=== PATIENT | male | born 1990 | race Caucasian/White ===

== ENCOUNTER → 2020-06-30 08:12 | Outpatient (BNVA) | payer OTHER, MEDICAID, SELFPAY | PROVIDERS: PCP Internal Medicine; Referring Provider Internal Medicine; Visit Provider Internal Medicine Endocrinology, Diabetes & Metabolism | DX: Z76.89 Persons encountering health services in other specified circumstances (principal) ==

== ENCOUNTER 2020-06-30 17:00 | Outpatient (RCR) | payer OTHER, MEDICAID, SELFPAY | END 2020-07-03 23:55 | disposition home or self-care (01) | LOC: HO.PAOS 17:00 | PROVIDERS: Visit Provider Psychologist | DX: F44.81 Dissociative identity disorder (principal); F33.1 Major depressive disorder, recurrent, moderate; F90.9 Attention-deficit hyperactivity disorder, unspecified type; F43.10 Post-traumatic stress disorder, unspecified; F50.81 Binge eating disorder | CPT/HCPCS: 90834 ==

== ENCOUNTER 2020-12-16 09:05 | Outpatient (REF) | payer OTHER, MEDICAID, SELFPAY ==
[2020-12-16 12:04] LABS: Estimated Average Glucose 120 mg/dL; Hemoglobin A1c % 5.8 %
[2020-12-16 12:05] LABS: Glucose Fasting 114 mg/dL (60-99)
[2020-12-16 12:06] LABS: Alanine Aminotransferase 46 U/L (0-40); Albumin Level 4.3 g/dL (3.5-5.0); Alkaline Phosphatase 65 U/L (39-117); Anion Gap 19 (12-20); Aspartate Amino Transferase 51 U/L (5-37); Bilirubin Total 0.7 mg/dL (0.0-1.0); Blood Urea Nitrogen 13 mg/dL (9-16); Calcium 9.8 mg/dL (8.4-10.2); Carbon Dioxide 20 mmol/L (22-29); Chloride 100 mmol/L (96-108); Cholesterol 224 mg/dL; Estimated Glomerular Filt Rate > 60; HDL Cholesterol 48 mg/dL; LDL Cholesterol Calculated 137 mg/dl; Potassium 4.7 mmol/L (3.3-5.1); Sodium 134 mmol/L (135-145); Triglycerides 195 mg/dL
[2020-12-16 12:07] LABS: Free T4 (Free Thyroxine) 1.04 ng/dL (0.71-1.85); Thyroid Stimulating Hormone 1.14 uIU/mL (0.32-4.0)
[2020-12-16 12:34] LABS: Vitamin B12 329 pg/mL (200-900)
[2020-12-17 07:52] LABS: LDL Cholesterol Direct 142 mg/dL (<100)
== END 2020-12-16 09:06 | disposition home or self-care (01) ==
LOC: HO.LAB 09:05
PROVIDERS: PCP Internal Medicine; Visit Provider Internal Medicine Endocrinology, Diabetes & Metabolism
DX: R73.03 Prediabetes (principal); E66.01 Morbid (severe) obesity due to excess calories; Z68.44 Body mass index [BMI] 60.0-69.9, adult; E55.9 Vitamin D deficiency, unspecified; I10 Essential (primary) hypertension; G89.29 Other chronic pain; M54.9 Dorsalgia, unspecified
CPT/HCPCS: 36415; 80053; 80061; 82607; 83036; 83721; 84439; 84443

== ENCOUNTER → 2021-01-05 08:20 | Outpatient (BNVA) | payer OTHER, MEDICAID, SELFPAY | PROVIDERS: PCP Internal Medicine; Visit Provider Anesthesiology ==

== ENCOUNTER 2022-04-28 09:31 | Outpatient (REF) | payer OTHER, MEDICAID, SELFPAY ==
[2022-04-28 09:53] LABS: MANUAL DIFF FLAG NO
[2022-04-28 10:35] LABS: Basophils Percent Auto 0.5 % (0-2); Eosinophils Absolute Auto 0.1 X10*3/uL (0.0-0.4); Eosinophils Percent Auto 1.4 % (0-4); Hematocrit 43.9 % (42.0-52.0); Hemoglobin 14.9 g/dl (14.0-18.0); Imm Gran Abs Auto 0.05 X10*3/uL (0.00-0.03); Imm Gran Pct Auto 0.8 % (0.0-0.4); Lymphocytes Absolute Auto 1.3 X10*3/uL (1.2-4.9); Lymphocytes Percent Auto 19.8 % (20-40); Mean Corpuscular HGB Conc 33.9 g/dl (31.0-36.0); Mean Corpuscular Hemoglobin 30.3 pg (27.0-33.0); Mean Corpuscular Volume 89.4 fL (80.0-98.0); Mean Platelet Volume 9.5 fL (9.4-12.4); Monocytes Absolute Auto 0.7 X10*3/uL (0.1-1.2); Monocytes Percent Auto 10.2 % (2-11); Neutrophils Absolute Auto 4.4 x10*3/uL (2.0-8.3); Neutrophils Percent Auto 67.3 % (45-73); Platelet Count 307 X10*3/uL (160-400); Red Blood Count 4.91 X10*6/uL (4.60-5.80); White Blood Count 6.6 X10*3/uL (4.8-10.8)
[2022-04-28 11:15] LABS: Alanine Aminotransferase 34 U/L (0-40); Alkaline Phosphatase 86 U/L (39-117); Anion Gap 20 (12-20); Aspartate Amino Transferase 28 U/L (5-37); Bilirubin Total 0.5 mg/dL (0.0-1.0); Blood Urea Nitrogen 10 mg/dL (9-16); Calcium 9.4 mg/dL (8.4-10.2); Carbon Dioxide 21 mmol/L (22-29); Chloride 99 mmol/L (96-108); Cholesterol 196 mg/dL; Estimated Glomerular Filt Rate > 60; Glucose Fasting 197 mg/dL (60-99); HDL Cholesterol 41 mg/dL; LDL Cholesterol Calculated 128 mg/dl; Potassium 4.6 mmol/L (3.3-5.1); Sodium 135 mmol/L (135-145); Total Protein 7.2 g/dL (6.5-8.0); Triglycerides 138 mg/dL
[2022-04-28 11:28] LABS: Thyroid Stimulating Hormone 1.63 uIU/mL (0.32-4.0)
== END 2022-04-28 09:32 | disposition home or self-care (01) ==
LOC: HO.LAB 09:31
PROVIDERS: PCP Internal Medicine; Visit Provider Internal Medicine
DX: Z00.00 Encounter for general adult medical examination without abnormal findings (principal); Z13.0 Encounter for screening for diseases of the blood and blood-forming organs and certain disorders involving the immune mechanism; Z13.9 Encounter for screening, unspecified
CPT/HCPCS: 36415; 80053; 80061; 84443; 85025

== ENCOUNTER → 2022-04-29 08:57 | Outpatient (BNVA) | payer OTHER, MEDICAID, SELFPAY | PROVIDERS: PCP Internal Medicine; Visit Provider Internal Medicine Endocrinology, Diabetes & Metabolism | DX: E11.69 Type 2 diabetes mellitus with other specified complication (principal); E66.01 Morbid (severe) obesity due to excess calories; Z68.45 Body mass index [BMI] 70 or greater, adult | CPT/HCPCS: 83036 ==

== ENCOUNTER 2022-09-01 08:54 | Outpatient (REF) | payer OTHER, MEDICAID, SELFPAY ==
[2022-09-01 11:33] LABS: Cholesterol 148 mg/dL; HDL Cholesterol 43 mg/dL; LDL Cholesterol Calculated 84 mg/dl; Triglycerides 107 mg/dL
[2022-09-01 11:36] LABS: Estimated Average Glucose 151 mg/dL; Hemoglobin A1c % 6.9 %
== END 2022-09-01 08:55 | disposition home or self-care (01) ==
LOC: HO.10HDL 08:54
PROVIDERS: Absent Provider Internal Medicine; Visit Provider Internal Medicine Endocrinology, Diabetes & Metabolism
DX: E11.69 Type 2 diabetes mellitus with other specified complication (principal); E66.01 Morbid (severe) obesity due to excess calories
CPT/HCPCS: 36415; 80061; 83036

== ENCOUNTER → 2022-09-02 07:51 | Outpatient (BNVA) | payer OTHER, MEDICAID, SELFPAY | PROVIDERS: PCP Internal Medicine; Visit Provider Internal Medicine Endocrinology, Diabetes & Metabolism | DX: E11.69 Type 2 diabetes mellitus with other specified complication (principal); E66.01 Morbid (severe) obesity due to excess calories; Z79.84 Long term (current) use of oral hypoglycemic drugs; Z68.45 Body mass index [BMI] 70 or greater, adult | CPT/HCPCS: 82947 ==

== ENCOUNTER → 2022-09-14 16:22 | Outpatient (BNVA) | payer OTHER, MEDICAID, SELFPAY | PROVIDERS: PCP Internal Medicine; Visit Provider Psychiatry & Neurology Psychiatry | DX: R73.03 Prediabetes (principal) ==

== ENCOUNTER → 2022-10-28 14:00 | Outpatient (BNVA) | payer OTHER, MEDICAID, SELFPAY | PROVIDERS: PCP Internal Medicine; Visit Provider Psychiatry & Neurology Psychiatry | DX: R73.03 Prediabetes (principal) ==

== ENCOUNTER → 2022-12-22 17:07 | Outpatient (BNVA) | payer OTHER, SELFPAY | PROVIDERS: PCP Internal Medicine; Visit Provider Psychiatry & Neurology Psychiatry ==

== ENCOUNTER 2023-01-27 16:53 | Outpatient (AMB) | payer OTHER, SELFPAY ==
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
== END 2023-01-27 17:30 | disposition home or self-care (01) ==
LOC: HO.HOP 16:53
PROVIDERS: PCP Internal Medicine; Visit Provider Psychiatry & Neurology Psychiatry
DX: F33.9 Major depressive disorder, recurrent, unspecified (principal); F43.12 Post-traumatic stress disorder, chronic; E66.01 Morbid (severe) obesity due to excess calories; E11.69 Type 2 diabetes mellitus with other specified complication; M48.00 Spinal stenosis, site unspecified
CPT/HCPCS: 90833; 99213; 99214

== ENCOUNTER → 2023-01-27 16:53 | Outpatient (BNVA) | payer OTHER, SELFPAY | PROVIDERS: PCP Internal Medicine; Visit Provider Psychiatry & Neurology Psychiatry ==

== ENCOUNTER 2023-01-31 06:14 | Outpatient (REF) | payer OTHER, SELFPAY | END 2023-01-31 06:15 | disposition home or self-care (01) | LOC: HO.LAB 06:14 | PROVIDERS: PCP Internal Medicine; Visit Provider Internal Medicine | DX: E03.9 Hypothyroidism, unspecified (principal); D64.9 Anemia, unspecified; N28.9 Disorder of kidney and ureter, unspecified; R73.9 Hyperglycemia, unspecified; E78.5 Hyperlipidemia, unspecified | CPT/HCPCS: 36415; 80053; 80061; 83036; 84443; 85025 ==

== ENCOUNTER 2023-04-18 16:14 | Outpatient (AMB) | payer OTHER, MEDICAID, SELFPAY ==
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
== END 2023-04-18 16:14 | disposition home or self-care (01) ==
LOC: HO.HOP 16:14
PROVIDERS: PCP Internal Medicine; Visit Provider Psychiatry & Neurology Psychiatry
DX: F33.9 Major depressive disorder, recurrent, unspecified (principal); F43.12 Post-traumatic stress disorder, chronic
CPT/HCPCS: 99214

== ENCOUNTER → 2023-04-18 16:14 | Outpatient (BNVA) | payer OTHER, MEDICAID, SELFPAY | PROVIDERS: PCP Internal Medicine; Visit Provider Psychiatry & Neurology Psychiatry ==

== ENCOUNTER 2023-05-06 09:01 | Outpatient (REF) | payer OTHER, MEDICAID, SELFPAY | END 2023-05-06 09:02 | disposition home or self-care (01) | LOC: HO.LAB 09:01 | PROVIDERS: PCP Internal Medicine; Visit Provider Internal Medicine | DX: Z13.89 Encounter for screening for other disorder (principal) ==

== ENCOUNTER 2023-05-19 09:38 | Outpatient (AMB) | payer OTHER, MEDICAID, SELFPAY ==
[2023-05-19 09:44] VITALS: BP 134/70; PULSE 74; O2SAT 98; BMI 71.2
--- NOTE | 2023-05-19 09:44 | MHC.PC.OV ---
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: Not Required per policy Accompanied by: Self / Same As Patient Allergies Sulfa (Sulfonamide Antibiotics) [SULFA (SULFONAMIDE ANTIBIOTICS)] Allergy (Unknown, Verified 05/19/23 09:45) RASH sulfamethoxazole [From BACTRIM] Allergy (Unknown, Verified 05/19/23 09:45) RASH trimethoprim [From BACTRIM] Allergy (Unknown, Verified 05/19/23 09:45) RASH Medication List - Last Reconciled 05/19/23 by Zaid Fairchild MD atorvastatin 10 mg PO DAILY blood sugar diagnostic (FreeStyle Lite Strips) As directed tests 2 X/day blood-glucose meter (FreeStyle Lite Meter kit) As directed 2 X/day buspirone 15 mg PO TID 30 days cholecalciferol (vitamin D3) 50 mcg PO DAILY 90 days clonazepam 0.5 mg PO TID clonidine HCl 0.1 mg PO BID 90 days duloxetine 60 mg PO BID gabapentin 300 mg PO TID lancets (FreeStyle Lancets) As directed tests 2 X/day lisinopril 10 mg PO DAILY lorazepam 1 mg PO DAILY PRN metformin ER 500 mg PO BID 90 days naproxen 500 mg PO Q12H PRN oxcarbazepine 300 mg PO BID pen needle, diabetic (BD Ultra-Fine [place] Pen Needle) 1 ea subcut DIRECTED 90 days propranolol 20 mg (2 x 10 mg) PO TID 30 days risperidone 0.5 mg PO BID triamcinolone acetonide 0.5% 1 appl topical TID Tobacco use date assessed: 08/13/22 Dental Screening Dental Screen Date: 05/19/23 Did you have a dental visit in the last 12 months?: No Did you have a dental problem in the last 6 months where you did not have access to dental care?: No Was dental information given to patient?: Patient has dentist HPI 6 month f/u HPI Details DM morbid obesity htn; has not followed up with weight management [facility] Medical History Major depression, recurrent, chronic Chronic post-traumatic stress disorder (PTSD) Morbid obesity Type 2 diabetes mellitus with morbid obesity Spinal stenosis Spondylolisthesis of lumbar region Diabetes mellitus Anxiety Depression Hypertension Prediabetes Vitamin D deficiency Morbid obesity Surgical History No pertinent past surgical history Family History Father Hypertension Heart disease CVA (cerebral vascular accident) Mother Hypertension Diabetes Thyroid nodule Obesity Social History Housing: House Alcohol intake: current Alcohol intake frequency: holidays/special occasions only Patient Tobacco Use Status: Never used Tobacco e-Cigarette/Vaping Use: Never Used Second Hand Smoke Exposure: No service: No Current occupational status: disabled Cognitive needs: No Hearing needs: No Vision needs: No Questionnaire PHQ-9 Over the last 2 weeks, how often have you been bothered by any of the following problems? 1. Little interest or pleasure in doing things: more than half the days 2. Feeling down, depressed, or hopeless: nearly every day 3. Trouble falling or staying asleep, or sleeping too much: more than half the days 4. Feeling tired or having little energy: more than half the days 5. Poor appetite or overeating: more than half the days 6. Feeling bad about yourself - or that you are a failure or have let yourself or your family down: more than half the days 7. Trouble concentrating on things, such as reading the newspaper or watching television: more than half the days 8. Moving or speaking so slowly that other people could have noticed. Or the opposite - being so fidgety or restless that you have been moving around a lot more than usual: more than half the days 9. Thoughts that you would be better off or of hurting yourself in some way: several days Total score: 18 Depression Screening Interpretation: Positive Depression Screening Done: Yes 34706 - PHQ-9 Billing: Yes Source: Developed by Drs. Kyle Chiang, Padmaja Shen, Maximus Cyr and colleagues, with an educational pastor from [employer]. Thrive Questionnaire Date Thrive assessed: 08/13/22 AUDIT C Alcohol Use Questionnaire (AUDIT-C) 1. How often do you have a drink containing alcohol?: Never Total Score: 0 Score Reviewed/Action Taken: Yes CARLOS-7 AMB Questionnaire CARLOS-7 Date CARLOS - 7 assessed: 11/19/22 Source: Developed by Drs. Kyle Chiang, Padmaja Shen, Maximus Cyr and colleagues, with an educational pastor from [employer]. Review of Systems Const Denies chills, Denies headache(s) and Denies weight loss ENT Denies headache(s) Card Denies chest pain, Denies syncope, Denies irregular heart rhythm and Denies dyspnea Resp Denies chest congestion, Denies cough and Denies dyspnea GI Denies abdominal pain, Denies change in stool character, Denies nausea and Denies vomiting Musc Denies deformity and Denies joint swelling Neuro Denies syncope and Denies headache(s) Physical exam (Primary Care) Vital Signs: Last Vital Signs Pulse 74 05/19/23 09:44 BP 134/70 05/19/23 09:44 Pulse Ox 98 05/19/23 09:44 Oxygen Delivery Method Room Air 05/19/23 09:44 BMI result Body Mass Index 71.2 Tobacco/Smoking Status: Tobacco use Status Tobacco use date assessed 08/13/22 05/19/23 09:52 Patient Tobacco Use Status Never used Tobacco 05/19/23 09:52 e-Cigarette/Vaping Use Never Used 05/19/23 09:52 PHQ-9: PHQ-9 Score PHQ-9: Total score 18 05/19/23 09:52 Depression Screening Interpretation: Positive Thrive Assessment: Date of Thrive Assessment Date Thrive assessed 08/13/22 05/19/23 09:52 Const General: cooperative, comfortable, no acute distress and alert Neck Neck: Yes no lymphadenopathy Thyroid: Thyroid normal Resp Effort & Inspection: normal respiratory effort Auscultation: clear to auscultation bilaterally Percussion: percussion normal Cardio Jugular venous distension: no JVD Palpation: normal PMI Rate: regular rate Rhythm: regular rhythm Heart sounds: S1 normal heart sound present and S2 normal heart sound present GI Inspection: Yes normal to inspection Palpation (GI): No hepatosplenomegaly present Skin General skin exam: no rashes or lesions noted Extrem General: Yes no clubbing, cyanosis or edema Assessment and Plan Assessment & Plan (1) Major depression, recurrent, chronic: Code(s): F33.9 - Major depressive disorder, recurrent, unspecified Plan: sees psych (2) Hyperlipidemia: Code(s): E78.5 - Hyperlipidemia, unspecified Plan: due for labs (3) Morbid obesity: Code(s): E66.01 - Morbid (severe) obesity due to excess calories Plan: encouraged to follow through with weight management (4) Type 2 diabetes mellitus with morbid obesity: Code(s): E11.69 - Type 2 diabetes mellitus with other specified complication; E66.01 - Morbid (severe) obesity due to excess calories Plan: stable; same rx (5) Hypertension: Code(s): I10 - Essential (primary) hypertension Plan: stable; same rx Orders: Orders Complete Blood Count Auto Diff Today D64.9 - Anemia, unspecified Lipid Panel Today E78.5 - Hyperlipidemia, unspecified Comprehensive [place]. Panel Fast Today N28.9 - Disorder of kidney and ureter, unspecified Microalbumin, Random (w Creat) Today E11.69 - Type 2 diabetes mellitus with other specified complication, E66.01 - Morbid (severe) obesity due to excess calories Thyroid Stimulating Hormone Today E03.9 - Hypothyroidism, unspecified Hemoglobin A1c Today R73.9 - Hyperglycemia, unspecified Coding Level of Care Code Tele Est Pt Level 4 (55430) Diagnoses Major depression, recurrent, chronic F33.9 Hyperlipidemia E78.5 Morbid obesity E66.01 Type 2 diabetes mellitus with morbid obesity E11.69; E66.01 Hypertension I10
== END 2023-05-19 10:01 | disposition home or self-care (01) ==
PROVIDERS: Visit Provider Internal Medicine
DX: E11.69 Type 2 diabetes mellitus with other specified complication (principal); F33.9 Major depressive disorder, recurrent, unspecified; E66.01 Morbid (severe) obesity due to excess calories; Z68.45 Body mass index [BMI] 70 or greater, adult; E78.5 Hyperlipidemia, unspecified; I10 Essential (primary) hypertension
CPT/HCPCS: 99214

== ENCOUNTER 2023-06-08 16:15 | Outpatient (AMB) | payer OTHER, MEDICAID, SELFPAY ==
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
== END 2023-06-08 16:16 | disposition home or self-care (01) ==
LOC: HO.HOP 16:15
PROVIDERS: PCP Internal Medicine; Visit Provider Psychiatry & Neurology Psychiatry
DX: F33.9 Major depressive disorder, recurrent, unspecified (principal); F43.12 Post-traumatic stress disorder, chronic; E11.69 Type 2 diabetes mellitus with other specified complication; E66.01 Morbid (severe) obesity due to excess calories; M48.00 Spinal stenosis, site unspecified
CPT/HCPCS: 90833; 99213

== ENCOUNTER → 2023-06-08 16:15 | Outpatient (BNVA) | payer OTHER, MEDICAID, SELFPAY | PROVIDERS: PCP Internal Medicine; Visit Provider Psychiatry & Neurology Psychiatry ==

== ENCOUNTER 2023-07-21 16:14 | Outpatient (AMB) | payer OTHER, MEDICAID, SELFPAY ==
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
== END 2023-07-21 16:14 | disposition home or self-care (01) ==
LOC: HO.HOP 16:14
PROVIDERS: PCP Internal Medicine; Visit Provider Psychiatry & Neurology Psychiatry
DX: F33.9 Major depressive disorder, recurrent, unspecified (principal); F43.12 Post-traumatic stress disorder, chronic; E11.69 Type 2 diabetes mellitus with other specified complication; E66.01 Morbid (severe) obesity due to excess calories; M48.00 Spinal stenosis, site unspecified
CPT/HCPCS: 99214

== ENCOUNTER → 2023-07-21 16:14 | Outpatient (BNVA) | payer OTHER, MEDICAID, SELFPAY | PROVIDERS: PCP Internal Medicine; Visit Provider Psychiatry & Neurology Psychiatry ==

== ENCOUNTER 2023-09-29 17:10 | Outpatient (AMB) | payer OTHER, MEDICAID, SELFPAY ==
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
== END 2023-09-29 17:11 | disposition home or self-care (01) ==
LOC: HO.HOP 17:10
PROVIDERS: PCP Internal Medicine; Visit Provider Psychiatry & Neurology Psychiatry
DX: F33.9 Major depressive disorder, recurrent, unspecified (principal); F43.12 Post-traumatic stress disorder, chronic; E66.01 Morbid (severe) obesity due to excess calories; E11.69 Type 2 diabetes mellitus with other specified complication; M48.00 Spinal stenosis, site unspecified
CPT/HCPCS: 99214

== ENCOUNTER → 2023-09-29 17:10 | Outpatient (BNVA) | payer OTHER, MEDICAID, SELFPAY | PROVIDERS: PCP Internal Medicine; Visit Provider Psychiatry & Neurology Psychiatry ==

== ENCOUNTER 2023-11-10 08:03 | Outpatient (REF) | payer OTHER, MEDICAID, SELFPAY ==
[2023-11-10 08:33] LABS: MANUAL DIFF FLAG NO
[2023-11-10 08:48] LABS: Basophils Absolute Auto 0.1 X10*3/uL (0.0-0.2); Basophils Percent Auto 0.6 % (0-2); Eosinophils Absolute Auto 0.3 X10*3/uL (0.0-0.4); Eosinophils Percent Auto 3.1 % (0-4); Hematocrit 45.7 % (42.0-52.0); Hemoglobin 15.4 g/dl (14.0-18.0); Imm Gran Abs Auto 0.03 X10*3/uL (0.00-0.03); Imm Gran Pct Auto 0.3 % (0.0-0.4); Lymphocytes Absolute Auto 3.5 X10*3/uL (1.2-4.9); Lymphocytes Percent Auto 37.4 % (20-40); Mean Corpuscular HGB Conc 33.7 g/dl (31.0-36.0); Mean Corpuscular Hemoglobin 29.8 pg (27.0-33.0); Mean Corpuscular Volume 88.6 fL (80.0-98.0); Mean Platelet Volume 9.1 fL (9.4-12.4); Monocytes Absolute Auto 0.6 X10*3/uL (0.1-1.2); Monocytes Percent Auto 6.5 % (2-11); Neutrophils Absolute Auto 4.8 x10*3/uL (2.0-8.3); Neutrophils Percent Auto 52.1 % (45-73); Platelet Count 332 X10*3/uL (160-400); Red Blood Count 5.16 X10*6/uL (4.60-5.80); White Blood Count 9.3 X10*3/uL (4.8-10.8)
[2023-11-10 08:56] LABS: Estimated Average Glucose 180 mg/dL; Hemoglobin A1c % 7.9 % (<6.0)
[2023-11-10 09:22] LABS: Alanine Aminotransferase 29 U/L (0-40); Albumin Level 4.1 g/dL (3.5-5.0); Alkaline Phosphatase 87 U/L (39-117); Anion Gap 11 (12-20); Aspartate Amino Transferase 21 U/L (5-37); Bilirubin Total 0.6 mg/dL (0.0-1.0); Blood Urea Nitrogen 11 mg/dL (9-16); Calcium 9.8 mg/dL (8.4-10.2); Carbon Dioxide 29 mmol/L (22-29); Chloride 100 mmol/L (96-108); Cholesterol 210 mg/dL (<200); Estimated Glomerular Filt Rate > 60; Glucose Fasting 171 mg/dL (60-99); HDL Cholesterol 38 mg/dL (>40); LDL Cholesterol Calculated 136 mg/dL (<100); Potassium 4.4 mmol/L (3.3-5.1); Sodium 136 mmol/L (135-145); Total Protein 7.6 g/dL (6.5-8.0); Triglycerides 180 mg/dL (<150)
[2023-11-10 09:36] LABS: Thyroid Stimulating Hormone 4.13 uIU/mL (0.32-4.0)
== END 2023-11-10 08:04 | disposition home or self-care (01) ==
LOC: HO.LAB 08:03
PROVIDERS: PCP Internal Medicine; Visit Provider Internal Medicine
DX: N28.9 Disorder of kidney and ureter, unspecified (principal); E03.9 Hypothyroidism, unspecified; R73.9 Hyperglycemia, unspecified; D64.9 Anemia, unspecified; E78.5 Hyperlipidemia, unspecified
CPT/HCPCS: 36415; 80053; 80061; 83036; 84443; 85025

== ENCOUNTER 2023-11-22 08:55 | Outpatient (AMB) | payer OTHER, MEDICAID, SELFPAY ==
[2023-11-22 08:57] VITALS: BP 136/84; PULSE 74; O2SAT 98
--- NOTE | 2023-11-22 08:57 | MHC.PC.OV ---
Vital Signs 11/22/23 08:57 Height 6 ft BMI Reason not done Patient refused/unable BP 136/84 Blood Pressure Location Lt radial Position Sitting Pulse 74 Pulse Source Pulse Oximeter Pulse Oximetry (%) 98 Oxygen Delivery Method Room Air Intake Visit Reasons: Annual Exam [employer] Required: No Coronary Care Unit Nurse: Not Required per policy Accompanied by: Self / Same As Patient Allergies Sulfa (Sulfonamide Antibiotics) [SULFA (SULFONAMIDE ANTIBIOTICS)] Allergy (Unknown, Verified 11/22/23 08:57) RASH sulfamethoxazole [From BACTRIM] Allergy (Unknown, Verified 11/22/23 08:57) RASH trimethoprim [From BACTRIM] Allergy (Unknown, Verified 11/22/23 08:57) RASH Medication List - Last Reconciled 11/22/23 by Zaid Fairchild MD atorvastatin 10 mg PO DAILY blood sugar diagnostic (FreeStyle Lite Strips) As directed tests 2 X/day blood-glucose meter (FreeStyle Lite Meter kit) As directed 2 X/day buspirone 15 mg PO TID 30 days cholecalciferol (vitamin D3) 50 mcg PO DAILY 90 days clonazepam 0.5 mg PO TID clonidine HCl 0.1 mg PO BID 90 days duloxetine 60 mg PO BID gabapentin 300 mg PO TID lancets (FreeStyle Lancets) As directed tests 2 X/day lisinopril 10 mg PO DAILY lorazepam 1 mg PO DAILY PRN metformin ER 500 mg PO BID 90 days naproxen 500 mg PO Q12H PRN oxcarbazepine 300 mg PO BID pen needle, diabetic (BD Ultra-Fine [place] Pen Needle) 1 ea subcut DIRECTED 90 days propranolol 20 mg (2 x 10 mg) PO TID 30 days risperidone 0.5 mg PO BID triamcinolone acetonide 0.5% 1 appl topical TID Tobacco use date assessed: 11/22/23 Dental Screening Dental Screen Date: 11/22/23 Did you have a dental visit in the last 12 months?: No Did you have a dental problem in the last 6 months where you did not have access to dental care?: No Was dental information given to patient?: Patient has dentist HPI Annual Exam HPI Details diabetes hyperlipidemia and morbid obesity; A1C going up; compliant with meds [facility] Medical History Major depression, recurrent, chronic Chronic post-traumatic stress disorder (PTSD) Morbid obesity Type 2 diabetes mellitus with morbid obesity Spinal stenosis Spondylolisthesis of lumbar region Diabetes mellitus Anxiety Depression Hypertension Prediabetes Vitamin D deficiency Morbid obesity Surgical History No pertinent past surgical history Family History Father Hypertension Heart disease CVA (cerebral vascular accident) Mother Hypertension Diabetes Thyroid nodule Obesity Social History Housing: House Alcohol intake: current Alcohol intake frequency: holidays/special occasions only Patient Tobacco Use Status: Never used Tobacco e-Cigarette/Vaping Use: Never Used Second Hand Smoke Exposure: No service: No Current occupational status: disabled Cognitive needs: Yes (cane) Hearing needs: No Vision needs: No Questionnaire PHQ-9 Over the last 2 weeks, how often have you been bothered by any of the following problems? 1. Little interest or pleasure in doing things: more than half the days 2. Feeling down, depressed, or hopeless: nearly every day 3. Trouble falling or staying asleep, or sleeping too much: more than half the days 4. Feeling tired or having little energy: more than half the days 5. Poor appetite or overeating: more than half the days 6. Feeling bad about yourself - or that you are a failure or have let yourself or your family down: more than half the days 7. Trouble concentrating on things, such as reading the newspaper or watching television: more than half the days 8. Moving or speaking so slowly that other people could have noticed. Or the opposite - being so fidgety or restless that you have been moving around a lot more than usual: more than half the days 9. Thoughts that you would be better off or of hurting yourself in some way: several days Total score: 18 Depression Screening Interpretation: Positive Depression Screening Done: Yes 15257 - PHQ-9 Billing: Yes Source: Developed by Drs. Kyle Chiang, Padmaja Shen, Maximus Cyr and colleagues, with an educational pastor from [employer]. Thrive Questionnaire Date Thrive assessed: 11/22/23 I am a: Patient What is your living situation today?: I have a steady place to live Within the past 12 months, did the food you bought not last and you didn't have the money to get more?: Never true Within the past 12 months, did you worry whether your food would run out before you got money to buy more?: Never true Do you have trouble paying for medicines?: No Do you have trouble getting transportation to medical appointments?: No Do you have trouble paying your heating and electricity bill?: No Do you have trouble taking care of your child, family member or friend?: No Do you have trouble with day-to-day activities such as bathing, preparing meals, shopping, managing finances, etc.?: No Are you currently unemployed and looking for a job?: No Are you interested in more education?: No Please select the resources that you would like help with: None THRIVE Score: 0 AUDIT C Alcohol Use Questionnaire (AUDIT-C) 1. How often do you have a drink containing alcohol?: Never Total Score: 0 Score Reviewed/Action Taken: Yes CARLOS-7 AMB Questionnaire CARLOS-7 Date CARLOS - 7 assessed: 11/22/23 Feeling nervous, anxious, or on edge: 0 = Not at all Not being able to stop or control worryin = Not at all Worrying too much about different things: 0 = Not at all Trouble relaxin = Not at all Being so restless that it is hard to sit still: 0 = Not at all Becoming easily annoyed or irritable: 0 = Not at all Feeling afraid as if something awful might happen: 0 = Not at all Total CARLOS-7 score (0-4 normal; 5-9 mild; 10-14 moderate; 15-21 severe): 0 Source: Developed by Drs. Kyle Chiang, Padmaaj Shen, Maximus Cyr and colleagues, with an educational pastor from [employer]. Review of Systems Const Denies chills, Denies headache(s) and Denies weight loss ENT Denies headache(s) Card Denies chest pain, Denies syncope, Denies irregular heart rhythm and Denies dyspnea Resp Denies chest congestion, Denies cough and Denies dyspnea GI Denies abdominal pain, Denies change in stool character, Denies nausea and Denies vomiting Musc Denies deformity and Denies joint swelling Neuro Denies syncope and Denies headache(s) Physical exam (Primary Care) Vital Signs: Last Vital Signs Pulse 74 11/22/23 08:57 BP 136/84 11/22/23 08:57 Pulse Ox 98 11/22/23 08:57 Oxygen Delivery Method Room Air 11/22/23 08:57 Tobacco/Smoking Status: Tobacco use Status Tobacco use date assessed 11/22/23 11/22/23 08:59 Patient Tobacco Use Status Never used Tobacco 11/22/23 08:59 e-Cigarette/Vaping Use Never Used 11/22/23 08:59 PHQ-9: PHQ-9 Score PHQ-9: Total score 18 11/22/23 09:14 Depression Screening Interpretation: Positive Thrive Assessment: Date of Thrive Assessment Date Thrive assessed 11/22/23 11/22/23 08:59 Const General: cooperative, comfortable, no acute distress and alert Neck Neck: Yes no lymphadenopathy Thyroid: Thyroid normal Resp Effort & Inspection: normal respiratory effort Auscultation: clear to auscultation bilaterally Percussion: percussion normal Cardio Jugular venous distension: no JVD Palpation: normal PMI Rate: regular rate Rhythm: regular rhythm Heart sounds: S1 normal heart sound present and S2 normal heart sound present GI Inspection: Yes normal to inspection Palpation (GI): No hepatosplenomegaly present Skin General skin exam: no rashes or lesions noted Extrem General: Yes no clubbing, cyanosis or edema Assessment and Plan Assessment & Plan (1) Hyperlipidemia: Code(s): E78.5 - Hyperlipidemia, unspecified Plan: stable; same rx (2) Morbid obesity: Code(s): E66.01 - Morbid (severe) obesity due to excess calories Plan: will try referral again to weight management (3) Type 2 diabetes mellitus with morbid obesity: Code(s): E11.69 - Type 2 diabetes mellitus with other specified complication; E66.01 - Morbid (severe) obesity due to excess calories Plan: increase metformin Orders: Orders Lipid Panel Today Z13.220 - Encounter for screening for lipoid disorders Hemoglobin A1c Today R73.9 - Hyperglycemia, unspecified Glucose Fasting Today R73.9 - Hyperglycemia, unspecified Referrals Medical Weight Management Referral E66.01 - Morbid (severe) obesity due to excess calories Medications: New metformin 1,000 mg PO BID 180 tabs 8RF Refilled atorvastatin 10 mg PO DAILY 90 tabs 1RF Coding Level of Care Code Est Pt Level 4 (65522) Diagnoses Hyperlipidemia E78.5 Morbid obesity E66.01 Type 2 diabetes mellitus with morbid obesity E11.69; E66.01
== END 2023-11-22 09:22 | disposition home or self-care (01) ==
PROVIDERS: PCP Internal Medicine; Visit Provider Internal Medicine
DX: E78.5 Hyperlipidemia, unspecified (principal); E66.01 Morbid (severe) obesity due to excess calories; Z68.45 Body mass index [BMI] 70 or greater, adult; E11.69 Type 2 diabetes mellitus with other specified complication
CPT/HCPCS: 99214

== ENCOUNTER → 2023-12-02 10:29 | Outpatient (BNVA) | payer OTHER, MEDICAID, SELFPAY | PROVIDERS: PCP Internal Medicine; Visit Provider Physician Assistant Surgical ==

== ENCOUNTER 2024-01-03 17:29 | Outpatient (AMB) | payer OTHER, MEDICAID, SELFPAY ==
--- NOTE | 2024-01-03 16:22 | MHC.OFFVISPS ---
Intake Intake Visit Reasons: depression Allergies Sulfa (Sulfonamide Antibiotics) [SULFA (SULFONAMIDE ANTIBIOTICS)] Allergy (Unknown, Verified 11/22/23 08:57) RASH sulfamethoxazole [From BACTRIM] Allergy (Unknown, Verified 11/22/23 08:57) RASH trimethoprim [From BACTRIM] Allergy (Unknown, Verified 11/22/23 08:57) RASH Medication List - Last Reconciled 01/03/24 by Diego Marshall MD atorvastatin 10 mg PO DAILY blood sugar diagnostic (FreeStyle Lite Strips) As directed tests 2 X/day blood-glucose meter (FreeStyle Lite Meter kit) As directed 2 X/day buspirone 15 mg PO TID 30 days cholecalciferol (vitamin D3) 50 mcg PO DAILY 90 days clonazepam 0.5 mg PO TID clonidine HCl 0.1 mg PO BID 90 days duloxetine 60 mg PO BID gabapentin 300 mg PO TID lancets (FreeStyle Lancets) As directed tests 2 X/day lisinopril 10 mg PO DAILY lorazepam 1 mg PO DAILY PRN metformin 1,000 mg PO BID metformin ER 500 mg PO BID 90 days naproxen 500 mg PO Q12H PRN oxcarbazepine 300 mg PO BID pen needle, diabetic (BD Ultra-Fine [place] Pen Needle) 1 ea subcut DIRECTED 90 days propranolol 20 mg (2 x 10 mg) PO TID 30 days risperidone 0.5 mg PO BID triamcinolone acetonide 0.5% 1 appl topical TID HPI- Psychiatric Chief Complaint: depression HPI Narrative: Patient seen psychiatric follow-up patient's mood consistently labile still not on any medication for morbid obesity for reasons that are not totally clear he did not tolerate monjaro with his mother apparently. Patient remains on treatment for mood instability consistent with PTSD adrenergic interventions antidepressants patient has not had significant self-harming behavior chronic difficulties in leaving the house being with other people Past Psychiatric History: pt has hx of ptsd reactivity periods of depression reactivity continues see Dr. Kyle Black. Essentially patient remains homebound both for medical reasons secondary to weight chronic pain difficulty with ambulation and for emotional reasons with concerns regarding reactivity. I have encouraged the patient to consider getting his GED to look at working online he has not been interested in volunteer work working with [facility] he has been on the extensive regimen that includes antipsychotics antidepressants and mood stabilizing agents. This seems to stabilize the patient some degree pharmacologically but has limited coping strategies for his life and reactivity which include food online kev no evidence of oral facial dyskinesia patient is on Risperdal schedule clonazepam Trileptal Cymbalta patient is in something of a bind he might benefit from surgical treatment of morbid obesity however he knows that food bingeing as 1 of his coping strategies any can not imagine limiting this. He is being treated metabolically his weight limits his ability to walk and difficulties with chronic pain Mental Status Exam Mental Status Exam Patient Appearance: Well Grooomed Level of Consciousness: Awake and Appropriate Patient Behavior: Cooperative Mood Description: Anxious, Labile and Apprehensive Affect Description: Appropriate, Constricted and Apprehensive Speech Pattern: Clear Memory Description: Intact Delusions: Not Present Thought Process: Intact Thought Content: positive for Preoccupation, negative for Suicidal Ideation (Denies active plan) or negative for Homicidal Ideation Depressive Symptoms: Increased Anxiety, Increased Irritability, Crying Spells, Feelings of Worthlessness, Loss of Energy and Difficulty Concentrating Judgement: Fair Judgement and Insight: No evidence of oral facial dyskinesia chronic suicidal statements or fantasize regarding impulsive violence but no behavior really planning or any actual people but fear if he was not isolated that he would be overwhelmed by his feeling states he does feel Risperdal is helpful an Ativan helpful in rescue Telehealth Telehealth Telehealth Platform: Other (please specify) (doxsin me ) Location of provider rendering services: practice address Location of patient: address on file Patient Identification confirmed using: Name, : Yes Telehealth method: video Patient verbally consented to treatment: Yes Patient verbally consented to billing insurance company: Yes Minutes spent on Phone/Video with Pt.: 18 Assessment and Plan Assessment & Plan (1) Chronic post-traumatic stress disorder (PTSD): Status: Acute Code(s): F43.12 - Post-traumatic stress disorder, chronic (2) Major depression, recurrent, chronic: Status: Acute Code(s): F33.9 - Major depressive disorder, recurrent, unspecified (3) Morbid obesity: Status: Acute Code(s): E66.01 - Morbid (severe) obesity due to excess calories (4) Type 2 diabetes mellitus with morbid obesity: Status: Acute Code(s): E11.69 - Type 2 diabetes mellitus with other specified complication; E66.01 - Morbid (severe) obesity due to excess calories (5) Spinal stenosis: Status: Acute Code(s): M48.00 - Spinal stenosis, site unspecified Plan Continue plan of care strongly encouraged treatment of patient's morbid obesity and behavioral treatment of severe PTSD with isolation Limited strategies to manage anxiety and impulsivity. Chronic thoughts at times he would be better off but denies intent or plan has not acted on this has not harmed anyone has difficulty engaging world and his chronic pain and spinal stenosis or limiting his functioning No oral facial dyskinesia patient aware of risks benefits alternatives side effects. No evidence abuse of benzodiazepines has lorazepam for rescue Risperdal appears to have been helpful in decreasing agitation impulsivity Counseling and coordination of Care Diagnosis and Prognosis Counseling: Problematic behaviors secondary to diagnosis and Adequacy of current interventions Details: I spent [23] minutes reviewing the record, seeing the patient and documenting in the medical record. Counseling provided to the patient/caregiver as outlined below. Addressed patient/caregiver concerns regarding current medication regime including effective adherence. Addressed patient/caregiver concerns regarding diagnosis and prognosis including accuracy of diagnosis, prognosis over time, impact of diagnosis. Addressed patient/caregiver concerns regarding impact of recent stressors. [facility] Medical History Major depression, recurrent, chronic Chronic post-traumatic stress disorder (PTSD) Morbid obesity Type 2 diabetes mellitus with morbid obesity Spinal stenosis Spondylolisthesis of lumbar region Diabetes mellitus Anxiety Depression Hypertension Prediabetes Vitamin D deficiency Morbid obesity Surgical History No pertinent past surgical history Family History Father Hypertension Heart disease CVA (cerebral vascular accident) Mother Hypertension Diabetes Thyroid nodule Obesity Social History Housing: House Alcohol intake: current Alcohol intake frequency: holidays/special occasions only Patient Tobacco Use Status: Never used Tobacco e-Cigarette/Vaping Use: Never Used Second Hand Smoke Exposure: No service: No Current occupational status: disabled Cognitive needs: Yes (cane) Hearing needs: No Vision needs: No Social History: pt lives with his mother has 1 sister f hs on disability Substance History: none Trauma History: physical and emotional trauma Coding Level of Care Code Tele Est Pt Level 3 (49353) Diagnoses Chronic post-traumatic stress disorder (PTSD) F43.12 Major depression, recurrent, chronic F33.9 Morbid obesity E66.01 Type 2 diabetes mellitus with morbid obesity E11.69; E66.01 Spinal stenosis M48.00
== END 2024-01-03 17:33 | disposition home or self-care (01) ==
LOC: HO.HOP 17:29
PROVIDERS: PCP Internal Medicine; Visit Provider Psychiatry & Neurology Psychiatry
DX: F43.12 Post-traumatic stress disorder, chronic (principal); F33.9 Major depressive disorder, recurrent, unspecified; E66.01 Morbid (severe) obesity due to excess calories; E11.69 Type 2 diabetes mellitus with other specified complication; M48.00 Spinal stenosis, site unspecified
CPT/HCPCS: 99213

== ENCOUNTER → 2024-01-03 17:29 | Outpatient (BNVA) | payer OTHER, MEDICAID, SELFPAY | PROVIDERS: PCP Internal Medicine; Visit Provider Psychiatry & Neurology Psychiatry ==

== ENCOUNTER 2024-04-16 13:48 | Outpatient (AMB) | payer OTHER, MEDICAID, SELFPAY ==
--- NOTE | 2024-04-16 14:19 | MHC.OFFVISPS ---
Intake Intake Visit Reasons: depression Allergies Sulfa (Sulfonamide Antibiotics) [SULFA (SULFONAMIDE ANTIBIOTICS)] Allergy (Unknown, Verified 11/22/23 08:57) RASH sulfamethoxazole [From BACTRIM] Allergy (Unknown, Verified 11/22/23 08:57) RASH trimethoprim [From BACTRIM] Allergy (Unknown, Verified 11/22/23 08:57) RASH HPI- Psychiatric Chief Complaint: depression HPI Narrative: Patient seen psychiatric follow-up. Patient has chronic anxiety ruminations socially isolated difficulty leaving the house fears of engagement with the public at times. Did not tolerate initial medical treatment for obesity encouraged to try different alternatives he does have chronic pain and spinal issues which can make ambulation difficulty in addition to his weight. He would find it very difficult to follow the nutrition eating requirements with bypass surgery intermittently despondent thoughts at times of self-harm but has not acted on this. Close with his mother also gets a lot of support from his relationship with his cats that he cares for has been on treatment for depression and PTSD maximized including adrenergic location antidepressant low-dose antipsychotic oxcarbazepine he does seem relatively stable on this combination and appears to be tolerating not overly sedated patient denies any abnormal movements noted Past Psychiatric History: pt has hx of ptsd reactivity periods of depression reactivity continues see Dr. Kyle Black. Essentially patient remains homebound both for medical reasons secondary to weight chronic pain difficulty with ambulation and for emotional reasons with concerns regarding reactivity. I have encouraged the patient to consider getting his GED to look at working online he has not been interested in volunteer work working with [facility] he has been on the extensive regimen that includes antipsychotics antidepressants and mood stabilizing agents. This seems to stabilize the patient some degree pharmacologically but has limited coping strategies for his life and reactivity which include food online kev no evidence of oral facial dyskinesia patient is on Risperdal schedule clonazepam Trileptal Cymbalta patient is in something of a bind he might benefit from surgical treatment of morbid obesity however he knows that food bingeing as 1 of his coping strategies any can not imagine limiting this. He is being treated metabolically his weight limits his ability to walk and difficulties with chronic pain Mental Status Exam Mental Status Exam Patient Appearance: Well Grooomed Level of Consciousness: Awake and Appropriate Patient Behavior: Cooperative Mood Description: Anxious and Apprehensive Affect Description: Appropriate, Constricted and Apprehensive Speech Pattern: Clear Memory Description: Intact Delusions: Not Present Thought Process: Intact Thought Content: positive for Preoccupation, negative for Suicidal Ideation (Denies active plan) or negative for Homicidal Ideation Depressive Symptoms: Increased Anxiety, Increased Irritability, Crying Spells, Feelings of Worthlessness, Loss of Energy and Difficulty Concentrating Judgement: Fair Judgement and Insight: No evidence of oral facial dyskinesia chronic suicidal statements or fantasize regarding impulsive violence but no behavior really planning or any actual people but fear if he was not isolated that he would be overwhelmed by his feeling states he does feel Risperdal is helpful an Ativan helpful in rescue does have worries about upcoming Halloween in past incidents relationship to this Telehealth Telehealth Telehealth Platform: [employer] ) Location of provider rendering services: practice address Location of patient: address on file Patient Identification confirmed using: Name, : Yes Telehealth method: video Patient verbally consented to treatment: Yes Patient verbally consented to billing insurance company: Yes Minutes spent on Phone/Video with Pt.: 19 Assessment and Plan Assessment & Plan (1) Major depression, recurrent, chronic: Status: Acute Code(s): F33.9 - Major depressive disorder, recurrent, unspecified (2) Chronic post-traumatic stress disorder (PTSD): Status: Acute Code(s): F43.12 - Post-traumatic stress disorder, chronic (3) Morbid obesity: Status: Acute Code(s): E66.01 - Morbid (severe) obesity due to excess calories (4) Type 2 diabetes mellitus with morbid obesity: Status: Acute Code(s): E11.69 - Type 2 diabetes mellitus with other specified complication; E66.01 - Morbid (severe) obesity due to excess calories Plan Patient is on a fairly extensive amount of psychiatric medication has a history of severe PTS he with social isolation depression mood lability has not self harmed on this regimen no evidence of tardive dyskinesia weighing risks benefits current regimen appears to be helping. Tried to discourage social isolation discussed also online resources regarding education training . Patient does see Dr. Kyle Black for ongoing psychotherapy Medications: Refilled clonazepam 0.5 mg PO TID 90 tabs 1RF buspirone 15 mg PO TID 90 tabs 1RF 30 days Counseling and coordination of Care Details-Self Mgmt counseling: Issues related to management of PTSD symptoms and its impact on his life Medication management counseling: Effectiveness, Side effects and Dosing range Diagnosis and Prognosis Counseling: Problematic behaviors secondary to diagnosis and Adequacy of current interventions Details: I spent [26] minutes reviewing the record, seeing the patient and documenting in the medical record. Counseling provided to the patient/caregiver as outlined below. Addressed patient/caregiver concerns regarding current medication regime including effective adherence. Addressed patient/caregiver concerns regarding diagnosis and prognosis including accuracy of diagnosis, prognosis over time, impact of diagnosis. Addressed patient/caregiver concerns regarding impact of recent stressors. [facility] Medical History Major depression, recurrent, chronic Chronic post-traumatic stress disorder (PTSD) Morbid obesity Type 2 diabetes mellitus with morbid obesity Spinal stenosis Spondylolisthesis of lumbar region Diabetes mellitus Anxiety Depression Hypertension Prediabetes Vitamin D deficiency Morbid obesity Surgical History No pertinent past surgical history Family History Father Hypertension Heart disease CVA (cerebral vascular accident) Mother Hypertension Diabetes Thyroid nodule Obesity Social History Housing: House Alcohol intake: current Alcohol intake frequency: holidays/special occasions only Patient Tobacco Use Status: Never used Tobacco e-Cigarette/Vaping Use: Never Used Second Hand Smoke Exposure: No service: No Current occupational status: disabled Cognitive needs: Yes (cane) Hearing needs: No Vision needs: No Social History: pt lives with his mother has 1 sister f hs on disability Substance History: none Trauma History: physical and emotional trauma Coding Level of Care Code Tele Est Pt Level 4 (70410) Diagnoses Major depression, recurrent, chronic F33.9 Chronic post-traumatic stress disorder (PTSD) F43.12 Morbid obesity E66.01 Type 2 diabetes mellitus with morbid obesity E11.69; E66.01
== END 2024-04-16 16:14 | disposition home or self-care (01) ==
LOC: HO.HOP 13:48
PROVIDERS: PCP Internal Medicine; Visit Provider Psychiatry & Neurology Psychiatry
DX: F33.9 Major depressive disorder, recurrent, unspecified (principal); F43.12 Post-traumatic stress disorder, chronic; E66.01 Morbid (severe) obesity due to excess calories; E11.69 Type 2 diabetes mellitus with other specified complication
CPT/HCPCS: 99214

== ENCOUNTER → 2024-04-16 13:48 | Outpatient (BNVA) | payer OTHER, MEDICAID, SELFPAY | PROVIDERS: PCP Internal Medicine; Visit Provider Psychiatry & Neurology Psychiatry ==

== ENCOUNTER 2024-06-26 18:02 | Outpatient (AMB) | payer OTHER, SELFPAY ==
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
== END 2024-06-26 18:05 | disposition home or self-care (01) ==
LOC: HO.HOP 18:02
PROVIDERS: PCP Internal Medicine; Visit Provider Psychiatry & Neurology Psychiatry
DX: F43.12 Post-traumatic stress disorder, chronic (principal); F33.9 Major depressive disorder, recurrent, unspecified
CPT/HCPCS: 99214

== ENCOUNTER → 2024-06-26 18:02 | Outpatient (BNVA) | payer OTHER, MEDICAID, SELFPAY | PROVIDERS: PCP Internal Medicine; Visit Provider Psychiatry & Neurology Psychiatry | DX: E11.69 Type 2 diabetes mellitus with other specified complication (principal); E66.01 Morbid (severe) obesity due to excess calories ==

== ENCOUNTER 2024-10-10 15:39 | Outpatient (AMB) | payer OTHER, SELFPAY ==
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
== END 2024-10-10 15:40 | disposition home or self-care (01) ==
LOC: HO.HOP 15:39
PROVIDERS: PCP Internal Medicine; Visit Provider Psychiatry & Neurology Psychiatry
DX: F43.12 Post-traumatic stress disorder, chronic (principal)
CPT/HCPCS: 99214

== ENCOUNTER → 2024-10-10 15:39 | Outpatient (BNVA) | payer OTHER, MEDICAID, SELFPAY | PROVIDERS: PCP Internal Medicine; Visit Provider Psychiatry & Neurology Psychiatry | DX: E11.69 Type 2 diabetes mellitus with other specified complication (principal); E66.01 Morbid (severe) obesity due to excess calories ==

== ENCOUNTER 2024-11-22 08:57 | Outpatient (AMB) | payer MEDICAID, SELFPAY ==
[2024-11-22 09:06] VITALS: BP 138/92; PULSE 85; RESP 20; TEMP 36.3; O2SAT 98; BMI 71.8
--- NOTE | 2024-11-22 09:06 | MHC.PC.OV ---
Vital Signs 11/22/24 09:06 Height 6 ft Weight 529 lb 1.75 oz BMI 71.8 BP 138/92 H Blood Pressure Location Lt brachial Position Sitting Respiration 20 Pulse 85 Pulse Source Pulse Oximeter Temp 97.3 F Temp Source Temporal Artery Scan Pulse Oximetry (%) 98 Oxygen Delivery Method Room Air Intake Visit Reasons: ISIS from Dr Fairchild/Annual Exam Coating Engineer Required: No Accompanied by: Self / Same As Patient Allergies Sulfa (Sulfonamide Antibiotics) [SULFA (SULFONAMIDE ANTIBIOTICS)] Allergy (Unknown, Verified 11/22/24 09:10) RASH sulfamethoxazole [From BACTRIM] Allergy (Unknown, Verified 11/22/24 09:10) RASH trimethoprim [From BACTRIM] Allergy (Unknown, Verified 11/22/24 09:10) RASH Medication List - Last Reconciled 11/22/24 by Emily Jurado PA-C atorvastatin 10 mg PO DAILY azithromycin take 500 mg today (day 1), then 250 mg for 4 days (days 2-5) PO blood sugar diagnostic (FreeStyle Lite Strips) As directed tests 2 X/day blood-glucose meter (FreeStyle Lite Meter kit) As directed 2 X/day buspirone 15 mg PO TID cholecalciferol (vitamin D3) 50 mcg PO DAILY 90 days clonazepam 0.5 mg PO TID clonidine HCl 0.1 mg PO BID 90 days duloxetine 60 mg PO BID 90 days gabapentin 300 mg PO TID lancets (FreeStyle Lancets) As directed tests 2 X/day lisinopril 10 mg PO DAILY lorazepam 1 mg PO DAILY PRN metformin 1,000 mg PO BID naproxen 500 mg PO Q12H PRN oxcarbazepine 300 mg PO BID pen needle, diabetic (BD Ultra-Fine [place] Pen Needle) 1 ea subcut DIRECTED 90 days propranolol 20 mg (2 x 10 mg) PO TID 30 days risperidone 0.5 mg PO BID triamcinolone acetonide 0.5% 1 appl topical TID Tobacco use date assessed: 11/22/24 Dental Screening Dental Screen Date: 11/22/24 Did you have a dental visit in the last 12 months?: Yes Did you have a dental problem in the last 6 months where you did not have access to dental care?: No Was dental information given to patient?: Patient has dentist HPI ISIS from Dr Fairchild/Annual Exam HPI Details 34-year-old male with past medical history of morbid obesity, vitamin-D deficiency, hypertension, depression, anxiety, PTSD and hyperlipidemia last seen by Dr. Fairchild 10/2023 coming in for transfer of care/annual exam.? In review of the notes, patient follows with outpatient psych program last seen 09/2024 continue on current medications. Presenting for follow-up regarding management of type 2 diabetes mellitus. Elevated Hemoglobin A1c currently at 8.4%, with a historical difficulty in tolerating glucose monitoring approaches. Manages diabetes under maximum metformin therapy; referral to introduce weekly Ozempic injections facing needle phobia mitigated by family support. History of high cholesterol, managed with medication, integrated with diabetes monitoring to retest cholesterol levels following previous high values. Chronic depression is partly managed with behavioral therapy with Dr. Epstein virtually weekly, though insurance coverage and access pose challenges. Description of compounding factors include disrupted routine, inadequate food choices, and stress-related behaviors post familial loss of a pet. eye doctor - yearly he believes does not have a polygraph examiner [facility] Medical History Major depression, recurrent, chronic Chronic post-traumatic stress disorder (PTSD) Type 2 diabetes mellitus with morbid obesity Spinal stenosis Spondylolisthesis of lumbar region Anxiety Hypertension Prediabetes Vitamin D deficiency Surgical History No pertinent past surgical history Family History Father Hypertension Heart disease CVA (cerebral vascular accident) Mother Hypertension Diabetes Thyroid nodule Obesity Social History Housing: House Alcohol intake: current Alcohol intake frequency: holidays/special occasions only Patient Tobacco Use Status: Never used Tobacco e-Cigarette/Vaping Use: Never Used Second Hand Smoke Exposure: No service: No Current occupational status: disabled Cognitive needs: Yes (cane) Hearing needs: No Vision needs: No Questionnaire PHQ-9 Over the last 2 weeks, how often have you been bothered by any of the following problems? 1. Little interest or pleasure in doing things: several days 2. Feeling down, depressed, or hopeless: nearly every day 3. Trouble falling or staying asleep, or sleeping too much: not at all 4. Feeling tired or having little energy: several days 5. Poor appetite or overeating: more than half the days 6. Feeling bad about yourself - or that you are a failure or have let yourself or your family down: nearly every day 7. Trouble concentrating on things, such as reading the newspaper or watching television: more than half the days 8. Moving or speaking so slowly that other people could have noticed. Or the opposite - being so fidgety or restless that you have been moving around a lot more than usual: more than half the days 9. Thoughts that you would be better off or of hurting yourself in some way: nearly every day Total score: 17 Depression Screening Interpretation: Positive Depression Screening Follow-up: Existing condition and In treatment Depression Screening Done: Yes 97504 - PHQ-9 Billing: Yes Source: Developed by Drs. Kyle Chiang, Padmaja Shen, Maximus Cyr and colleagues, with an educational pastor from [employer]. Thrive Questionnaire Date Thrive assessed: 11/22/24 I am a: Patient What is your living situation today?: I choose not to answer this question Within the past 12 months, did the food you bought not last and you didn't have the money to get more?: I choose not to answer this question Within the past 12 months, did you worry whether your food would run out before you got money to buy more?: I choose not to answer this question Do you have trouble paying for medicines?: I choose not to answer this question Do you have trouble getting transportation to medical appointments?: I choose not to answer this question Do you have trouble paying your heating and electricity bill?: I choose not to answer this question Do you have trouble taking care of your child, family member or friend?: I choose not to answer this question Do you have trouble with day-to-day activities such as bathing, preparing meals, shopping, managing finances, etc.?: I choose not to answer this question Are you currently unemployed and looking for a job?: I choose not to answer this question Are you interested in more education?: I choose not to answer this question Please select the resources that you would like help with: None Currently or been in a relationship where the following occur: I choose not to answer THRIVE Score: 0 AUDIT C Alcohol Use Questionnaire (AUDIT-C) 1. How often do you have a drink containing alcohol?: Monthly or less 2. How many drinks containing alcohol do you have on a typical day when you are drinking?: 1 or 2 3. How often do you have six or more drinks on one occasion?: Never Total Score: 1 Score Reviewed/Action Taken: No CARLOS-7 AMB Questionnaire CARLOS-7 Date CARLOS - 7 assessed: 11/22/24 Feeling nervous, anxious, or on edge: 3 = Nearly every day Not being able to stop or control worryin = Nearly every day Worrying too much about different things: 3 = Nearly every day Trouble relaxin = Several days Being so restless that it is hard to sit still: 1 = Several days Becoming easily annoyed or irritable: 3 = Nearly every day Feeling afraid as if something awful might happen: 3 = Nearly every day Total CARLOS-7 score (0-4 normal; 5-9 mild; 10-14 moderate; 15-21 severe): 17 Source: Developed by Drs. Kyle Chiang, Padmaja Shen, Maximus Cyr and colleagues, with an educational pastor from [employer]. CARLOS-7 Assessment Billing CARLOS-7 Assessment Tool: CARLOS-7 Assessment 56127 Review of Systems Const Denies body aches, Denies chills, Denies fever(s), Denies headache(s) and Denies poor appetite Eyes Reports no additional complaints ENT Denies dysphagia, Denies dizziness, Denies headache(s) and Denies odynophagia Card Denies chest pain, Denies syncope, Denies edema, Denies irregular heart rhythm, Denies lightheadedness and Denies dyspnea Resp Denies cough and Denies dyspnea GI Denies abdominal pain, Denies constipation, Denies dysphagia, Reports diarrhea (occasional ), Denies nausea, Denies odynophagia and Denies vomiting Denies dysuria, Denies urinary frequency and Denies urinary hesitancy Musc Reports no additional complaints and Denies abnormal gait Skin/Breast Reports system reviewed and no additional complaints, except as documented Neuro Denies abnormal gait, Denies dizziness, Denies syncope and Denies headache(s) Psych Reports no additional complaints Physical exam (Primary Care) Vital Signs: Last Vital Signs Temp 97.3 F 11/22/24 09:06 Pulse 85 11/22/24 09:06 Resp 20 11/22/24 09:06 BP 138/92 H 11/22/24 09:06 Pulse Ox 98 11/22/24 09:06 Oxygen Delivery Method Room Air 11/22/24 09:06 BMI result Body Mass Index 71.8 Tobacco/Smoking Status: Tobacco use Status Tobacco use date assessed 11/22/24 11/22/24 09:08 Patient Tobacco Use Status Never used Tobacco 11/22/24 09:08 e-Cigarette/Vaping Use Never Used 11/22/24 09:08 PHQ-9: PHQ-9 Score PHQ-9: Total score 17 11/22/24 09:24 Depression Screening Interpretation: Positive Depression Screening Follow-up: Existing condition and In treatment Thrive Assessment: Date of Thrive Assessment Date Thrive assessed 11/22/24 11/22/24 09:08 Currently or been in a relationship where the following occur: I choose not to answer Const General: cooperative, healthy appearing, comfortable and no acute distress Orientation/consciousness: patient oriented x3 HENMT Head: Yes normocephalic Ears: hearing grossly normal bilaterally General nose exam: Normal external nose present Eyes General: appearance normal, both eyes and all related structures Conjunctivae: conjunctivae normal Neck Neck: Yes full ROM and Yes no lymphadenopathy Resp Effort & Inspection: normal respiratory effort Auscultation: clear to auscultation bilaterally, no crackles, no rales, no rhonchi and no wheezes Cardio Rate: regular rate Rhythm: regular rhythm Skin Other: Thickening of the skin of the bilateral lower extremities. Eczema bilateral hands General skin exam: no rashes or lesions noted Neuro General: patient oriented x3 Gait exam (Neuro): Normal gait present Extrem General: Yes normal to inspection, Yes full ROM and No edema Psych Affect: normal affect Attitude: cooperative Insight: Good insight present (Psych) Judgement: Good judgement present (Psych) Results AMB Hemoglobin A1c AMB Hemoglobin A1c 8.4 % Last Edit by Anel Guardado CMA on 11/22/24 09:22 Results Reviewed Results Reviewed: Laboratory Last Values Hgb A1c (Clinic) 8.4 % (4.0-6.0) H 11/22/24 09:21 Coding Level of Care Code Est Pt Prev Care 18-39y(91501) Diagnoses Physical exam Z00.00 Type 2 diabetes mellitus with morbid obesity E11.69; E66.01 Hyperlipidemia E78.5 Morbid (severe) obesity due to excess calories E66.01 Major depression, recurrent, chronic F33.9 Chronic post-traumatic stress disorder (PTSD) F43.12 Anxiety F41.9 Vitamin D deficiency E55.9 Eczema L30.9 Additional Codes CARLOS-7 Assessment Billing - CARLOS-7 Assessment Tool: CARLOS-7 Assessment 10948 ([id number]) PHQ-9 - 43217 - PHQ-9 Billing: Yes ([id number]) Assessment & Plan Assessment & Plan (1) Physical exam: Code(s): Z00.00 - Encounter for general adult medical examination without abnormal findings Category: Medical Plan: Patient is up-to-date on all recommended routine screenings and vaccinations for his age. I did order for updated blood work and plan to follow up in 3 months at this patient. I have placed additional plans involving referrals for podiatric assessment due to diabetes-related risk, and ensured continuity of psychiatric care with a mental health provider. Regular follow-up has been individualized with instructions on lifestyle modifications, whilst proactively watching for signs of deteriorating mental health in coordination with prescribed therapies. (2) Type 2 diabetes mellitus with morbid obesity: Code(s): E11.69 - Type 2 diabetes mellitus with other specified complication; E66.01 - Morbid (severe) obesity due to excess calories Category: Medical Plan: Decrease the amount of carbohydrates such as pasta, bread, rice, and potatoes and limit the amount of sweets. Although fruits are generally healthy they should be eaten in moderation as they are still high in sugar. Hemoglobin A1c goal of less than 7%. Currently on metformin BID. Plan to trial Ozempic weekly for diabetic management. He was also referred to endocrinology by his psych provider as well. I recognize his aversion to needles and have facilitated family support to assist with administration until further endocrinology input can be obtained. (3) Hyperlipidemia: Code(s): E78.5 - Hyperlipidemia, unspecified Category: Medical Plan: Avoid foods that are high in cholesterol such as red meat, fried foods, eggs and baked goods. Triglyceride goal of less than 150 and LDL goal of less than 100. Continue on atorvastatin 10. Ordered for updated blood work. (4) Morbid (severe) obesity due to excess calories: Code(s): E66.01 - Morbid (severe) obesity due to excess calories Category: Medical Plan: Healthy diet and regular exercise is encouraged. (5) Major depression, recurrent, chronic: Code(s): F33.9 - Major depressive disorder, recurrent, unspecified Category: Medical Plan: Patient is currently following with Psychiatry on oxcarbazepine, lorazepam, duloxetine, clonazepam and BuSpar. (6) Chronic post-traumatic stress disorder (PTSD): Code(s): F43.12 - Post-traumatic stress disorder, chronic Category: Medical Plan: Currently following with Psychiatry. See plan above (7) Anxiety: Code(s): F41.9 - Anxiety disorder, unspecified Category: Medical Plan: See plan above. (8) Vitamin D deficiency: Code(s): E55.9 - Vitamin D deficiency, unspecified Category: Medical Plan: Plan to repeat blood work and continue on supplementation. (9) Eczema: Code(s): L30.9 - Dermatitis, unspecified Category: Medical Plan: Refilled steroid cream today for eczema of bilateral hands. Plan This note was constructed using voice recognition software. While every effort has been made to ensure accuracy and prosthetic lab technician, still areas may have been included sometimes these areas may affect the content or meeting of the given symptoms. Total time spent caring for the patient today was 30 minutes. This includes time spent before the visit reviewing the chart, time spent during the visit, and time spent after the visit and documentation. Patient was informed and verbally consented to the use of an ambient scribe for clinic note documentation during this visit. Orders: Orders AMB Hemoglobin A1c Today E11.69 - Type 2 diabetes mellitus with other specified complication, E66.01 - Morbid (severe) obesity due to excess calories Comprehensive Met. Panel Today Z00.00 - Encounter for general adult medical examination without abnormal findings Lipid Panel Today E78.00 - Pure hypercholesterolemia, unspecified Vitamin B12 and Folate Today Z00.00 - Encounter for general adult medical examination without abnormal findings Vitamin D 25-OH Total Today Z00.00 - Encounter for general adult medical examination without abnormal findings Complete Blood Count Auto Diff Today Z00.00 - Encounter for general adult medical examination without abnormal findings TSH reflex Free T4 Today Z00.00 - Encounter for general adult medical examination without abnormal findings Free T4 (Free Thyroxine) Today Z00.00 - Encounter for general adult medical examination without abnormal findings Microalbumin, Random (w Creat) Today E11.9 - Type 2 diabetes mellitus without complications Referrals Podiatry Referral E66.01 - Morbid (severe) obesity due to excess calories Medications: New semaglutide (Ozempic) for 4 weeks 0.25 mg (0.368 mL) subcut QWEEK 3 mL 0RF E11.69 - Type 2 diabetes mellitus with other specified complication, E66.01 - Morbid (severe) obesity due to excess calories Refilled triamcinolone acetonide 0.5% 1 appl topical TID 15 grams 3RF
--- OUTSIDE RECORDS SUMMARY | 2024-11-22 09:28 | XMS_ITS | Encounter Summary ---
Author Organization [facility] Address [address] [place] [id number] Phone Care Team Providers Care River Rat Name Role Phone Monty De Los Santos MD Primary Care Provider [phone] Encounter Details Date Type Department Care Team (Late st Contact Info) Description 03/02/2011 Documentation EM Family Medicine [address] [place] [address] Family Medicine, Physician [address] [place], [place] [address] Social History Tobacco Use Types Packs/Day Years Used Date Smoking Tobacco: Never Assessed Sex and Gender Information Value Date Recorded Sex Assigned at Not on file Legal Sex Male 4:36 PM EDT Gender Identity Not on file Sexual Orientation Not on file documented as of this encounter Plan of Treatment Not on file documented as of this encounter Visit Diagnoses Not on filedocumented in this encounter Care Teams River Rat Relationship Specialty Start Date End Date Monty De Los Santos MD [address] [place] [id number] PCP - General 03/04/17 09/09/22 documented as of this encounter
--- OUTSIDE RECORDS SUMMARY | 2024-11-22 09:28 | XMS_ITS | Encounter Summary ---
Author Organization [facility] Address [address] [place] [address] Phone Care Team Providers Care Religious Activities Director Name Role Phone Monty De Los Santos MD Primary Care Provider [phone] Encounter Details Date Type Department Care Team (Late st Contact Info) Description 03/10/2017 Conversion Encounter [facility] [address] [place] [address] Social History Tobacco Use Types Packs/Day Years [...] on filedocumented in this encounter Care Teams Religious Activities Director Relationship Specialty Start Date End Date Mnoty De Los Santos MD [address] [place] [address] PCP - General 03/04/17 09/09/22 documented as of this encounter
--- OUTSIDE RECORDS SUMMARY | 2024-11-22 09:28 | XMS_ITS | Clinical Summary ---
Author Organization [facility] Address [address] [place] [address] Phone Care Team Providers Care Restaurant Lead Name Role Phone Unavailable Primary Care Provider Unavailabl e Immunizations Immunization Administration Dates Next Due DTP 12/23/1994, 1,02/17/1990,1989,1989 Hep B, ped/adol 03/07/2002,09/15/2001,06/20/2001 Hib (PRP-T) 11/22/1990 MMR 12/23/1994,11/22/1990 OPV 12/23/1994, 1,1989,1989 Td (adult) (MBL), 2 Lf tetan us toxoid, PF, adsorbed 09/15/2001 Family History Relation Name Status Comments Father Father: d from ?, Mother Alive Mother: Alive a nd well Social History Tobacco Use Types Packs/Day Years Used Date Smoking Tobacco: Never Assessed Sex and Gender Information Value Date Recorded Sex Assigned at Not on file Legal Sex Male 4:36 PM EDT Gender Identity Not on file Sexual Orientation Not on file Plan of Treatment Health Maintenance Due Date Last Done Comments DTaP,Tdap,and Td Vaccines (6 - Tdap) 09/16/2001 09/15/2001, 12/23/1994, 02/22/1991, Additional history exists Varicella Vaccines (1 of 2 - 13+ 2-dose series) 2002 Influenza Vaccines (#1) 2024 COVID-19 Vaccine ( season) 2024 HIB Vaccines Completed 11/22/1990 IPV Vaccines Completed 12/23/1994, 05/0 07/1990, 1989, Additional history exists MMR Vaccines Completed 12/23/1994, 11/22/1990 Hepatitis B Vaccines Completed 03/07/2002, 09/15/2001, 06/20/2001 HPV Vaccines Aged Out No longer eligi ble based on patient's age to complete this topic Hepatitis A Vaccines Aged Out No long er eligible based on patient's age to complete this topic Men B Vaccine Aged Out No longer elig ible based on patient's age to complete this topic Meningococcal Vaccine Aged Out No samantha alexandrea eligible based on patient's age to complete this topic Pneumococcal Vaccine Aged Out No long er eligible based on patient's age to complete this topic
== END 2024-11-22 09:52 | disposition home or self-care (01) ==
DX: Z00.00 Encounter for general adult medical examination without abnormal findings (principal); E11.69 Type 2 diabetes mellitus with other specified complication; E66.01 Morbid (severe) obesity due to excess calories; Z68.45 Body mass index [BMI] 70 or greater, adult; F33.9 Major depressive disorder, recurrent, unspecified; E78.5 Hyperlipidemia, unspecified; F43.12 Post-traumatic stress disorder, chronic; F41.9 Anxiety disorder, unspecified; E55.9 Vitamin D deficiency, unspecified; L30.9 Dermatitis, unspecified

== ENCOUNTER → 2024-11-22 08:57 | Outpatient (BNVA) | payer OTHER, MEDICAID, SELFPAY | PROVIDERS: PCP Internal Medicine | DX: Z00.00 Encounter for general adult medical examination without abnormal findings (principal); E11.69 Type 2 diabetes mellitus with other specified complication; E66.01 Morbid (severe) obesity due to excess calories; E78.5 Hyperlipidemia, unspecified; F33.9 Major depressive disorder, recurrent, unspecified; F43.12 Post-traumatic stress disorder, chronic; F41.9 Anxiety disorder, unspecified; E55.9 Vitamin D deficiency, unspecified; L30.9 Dermatitis, unspecified | CPT/HCPCS: 83036; 96127; 99395 ==

== ENCOUNTER 2025-01-02 08:54 | Outpatient (AMB) | payer OTHER, MEDICAID, SELFPAY ==
--- NOTE | 2025-01-02 08:34 | A.OFFVIS_ITS ---
Vital Signs 01/02/25 08:58 Height 6 ft Weight 502 lb 10.463 oz BMI 68.2 BP 132/80 Blood Pressure Location Rt brachial Position Sitting Pulse 94 Pulse Source Pulse Oximeter Pulse Oximetry (%) 96 Oxygen Delivery Method Room Air Intake Visit Reasons: Diabetes Type 2 Intake Note: Patient presents today for a follow-up on Type 2 Diabetes Mellitus: Last Diabetic eye exam was on: 02/03/2024, [facility] Last Podiatry exam was on: Patient does not see a Inspector Scales Most recent HbA1c: 8.4%, 11/22/2024 Random Glucose: 219 mg/dL Biology Internship Required: No Accompanied by: MOTHER Allergies Sulfa (Sulfonamide Antibiotics) [SULFA (SULFONAMIDE ANTIBIOTICS)] Allergy (Unknown, Verified 01/02/25 09:02) RASH sulfamethoxazole [From BACTRIM] Allergy (Unknown, Verified 01/02/25 09:02) RASH trimethoprim [From BACTRIM] Allergy (Unknown, Verified 01/02/25 09:02) RASH Medication List - Last Reconciled 01/02/25 by Verónica Plascencia NP atorvastatin 10 mg PO DAILY blood sugar diagnostic (FreeStyle Lite Strips) As directed tests 2 X/day blood-glucose meter (FreeStyle Lite Meter kit) As directed 2 X/day buspirone 15 mg PO TID cholecalciferol (vitamin D3) 50 mcg PO DAILY 90 days clonazepam 0.5 mg PO TID clonidine HCl 0.1 mg PO BID 90 days duloxetine 60 mg PO BID 90 days gabapentin 300 mg PO TID lancets (FreeStyle Lancets) As directed tests 2 X/day lisinopril 10 mg PO DAILY lorazepam 1 mg PO DAILY PRN metformin 1,000 mg PO BID oxcarbazepine 300 mg PO BID pen needle, diabetic (BD Ultra-Fine [place] Pen Needle) 1 ea subcut DIRECTED 90 days propranolol 20 mg (2 x 10 mg) PO TID 30 days risperidone 0.5 mg PO BID semaglutide (Ozempic) 0.25 mg (0.368 mL) subcut QWEEK triamcinolone acetonide 0.5% 1 appl topical TID HPI Comments Details: 34 YO pleasant male who is seen in consultation for T2DM at the request of PCP. He is here today in clinic with his mother. He was previously seen by Dr. Allen 09/02/2022. His care is complicated by anxiety, depression, agoraphobia, extreme fear of needles limiting his ability to test his sugar redings and back pain with radicular symptoms down right leg. He is followed closely by outpatient psychiatry. Initially diagnosed with T2DM approx 2020 Was initially started on treatment with metformin, lauren Had nausea on mounjaro Current regimen; OZEMPIC 0.25 MG WEEKLY was prescribed, not available yet at pharmacy Metformin 1000 mg b.i.d. Checks sugars: does not test Has severe anxiety with needle pricks. Reports low sugars; none that he knows of occasionally feels dizzy Most recent A1C 11/22/24 8.4%, 10/2023 7.9%, 01/2023 7.2% Family history of T2DM in his mother and father has Has eyes checked yearly, last eye exam January 2024, denies retinopathy. Has neuropathy: radicular pain from back, no foot pain on gabapentin has upcoming appt with podiatry No nephropathy, on SHARON-I. No recent microalbumin Has HLD, on statin. Last LDL 142 as measured on 12/14/20 Denies CAD. He has fasting lab orders in system Weight: 25 pound weight gain over past 5 years Has had diabetes education several years ago. [facility] Medical History (Updated 01/02/25 @ 10:01 by Verónica Plascencia NP) Lymphedema Major depression, recurrent, chronic Chronic post-traumatic stress disorder (PTSD) Type 2 diabetes mellitus with morbid obesity Spinal stenosis Spondylolisthesis of lumbar region Anxiety Hypertension Prediabetes Vitamin D deficiency Surgical History No pertinent past surgical history Family History Father Hypertension Heart disease CVA (cerebral vascular accident) Mother Hypertension Diabetes Thyroid nodule Obesity Social History Housing: House Alcohol intake: current Alcohol intake frequency: holidays/special occasions only Patient Tobacco Use Status: Never used Tobacco e-Cigarette/Vaping Use: Never Used Second Hand Smoke Exposure: No service: No Current occupational status: disabled Cognitive needs: Yes (cane) Hearing needs: No Vision needs: No Physical Exam Vital Signs: Last Vital Signs Pulse 94 01/02/25 08:58 BP 132/80 01/02/25 08:58 Pulse Ox 96 01/02/25 08:58 Oxygen Delivery Method Room Air 01/02/25 08:58 BMI result Body Mass Index 68.2 Absence of Cushingoid features. Absence of acromegalic features. Neck exam reveals nl size thyroid about 15 gms. No thyroid nodules palpable. No carotid bruits present. Lungs CTA. Heart S1 S2, Reg R/R. No M/R/ G. Skin exam reveals absence of vitiligo or acanthosis nigricans. Abdominal exam reveals Soft NT/ND with NA BS. No organomegaly present. Const Other: Absence of Cushingoid features. Absence of acromegalic features. Neck exam reveals nl size thyroid about 15 gms. No thyroid nodules palpable. Heart S1 S2, Reg R/R. No M/R G. Skin exam reveals absence of vitiligo, mild acanthosis nigricans. lymphedema bilateral right > than left with papular skin changes. Visual exam of foot performed. No ulcerations or open lesions. No inter digit maceration or fissuring. No onychomycosis, no callouses. Sensation intact to monofilament exam. Vibratory sensation is normal with 128 Hz tuning fork. pulses positive Neck Other: . Extrem Other: Visual exam of foot performed. No ulcerations or open lesions. No onchomycosis, no callouses.Pulses 2 + distally Sensation intact to monofilament exam. Vibratory sensation sensed is intact with 128 Hz tuning fork Results Reviewed Results Reviewed: Laboratory Last Values Glucose (Clinic) 219 mg/dL (60-115) H 01/02/25 09:08 Assessment & Plan Assessment & Plan (1) Type 2 diabetes mellitus with morbid obesity: Code(s): E11.69 - Type 2 diabetes mellitus with other specified complication; E66.01 - Morbid (severe) obesity due to excess calories Category: Medical Plan: [age] year old obese diabetic whose care is complicated by anxiety, agoraphobia, fear of needles, depression and low back pain with escalating A1cs over the past several years. Most recent A1c is 8.4% on 11/22/2024. He will not test his sugars with fingerstick as he has severe anxiety with needles nor we will he allow his mother to fingerstick test. Would recommend given his young age and potential risk of complications that this patient may do well on a freestyle Desiree 3+ sensor which will allow us to closely monitor her his progress as we add additional medications and detect any possible lows. He currently has access to a Desiree 3 reader that his mother purchased but did not use. He does not wish to use his phone with the sensor as he believes this will be too complicated. Given that this patient has current A1c places him at 48% increase risk of developing kidney and eye damage due to diabetes, having a freestyle Desiree we will greatly assist in her management with this patient. Patient will be seen in follow up by conservation educator to train in freestyle Desiree 3. His mother we will be placing sensor. He will continue metformin 1000 mg b.i.d.. We will initiate prior authorization for Ozempic 0.25 mg. He has agreed to have his mother inject once weekly. I will see the patient back in telehealth in 4 weeks to discuss his glucose readings. The patient had an opportunity to ask questions regarding treatment plan. The patient expressed understanding and agreement with the above treatment plan. We reviewed the risk of ongoing poorly controlled diabetes. The patient is aware they should contact our office by phone for worsening glucose readings or for any low blood sugars which may warrant a change in diabetes medication. Compliance is encouraged with medications and any followup testing/consults which may have been ordered. (2) Lymphedema: Code(s): I89.0 - Lymphedema, not elsewhere classified Category: Medical Plan: Refer to vascular Orders: Referrals Vascular Surgery Referral I89.0 - Lymphedema, not elsewhere classified Medications: New blood-glucose sensor (FreeStyle Desiree 3 Plus Sensor device) As directed every 15 days 2 ea 11RF Refilled semaglutide (Ozempic) for 4 weeks 0.25 mg (0.368 mL) subcut QWEEK 3 mL 0RF E11.69 - Type 2 diabetes mellitus with other specified complication, E66.01 - Morbid (severe) obesity due to excess calories Patient Instructions: Check your feet daily looking for any signs of infection, drainage, redness, ulceration and seek medical attention if this occurs. Break in shoes gradually and do not wear open-toed shoes or walk stocking footed or barefooted. Coding Level of Care Code New Pt Level 4 (73644) Diagnoses Type 2 diabetes mellitus with morbid obesity E11.69; E66.01 Lymphedema I89.0 Time Spent (min) 45 Comment Time spent reviewing labs/provider notes, face to face, chart doc
[2025-01-02 08:58] VITALS: BP 132/80; PULSE 94; O2SAT 96; BMI 68.2
[2025-01-02 09:14] LABS: Glucose, Whole Blood 219 mg/dL (60-115)
--- OUTSIDE RECORDS SUMMARY | 2025-01-02 09:21 | XMS_ITS | Encounter Summary ---
Author Organization [facility] Address [address] [place] [id number] Phone Care Team Providers Care Kick Plate Installer Name Role Phone Monty De Los Santos MD Primary Care Provider Dane morillo Encounter Details Date Type Department Care Team (Late st Contact Info) Description 03/02/2011 Documentation [facility] [address] [place], [place] [id number] Family Medicine, Physician [address] [place] [address] Social History Tobacco Use Types Packs/Day Years [...] on filedocumented in this encounter Care Teams Kick Plate Installer Relationship Specialty Start Date End Date Monty De Los Santos MD PCP - General 03/04/17 09/09/22 documented as of this encounter
== END 2025-01-02 10:02 | disposition home or self-care (01) ==
LOC: HO.ENCR 08:55
PROVIDERS: Visit Provider Nurse Practitioner Adult Health
DX: E11.69 Type 2 diabetes mellitus with other specified complication (principal); E66.01 Morbid (severe) obesity due to excess calories; I89.0 Lymphedema, not elsewhere classified
CPT/HCPCS: 99204

== ENCOUNTER → 2025-01-02 08:54 | Outpatient (BNVA) | payer OTHER, MEDICAID, SELFPAY | PROVIDERS: Visit Provider Nurse Practitioner Adult Health | DX: E11.69 Type 2 diabetes mellitus with other specified complication (principal); E11.40 Type 2 diabetes mellitus with diabetic neuropathy, unspecified; I89.0 Lymphedema, not elsewhere classified; E66.01 Morbid (severe) obesity due to excess calories; Z68.44 Body mass index [BMI] 60.0-69.9, adult; Z83.3 Family history of diabetes mellitus | CPT/HCPCS: 82947 ==

== ENCOUNTER 2025-01-14 15:53 | Outpatient (AMB) | payer OTHER, MEDICAID, SELFPAY ==
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
--- OUTSIDE RECORDS SUMMARY | 2025-01-14 17:20 | XMS_ITS | Encounter Summary ---
Author Organization [facility] Address [address] [place] [id number] Phone Care Team Providers Care Adjunct Teacher Name Role Phone Monty De Los Santos MD Primary Care Provider Dane morillo Encounter Details Date Type Department Care Team (Late st Contact Info) Description 03/02/2011 Documentation [facility] [address] [place], [place] [phone] Family Medicine, Physician [address] [place] [address] Social History Tobacco Use Types Packs/Day Years [...] on filedocumented in this encounter Care Teams Adjunct Teacher Relationship Specialty Start Date End Date Monty De Los Santos MD PCP - General 03/04/17 09/09/22 documented as of this encounter
== END 2025-01-14 16:10 | disposition home or self-care (01) ==
LOC: HO.HOP 15:53
PROVIDERS: Visit Provider Psychiatry & Neurology Psychiatry
DX: F43.12 Post-traumatic stress disorder, chronic (principal)
CPT/HCPCS: 99214

== ENCOUNTER 2025-01-16 07:33 | Outpatient (AMB) | payer OTHER, MEDICAID, SELFPAY ==
--- OUTSIDE RECORDS SUMMARY | 2025-01-16 07:36 | XMS_ITS | Encounter Summary ---
Author Organization [facility] Address [address] [place] [id number] Phone Care Team Providers Care Casino Operations Supervisor Name Role Phone Monty De Los Santos MD Primary Care Provider Dane morillo Encounter Details Date Type Department Care Team (Late st Contact Info) Description 03/02/2011 Documentation [facility] [address] [place], [place] [phone] Family Medicine, Physician [address] [place] [address] Social History Tobacco Use Types Packs/Day Years [...] on filedocumented in this encounter Care Teams Casino Operations Supervisor Relationship Specialty Start Date End Date Monty De Los Santos MD PCP - General 03/04/17 09/09/22 documented as of this encounter
--- NOTE | 2025-01-16 08:08 | MHC.AMDMED ---
Intake Intake Visit Reasons: T2DM Billboard Mechanic Required: No Accompanied by: Mother Allergies Sulfa (Sulfonamide Antibiotics) (SULFA (SULFONAMIDE ANTIBIOTICS)) Allergy (Unknown, Verified 01/02/25 09:02) RASH sulfamethoxazole (From BACTRIM) Allergy (Unknown, Verified 01/02/25 09:02) RASH trimethoprim (From BACTRIM) Allergy (Unknown, Verified 01/02/25 09:02) RASH PFSH Medical History (Updated 01/02/25 @ 10:01 by Verónica Plascencia NP) Lymphedema Major depression, recurrent, chronic Chronic post-traumatic stress disorder (PTSD) Type 2 diabetes mellitus with morbid obesity Spinal stenosis Spondylolisthesis of lumbar region Anxiety Hypertension Prediabetes Vitamin D deficiency Surgical History No pertinent past surgical history Family History Father Hypertension Heart disease CVA (cerebral vascular accident) Mother Hypertension Diabetes Thyroid nodule Obesity Social History Housing: House Alcohol intake: current Alcohol intake frequency: holidays/special occasions only Patient Tobacco Use Status: Never used Tobacco e-Cigarette/Vaping Use: Never Used Second Hand Smoke Exposure: No service: No Current occupational status: disabled Cognitive needs: Yes (cane) Hearing needs: No Vision needs: No Assessment & Plan Assessment & Plan (1) Type 2 diabetes mellitus with morbid obesity: Code(s): E11.69 - Type 2 diabetes mellitus with other specified complication; E66.01 - Morbid (severe) obesity due to excess calories Plan: Patient at visit to set up an insert Desiree 3+ with smartphone Instructed patient sensors water proof you can shower, or swim do not submerge sensor in water for over 30 minutes Is sensor falls off cannot put back in you need to replace sensor, customer service number given to patient for sensor replacement Sensor placed on the back of right arm Patient left visit with sensor in warmup Reviewed how to interpret trend arrows Discussed lag time between finger stick and sensor data.? Instructed patient the importance of having blood glucometer for backup testing if needed Reviewed delay of CGM from fingersticks Reminded Pt that if symptoms do not match sensor still needs to check fingersticks. Portions of this note were created using voice recognition software, please excuse any words or phrases that may have been misinterpreted. Patient Instructions: Patient instruction: CGM provides information on blood glucose control throughout the day, including hyperglycemia and hypoglycemia. ? Continue to monitor blood glucose as instructed. Follow nutrition guidelines provided. Report any discomfort promptly to health care provider. ?Stay well-hydrated. You can bathe ,shower, swim and exercise while wearing the glucose sensor. Do not submerge glucose sensor in water for more than 30 minutes. Coding Level of Care Code Est Pt Level 1 (72332) Diagnoses Type 2 diabetes mellitus with morbid obesity E11.69; E66.01
== END 2025-01-16 08:13 | disposition home or self-care (01) ==
LOC: HO.ENCR 07:34
PROVIDERS: Visit Provider Registered Nurse Diabetes Educator
DX: E11.69 Type 2 diabetes mellitus with other specified complication (principal); E66.01 Morbid (severe) obesity due to excess calories

== ENCOUNTER → 2025-01-16 07:33 | Outpatient (BNVA) | payer OTHER, MEDICAID, SELFPAY | PROVIDERS: Visit Provider Registered Nurse Diabetes Educator | DX: E11.69 Type 2 diabetes mellitus with other specified complication (principal); E66.01 Morbid (severe) obesity due to excess calories | CPT/HCPCS: 99211 ==

== ENCOUNTER 2025-01-17 09:27 | Outpatient (AMB) | payer OTHER, MEDICAID, SELFPAY ==
--- NOTE | 2025-01-17 09:31 | A.OFFVIS_ITS ---
Intake Visit Reasons: PATIENT SUPPORT ASSISTANT/Endo referral for lymphedema Intake Note: New patient presents for lymphedema. Ongoing for years, some numbness. If he gets nicked or scratched he has a large amount of drainage. Accompanied by: Mother Allergies Sulfa (Sulfonamide Antibiotics) (SULFA (SULFONAMIDE ANTIBIOTICS)) Allergy (Unknown, Verified 01/17/25 09:35) RASH sulfamethoxazole (From BACTRIM) Allergy (Unknown, Verified 01/17/25 09:35) RASH trimethoprim (From BACTRIM) Allergy (Unknown, Verified 01/17/25 09:35) RASH HPI HPI PATIENT SUPPORT ASSISTANT/Endo referral for lymphedema: Details: Matteo, a pleasant 34yo morbidly obese male patient, is presenting today with his mother on a referral from Endo for concerns of bilateral lower extremity swelling/lymphedema. He states he has had this for >3 years. Complaints include pain/discomfort, swelling of lower extremities, cramping, itching, fatigue, and heaviness of the lower extremities. It has been affecting their daily activities including walking, standing, and physical activity. It is noted more so in the right leg. He states that sometimes his cat will scratch his leg (mostly right) and there will be clear liquid that comes out. He denies every having any cellulitis. He is a diabetic on oral medications and just started Ozempic last week. He is a nonsmoker and rarely drinks alcohol. He is unable to find compression socks that fit but does elevate his legs most of the day. Patient denies any previous venous surgery or injections. Patient denies any history of DVT/ PE. Patient denies any history of phlebitis. Trial of compression includes - elevation with little relief They now present for vascular evaluation regarding their varicose veins. [facility] Medical History Lymphedema Major depression, recurrent, chronic Chronic post-traumatic stress disorder (PTSD) Type 2 diabetes mellitus with morbid obesity Spinal stenosis Spondylolisthesis of lumbar region Anxiety Hypertension Prediabetes Vitamin D deficiency Surgical History No pertinent past surgical history Family History Father Hypertension Heart disease CVA (cerebral vascular accident) Mother Hypertension Diabetes Thyroid nodule Obesity Social History Housing: House Alcohol intake: current Alcohol intake frequency: holidays/special occasions only Patient Tobacco Use Status: Never used Tobacco e-Cigarette/Vaping Use: Never Used Second Hand Smoke Exposure: No service: No Current occupational status: disabled Cognitive needs: Yes (cane) Hearing needs: No Vision needs: No Review of Systems Const Reports as per HPI and Denies weakness ENT Reports Normal hearing present and Denies dizziness Card Reports as per HPI, Denies chest pain, Denies chest pain at rest, Denies chest pain with activity, Denies dyspnea and Denies dyspnea on exertion Resp Reports as per HPI, Denies cough, Denies dyspnea and Denies dyspnea on exertion GI Reports as per HPI, Denies abdominal pain, Denies nausea and Denies vomiting Musc Denies numbness Skin/Breast Reports as per HPI, Denies erythema and Denies wounds Neuro Reports Normal hearing present, Denies dizziness, Denies numbness, Denies Sensory deficit (Neuro) and Denies weakness Psych Reports no additional complaints Endo Reports no additional complaints Physical Exam Const General: healthy appearing and no acute distress Orientation/consciousness: patient oriented x3 HEENT Head: Yes normal to inspection Ears: hearing grossly normal bilaterally Mouth: Normal oral and palatal mucosa present Resp Effort & Inspection: normal respiratory effort and able to speak in complete sentences Auscultation: clear to auscultation bilaterally Cardio Jugular venous distension: no JVD Rate: regular rate Rhythm: regular rhythm Heart sounds: S1 normal heart sound present and S2 normal heart sound present Bruits: no abdominal aortic bruits, no carotid bruits, no femoral bruits and no renal bruits Peripheral pulses: Peripheral pulses 2+ throughout GI Inspection: Yes normal to inspection Palpation (GI): No Abdominal aortic bruit present Skin General skin exam: no rashes or lesions noted Wounds: no wounds Hair: normal Neuro General: patient oriented x3 Cranial nerves: Yes Normal hearing present Cognition (Neuro): normal cognition Gait exam (Neuro): Normal gait present Motor exam (neuro): 5/5 motor strength present throughout Sensory Exam: No Sensory deficit (Neuro) Extrem Other: Bilateral lower extremities: +3 pitting edema noted. Hyperkeratosis noted on the right lower extremity. Unable to palpate pulses due to edema. No lymporrhea noted today. Hyperpigmentation noted from mid-calf to ankles. CEAP: C - 4 E - primary A - superficial P - reflux General: Yes normal to inspection, Yes full ROM, Yes capillary refill normal and Yes normal gait Assessment & Plan Assessment & Plan (1) Varicose veins of both lower extremities with inflammation: Code(s): I83.11 - Varicose veins of right lower extremity with inflammation; I83.12 - Varicose veins of left lower extremity with inflammation Category: Medical Plan: Matteo is presenting today on a referral from [facility] for concerns of bilateral lower extremity swelling/lymphedema. He does note that he has had periods of lymphorrhea but is not currently having any episodes of it. He does have hyperpigmentation and hyperkeratosis, particularly in the right lower extremity. We will r/o venous insufficiency and then likely book him with the lymphedema clinic on the follow up visit. I did discuss with him the pathophysiology and tx options of lymphedema. In short, the patient has evidence of venous insufficiency. I have discussed the pathophysiology with the patient. In addition I have provided informational material regarding venous disease to the patient. We have discussed conservative measures including compression, elevation, and exercise. He is unable to find compression socks that will fit his legs. I discussed with him to continue to elevate his legs and participate in light physical activity as often as he can. I have taken the liberty of ordering venous insufficiency testing with the patient. They will follow up with me after testing. The patient had an opportunity to ask questions regarding the treatment plan. All questions were answered. Imaging studies, laboratory studies and physical exam results were discussed and reviewed in detail. No major barriers to understanding were identified. The patient expressed understanding and agreement with the above treatment plan. The patient is aware they should contact our office by phone for worsening of the current condition or the appearance of new symptoms. Thank you for allowing me to participate in the vascular care of this patient. If you have any questions or concerns regarding the treatment for the above condition please do not hesitate to contact me. The office telephone contact is [phone]. This note is constructed using voice recognition software. While every effort has been made to ensure accuracy, electrical engineering technologist errors may have been included. Thank you for allowing me to participate in the care of your patient. Yours sincerely, JERICHO Tompkins Orders: Orders US venous duplex LE BI 1 Week I83.11 - Varicose veins of right lower extremity with inflammation, I83.12 - Varicose veins of left lower extremity with inflammation Coding Level of Care Code New Pt Level 4 (89378) Diagnoses Varicose veins of both lower extremities with inflammation I83.11; I83.12
--- OUTSIDE RECORDS SUMMARY | 2025-01-17 10:29 | XMS_ITS | Encounter Summary ---
Author Organization [facility] Address [address] [place] [phone] Phone Care Team Providers Care Digital Editor Name Role Phone Monty De Los Santos MD Primary Care Provider Dane morillo Encounter Details Date Type Department Care Team (Late st Contact Info) Description 03/02/2011 Documentation [facility] [address] [place], [place] [id number] Family Medicine, Physician [address] [place] [address] Social History Tobacco Use Types Packs/Day Years [...] on filedocumented in this encounter Care Teams Digital Editor Relationship Specialty Start Date End Date Monty De Los Santos MD PCP - General 03/04/17 09/09/22 documented as of this encounter
== END 2025-01-17 09:53 | disposition home or self-care (01) ==
LOC: HO.HVS 09:27
PROVIDERS: Visit Provider Physician Assistant Surgical
DX: I83.11 Varicose veins of right lower extremity with inflammation (principal); I83.12 Varicose veins of left lower extremity with inflammation
CPT/HCPCS: 99204

== ENCOUNTER 2025-01-31 06:59 | Outpatient (AMB) | payer OTHER, MEDICAID, SELFPAY ==
--- NOTE | 2025-01-31 07:53 | A.OFFVIS_ITS ---
Intake Intake Visit Reasons: 60 min Vest Backer Required: No Accompanied by: Mother Allergies Sulfa (Sulfonamide Antibiotics) (SULFA (SULFONAMIDE ANTIBIOTICS)) Allergy (Unknown, Verified 01/17/25 09:35) RASH sulfamethoxazole (From BACTRIM) Allergy (Unknown, Verified 01/17/25 09:35) RASH trimethoprim (From BACTRIM) Allergy (Unknown, Verified 01/17/25 09:35) RASH HPI Comprehensive Diabetes Asmnt Most Recent Diabetes Results: 2 Hemoglobin A1c 5.9 % 05/21/19 Microalb/Creat Ratio 14.4 ug/mg cr 06/12/18 Cholesterol, (<200) 210 mg/dL H 11/10/23 HDL Cholesterol, (>40) 38 mg/dL L 11/10/23 Triglycerides, (<150) 180 mg/dL H 11/10/23 Creatinine, (0.5-1.4) 0.88 mg/dL 11/10/23 BUN, (9-16) 11 mg/dL 11/10/23 Sodium, (135-145) 136 mmol/L 11/10/23 Potassium, (3.3-5.1) 4.4 mmol/L 11/10/23 Chloride, (96-108) 100 mmol/L 11/10/23 Carbon Dioxide, (22-29) 29 mmol/L 11/10/23 Calcium, (8.4-10.2) 9.8 mg/dL 11/10/23 AST, (5-37) 21 U/L 11/10/23 ALT, (0-40) 29 U/L 11/10/23 Total Protein, (6.5-8.0) 7.6 g/dL 11/10/23 Albumin, (3.5-5.0) 4.1 g/dL 11/10/23 [facility] Medical History Lymphedema Major depression, recurrent, chronic Chronic post-traumatic stress disorder (PTSD) Type 2 diabetes mellitus with morbid obesity Spinal stenosis Spondylolisthesis of lumbar region Anxiety Hypertension Prediabetes Vitamin D deficiency Surgical History No pertinent past surgical history Family History Father Hypertension Heart disease CVA (cerebral vascular accident) Mother Hypertension Diabetes Thyroid nodule Obesity Social History Housing: House Alcohol intake: current Alcohol intake frequency: holidays/special occasions only Patient Tobacco Use Status: Never used Tobacco e-Cigarette/Vaping Use: Never Used Second Hand Smoke Exposure: No service: No Current occupational status: disabled Cognitive needs: Yes (cane) Hearing needs: No Vision needs: No Assessment & Plan Assessment & Plan (1) Type 2 diabetes mellitus with morbid obesity: Code(s): E11.69 - Type 2 diabetes mellitus with other specified complication; E66.01 - Morbid (severe) obesity due to excess calories Plan: Diabetes self-management education and support participation record Assessment/scale: 1= needs instructed? 2= needs review? 3= comprehend keep point? 4= demonstrates understanding/ competent? NC= Not Covered Topics Learning Objective: Initial visit Initial or post srvc Initial or post srvc Initial or post srvc Initial or post srvc Initial or post srvc Post srvc Comments Pre Edu-assessment/plan Outcome or reassess O utcome or reassess Outcome or reassess Outcome or reassess Outcome or reassess Outcome or reassess Diabetes pathophysiology 1 Healthy eating 1 Being active 1 Taking medication 1 Monitoring glucose 1 Acute complication 1 Chronic complicated 1 Lifestyle and healthy coping 1 Diabetes distress in support 1 ?Diabetes pathophysiology: ?Defined diabetes med identify own type of diabetes; list 3 options for treating diabetes Healthy eating: ?Described effect of type, amount and ?timing of food on blood glucose; list 3 methods for planning meal Being active: ?State effect of exercise on blood glucose level Taking medication: ?State effect of diabetes medications on diabetes; name diabetes medications taking, action and side effects Monitoring glucose: ?Identify recommended blood glucose targets and personal target Acute complication: ?List symptoms and treatment of hyper and hypoglycemia, DKA, sick day guidelines and guidelines for severe weather or situations of crisis and diabetes supply manage Chronic complication: ?To find the relationship of blood glucose levels to long- term complications of diabetes in screening and preventative measures Lifestyle and healthy coping: ?Described lifestyle and healthy coping strategies to rule out diabetes self-management Diabetes to stress and support: ?Recognize Diabetes to stress and be able to identified support options Learning objectives: The patient was provided with verbal and written education on the following topics as outlined below. The patient met all learning objectives and was able to verbalize understanding and provide teach back of education topics discussed . The patient was provided with the opportunity to ask questions and all questions were answered. Patient Assessment Assess patient education level/literacy/barriers, patient's last A1c on 11/25/2024 8.4% Patient reports he frequently feels extreme anxiety and agitation. Patient finds it difficult to leave his house, spends most of the day sleeping or playing video games. Patient is being treated for PTSD, anxiety and depression through medication and behavioral health counselor. Patient denies symptoms of nausea, or GI disturbance from Ozempic 0.25 mg Patient on 1000 mg metformin b.i.d. What is Diabetes? Pathophysiology How the body produces and uses insulin Identify type of DM Risk factors Signs of Diabetes Brief overview of Diabetes Management Monitoring blood sugar Following a meal plan Regular exercise Maintaining a healthy weight Taking medication as needed Members of the care team (PCP, RN, MA, RD, CDE, clinical liaison) Blood glucose monitoring When/how often to test Target blood sugar ranges Patient uses [employer] +sensors with cell phone bryan Introduction to Nutrition Importance of healthy diet in managing DM Diet is personalized to individual preference Review patient?s regular diet/food preferences Who prepares meals/does food shopping/ Dining out?/ Barriers? How diet effects glucose Eating 3 balanced meals a day with small, healthy snacks between meals Review food groups Carbohydrates: What is a carbohydrate/Which food/food groups are considered carbohydrates Effect of carbohydrates on blood glucose Portion sizes Reading food labels Basic carb counting (if applicable per nursing assessment) Plate method Meal planning Recommendations: Follow plate method, consistent carbs and read nutritional labels. Smart Goal: Patient will reduce portions of carbohydrate snacks between now and next visit Educational Materials: The patient was provided with the following written educational materials: Planning Healthy Meals Handout Patient Response to instructions: Comprehension of Instructions: Fair Readiness to make changes: Contemplation How confident they feel about making changes: Positive Portions of this note were created using voice recognition software, please excuse any words or phrases that may have been misinterpreted. Patient Instructions: Include regular daily activity. ADA recommends 30 minutes of exercise 5 days a week. Weight loss talk to PCP or [employer] Van Truck [employer] before starting new plan. Test blood sugar as directed; Fasting and 2hpp largest meal. Watch trends in results. Utilize results and to assess how food, physical activity and medications affect blood sugar results. Bring glucometer or CGM to next visit. Be knowledgeable about diabetes medication, its action, side effects, efficacy, toxicity, prescribed dosage, appropriate timing and frequency of administration, effect of missed and delayed doses and instructions for storage, travel and safety. Problem solving techniques to monitor hypo/hyperglycemia episodes and treatments. Reduce risk reduction behaviors, smoking cessation, regular eye, foot and dental examinations. Coding Level of Care Code Est Pt Level 1 (74339) Diagnoses Type 2 diabetes mellitus with morbid obesity E11.69; E66.01
== END 2025-01-31 07:58 | disposition home or self-care (01) ==
LOC: HO.ENCR 06:59
PROVIDERS: Visit Provider Registered Nurse Diabetes Educator
DX: E11.69 Type 2 diabetes mellitus with other specified complication (principal); E66.01 Morbid (severe) obesity due to excess calories

== ENCOUNTER → 2025-01-31 06:59 | Outpatient (BNVA) | payer OTHER, MEDICAID, SELFPAY | PROVIDERS: Visit Provider Registered Nurse Diabetes Educator | DX: E11.69 Type 2 diabetes mellitus with other specified complication (principal); E66.01 Morbid (severe) obesity due to excess calories | CPT/HCPCS: 99211 ==

== ENCOUNTER 2025-01-31 08:01 | Outpatient (REF) | payer OTHER, MEDICAID, SELFPAY ==
--- OUTSIDE RECORDS SUMMARY | 2025-01-31 08:05 | XMS_ITS | Encounter Summary ---
Author Organization [facility] Address [address] [place] [phone] Phone Care Team Providers Care Guest Room Attendant Name Role Phone Monty De Los Santos MD Primary Care Provider Dane morillo Encounter Details Date Type Department Care Team (Late st Contact Info) Description 03/02/2011 Documentation [facility] [address] [place], [place] [phone] Family Medicine, Physician [address] [place] [address] Social History Tobacco Use Types Packs/Day Years [...] on filedocumented in this encounter Care Teams Guest Room Attendant Relationship Specialty Start Date End Date Monty De Los Santos MD PCP - General 03/04/17 09/09/22 documented as of this encounter
--- OUTSIDE RECORDS SUMMARY | 2025-01-31 08:05 | XMS_ITS | Clinical Summary ---
Author Organization [address] [facility] Address [address] [place] [address] Phone Care Team Providers Care Mammography Technologist Name Role Phone Emily Jurado Primary Care Provider [phone] Social History Tobacco Use Types Packs/Day Years Used Date Smoking Tobacco: Never Assessed Sex and Gender Information Value Date Recorded Sex Assigned at Not on file Legal Sex Male 10:45 AM EDT Gender Identity Not on file Sexual Orientation Not on file Plan of Treatment Upcoming Encounters Date Type Department Care Team ([facility] Contact Info) Description 02/04/2025 9:15 AM EDT Consult Orthopedic Surgery [place] [id number] [phone] Eugene Jones, DPM [address] [address] Health Maintenance Due Date Last Done Comments Diabetes: Annual GFR (Glomer ular Filtration Rate) 1989 Diabetes: Annual Foot Exam 1999 Diabetes: Annual Retina Eye Exam 1999 DTaP,Tdap,and Td Vaccines (1 - Tdap) 2008 Hepatitis B Vaccines (1 of 3 - 19+ 3-dose series) 2008 Pneumococcal Vaccine: Pediat rics (0 to 5 Years) and At-Risk Patients (6 to 49 Years) (1 of 2 - PCV) 2008 COVID-19 Vaccine ( - 2023-2 5 season) 2024 Cholesterol Screening (Lipid Panel) 12/01/2024 Depression Screening 12/01/2024 Diabetes: Annual Urine Albumin-Creatinine Ratio (uACR) 12/01/2024 Diabetes: Blood Sugar Contro l Test (HGBA1C) 12/01/2024 HIV Screening 12/01/2024 Hepatitis C Screening 12/01/2024 Social Influencers of Health Screening 12/01/2024 Influenza Vaccine (#1) 2025 HIB Vaccines Aged Out No longer eligi ble based on patient's age to complete this topic HPV Vaccines Aged Out No longer eligi ble based on patient's age to complete this topic Hepatitis A Vaccines Aged Out No long er eligible based on patient's age to complete this topic IPV Vaccines Aged Out No longer eligi ble based on patient's age to complete this topic MMR Vaccines Aged Out No longer eligi ble based on patient's age to complete this topic Meningococcal ACWY Vaccine Aged Out N o longer eligible based on patient's age to complete this topic Meningococcal B Vaccine Aged Out No l onger eligible based on patient's age to complete this topic RSV Immunization Patients Un ila 20 months Aged Out No longer eligible b ased on patient's age to complete this topic Varicella Vaccines Aged Out No longer eligible based on patient's age to complete this topic Insurance [place]ICA[place] - [place] [facility] [address] [place] [address] Care Teams Mammography Technologist Relationship Specialty Start Date End Date Emily Jurado PA [address] [facility], [address] [place] [address] PCP - General 12/01/24
[2025-01-31 10:51] LABS: MANUAL DIFF FLAG NO
[2025-01-31 10:56] LABS: Hematocrit 46.1 % (42.0-52.0); Hemoglobin 16.0 g/dl (14.0-18.0); Imm Gran Abs Auto 0.04 X10*3/uL (0.00-0.03); Imm Gran Pct Auto 0.4 % (0.0-0.4); Lymphocytes Absolute Auto 3.4 X10*3/uL (1.2-4.9); Mean Corpuscular HGB Conc 34.7 g/dl (31.0-36.0); Mean Corpuscular Hemoglobin 30.6 pg (27.0-33.0); Mean Corpuscular Volume 88.1 fL (80.0-98.0); NRBC Abs Auto 0.000 X10*3/uL (0.0-0.012); NRBC Pct Auto 0.0 /100WBC (0.0-0.2); Platelet Count 367 X10*3/uL (160-400); Red Blood Count 5.23 X10*6/uL (4.60-5.80); White Blood Count 10.9 X10*3/uL (4.8-10.8)
[2025-01-31 11:24] LABS: Alanine Aminotransferase 43 U/L (0-40); Albumin Level 4.3 g/dL (3.5-5.0); Alkaline Phosphatase 81 U/L (39-117); Anion Gap 16 (12-20); Aspartate Amino Transferase 49 U/L (5-37); Blood Urea Nitrogen 9 mg/dL (9-16); Calcium 10.0 mg/dL (8.4-10.2); Carbon Dioxide 28 mmol/L (22-29); Chloride 97 mmol/L (96-108); Cholesterol 137 mg/dL (<200); Estimated Glomerular Filt Rate > 60; HDL Cholesterol 44 mg/dL (>40); Potassium 4.5 mmol/L (3.3-5.1); Sodium 136 mmol/L (135-145); Total Protein 7.4 g/dL (6.5-8.0); Triglycerides 197 mg/dL (<150)
[2025-01-31 11:35] LABS: Free T4 (Free Thyroxine) 1.01 ng/dL (0.71-1.85)
[2025-01-31 11:42] LABS: Folate 4.1 ng/mL (> or = 4.0); Vitamin B12 414 pg/mL (200-900)
== END 2025-01-31 08:02 | disposition home or self-care (01) ==
LOC: HO.10HDL 08:01
DX: Z00.00 Encounter for general adult medical examination without abnormal findings (principal); E78.00 Pure hypercholesterolemia, unspecified
CPT/HCPCS: 36415; 80053; 80061; 82306; 82607; 82746; 84439; 84443; 85025

== ENCOUNTER 2025-02-05 10:50 | Outpatient (AMB) | payer OTHER, MEDICAID, SELFPAY ==
--- NOTE | 2025-02-05 10:02 | MHC.OFFVIS ---
Intake Visit Reasons: / per Verónica Allergies Sulfa (Sulfonamide Antibiotics) (SULFA (SULFONAMIDE ANTIBIOTICS)) Allergy (Unknown, Verified 01/17/25 09:35) RASH sulfamethoxazole (From BACTRIM) Allergy (Unknown, Verified 01/17/25 09:35) RASH trimethoprim (From BACTRIM) Allergy (Unknown, Verified 01/17/25 09:35) RASH HPI Comments Details: This is a 34-year-old male with a past medical history of type 2 diabetes, hyperlipidemia, hypertension, vitamin-D deficiency, lymphedema, depression, anxiety, agoraphobia and PTSD presenting for diabetic management. This is my 1st consult with the patient. Was last seen by my colleague in December. He was initially diagnosed with type 2 diabetes and approximately 2020. Hemoglobin A1c 8.4% on 11/22/2024. He is severely needle phobic and does not use a glucometer. 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 He says that he did not get a notification that they were ready though there is approval for a prior authorization in December. I resubmitted them for the patient today, and he will call the pharmacy to make sure he can get them. Current medication regimen: Ozempic 0.25 mg weekly. He took his 3rd dose of this last week. He denies side effects. Metformin 1000 mg twice daily. Past medications: Mounjaro discontinued due to nausea. Denies hypoglycemia. Denies symptoms of hyperglycemia. Complications: Neuropathy, upcoming appointment with Podiatry. Patient's liver function tests are elevated. He says that he was sick starting at the end of last week with congestion, nausea, vomiting and a cough. He did not test for COVID-19 or seek evaluation. He says that he is feeling better. He had lost his voice last week which is back. He is drinking lots of fluids, and he denies fevers, chills, shortness of breath or chest pain. He plans to monitor his improving symptoms and go to urgent care if he does not get better. ROS: Constitutional: Denies fevers or chills. +fatigue. Eyes: No vision changes, blurry vision, double vision, eye pain Respiratory: No shortness of breath. See HPI. Cardiovascular: No chest pain Neurologic: No headache, dizziness, syncope Endocrine: No cold or heat intolerance. No polyuria or polydipsia. [facility] Medical History Lymphedema Major depression, recurrent, chronic Chronic post-traumatic stress disorder (PTSD) Type 2 diabetes mellitus with morbid obesity Spinal stenosis Spondylolisthesis of lumbar region Anxiety Hypertension Prediabetes Vitamin D deficiency Surgical History No pertinent past surgical history Family History Father Hypertension Heart disease CVA (cerebral vascular accident) Mother Hypertension Diabetes Thyroid nodule Obesity Social History Housing: House Alcohol intake: current Alcohol intake frequency: holidays/special occasions only Patient Tobacco Use Status: Never used Tobacco e-Cigarette/Vaping Use: Never Used Second Hand Smoke Exposure: No service: No Current occupational status: disabled Cognitive needs: Yes (cane) Hearing needs: No Vision needs: No Telehealth Telehealth Telehealth Platform: Telephone Location of provider rendering services: practice address Location of patient: address on file Patient Identification confirmed using: Name, : Yes Telehealth method: voice only Patient verbally consented to treatment: Yes Patient verbally consented to billing insurance company: Yes Patient informed of any privacy concerns related to visit: Yes Minutes spent on Phone/Video with Pt.: 13 Assessment & Plan Assessment & Plan (1) Type 2 diabetes mellitus with morbid obesity: Code(s): E11.69 - Type 2 diabetes mellitus with other specified complication; E66.01 - Morbid (severe) obesity due to excess calories Category: Medical (2) Elevated LFTs: Code(s): R79.89 - Other specified abnormal findings of blood chemistry Category: Medical Plan In summary this is a 34-year-old male with uncontrolled type 2 diabetes currently on Ozempic and metformin. He held his dose of Ozempic this week since he was not feeling well. He plans to resume it this Tuesday. He will take 1 more dose at 0.25 mg and then increase to 0.5 mg weekly. Continue metformin 1000 mg twice daily. The patient and I discussed possible etiologies for elevated liver enzymes. Could this could be related to his recent illness, and he was also taking a leave, DayQuil and NyQuil to treat his symptoms. He will repeat this in 6 weeks. Check hepatitis a B and C serology. If enzymes remain elevated order liver ultrasound with elastography. Follow up in 6 weeks for type 2 diabetes. Orders: Orders Alanine Aminotransferase 6 Weeks R7. - Other specified abnormal findings of blood chemistry Hepatitis A IgM 6 Weeks R7. - Other specified abnormal findings of blood chemistry Aspartate Amino Transferase 6 Weeks R7. - Other specified abnormal findings of blood chemistry Hepatitis A,B,C Profile 6 Weeks . - Other specified abnormal findings of blood chemistry Medications: Refilled blood-glucose sensor (FreeStyle Desiree 3 Plus Sensor device) As directed every 15 days 2 ea 11RF Coding Level of Care Code Est Pt Level 4 (76954) Diagnoses Type 2 diabetes mellitus with morbid obesity E11.69; E66.01 Elevated LFTs R7.
--- OUTSIDE RECORDS SUMMARY | 2025-02-05 12:11 | XMS_ITS | Encounter Summary ---
Author Organization [facility] Address [address] [place] [phone] Phone Care Team Providers Care Rn Informatics Name Role Phone Monty De Los Santos MD Primary Care Provider Dane morillo Encounter Details Date Type Department Care Team (Late st Contact Info) Description 03/02/2011 Documentation [facility] [address] [place], [place] [id number] Family Medicine, Physician [address] [place] [address] Social History Tobacco Use Types Packs/Day Years [...] on filedocumented in this encounter Care Teams Rn Informatics Relationship Specialty Start Date End Date Monty De Los Santos MD PCP - General 03/04/17 09/09/22 documented as of this encounter
--- OUTSIDE RECORDS SUMMARY | 2025-02-05 12:11 | XMS_ITS | Clinical Summary ---
Author Organization [facility] Address [address] [place] [address] Phone Care Team Providers Care Seed Mill Superintendent Name Role Phone Emily Jurado Primary Care Provider [phone] Social History Tobacco Use Types Packs/Day Years Used Date Smoking Tobacco: Never Assessed Sex and Gender Information Value Date Recorded Sex Assigned at Not on file Legal Sex Male 10:45 AM EDT Gender Identity Not on file Sexual Orientation Not on file Plan of Treatment Upcoming Encounters Date Type Department Care Team ([facility] Contact Info) Description 04/24/2025 9:00 AM EDT Consult Orthopedic Surgery - [place] [id number] [phone] Eugene Jones, DPM [address] [address] Health Maintenance Due Date Last Done Comments [...] complete this topic Insurance MEDICAID - [facility] [address] [place] [address] Care Teams Seed Mill Superintendent Relationship Specialty Start Date End Date Emily Jurado PA [address] [facility], [address] [place] [address] PCP - General 12/01/24
== END 2025-02-05 10:51 | disposition home or self-care (01) ==
LOC: HO.ENCR 10:50
PROVIDERS: Visit Provider Physician Assistant Medical
DX: E11.69 Type 2 diabetes mellitus with other specified complication (principal); E66.01 Morbid (severe) obesity due to excess calories; R79.89 Other specified abnormal findings of blood chemistry

== ENCOUNTER 2025-02-22 08:52 | Outpatient (AMB) | payer OTHER, MEDICAID, SELFPAY ==
--- NOTE | 2025-02-22 08:58 | MHC.PC.OV ---
Vital Signs 02/22/25 09:00 Height 6 ft Weight 520 lb 11.709 oz BMI 70.6 BP 138/78 Blood Pressure Location Lt brachial Position Sitting Pulse 86 Pulse Source Pulse Oximeter Temp 97.6 F Temp Source Temporal Artery Scan Pulse Oximetry (%) 95 Oxygen Delivery Method Room Air Intake Visit Reasons: f/u DM and HLD Publishing Manager Required: No Accompanied by: Self / Same As Patient Allergies Sulfa (Sulfonamide Antibiotics) (SULFA (SULFONAMIDE ANTIBIOTICS)) Allergy (Unknown, Verified 02/22/25 09:15) RASH sulfamethoxazole (From BACTRIM) Allergy (Unknown, Verified 02/22/25 09:15) RASH trimethoprim (From BACTRIM) Allergy (Unknown, Verified 02/22/25 09:15) RASH Medication List - Last Reconciled 02/22/25 by Emily Jurado PA-C atorvastatin 10 mg PO DAILY blood sugar diagnostic (FreeStyle Lite Strips) As directed tests 2 X/day blood-glucose meter (FreeStyle Lite Meter kit) As directed 2 X/day blood-glucose sensor (FreeStyle Desiree 3 Plus Sensor device) As directed every 15 days buspirone 15 mg PO TID cholecalciferol (vitamin D3) 50 mcg PO DAILY 90 days clonazepam 0.5 mg PO TID clonidine HCl 0.1 mg PO BID 90 days duloxetine 60 mg PO BID 90 days gabapentin 300 mg PO TID lancets (FreeStyle Lancets) As directed tests 2 X/day lisinopril 10 mg PO DAILY lorazepam 1 mg PO DAILY PRN metformin 1,000 mg PO BID oxcarbazepine 300 mg PO BID Ozempic (semaglutide) 0.5 mg (0.736 mL) subcut QWEEK 4 weeks NS pen needle, diabetic (BD Ultra-Fine [place] Pen Needle) 1 ea subcut DIRECTED 90 days propranolol 20 mg (2 x 10 mg) PO TID 30 days risperidone 0.5 mg PO BID triamcinolone acetonide 0.5% 1 appl topical TID Tobacco use date assessed: 02/22/25 Dental Screening Dental Screen Date: 02/22/25 Did you have a dental visit in the last 12 months?: No Did you have a dental problem in the last 6 months where you did not have access to dental care?: No Was dental information given to patient?: No HPI f/u DM and HLD HPI Details 34-year-old male with past medical history of morbid obesity, vitamin-D deficiency, hypertension, depression, anxiety, PTSD and hyperlipidemia last seen 11/2024 coming in for follow up. In review of the notes, patient was seen by endocrinology 01/2025 continued on metformin and Ozempic and follow up in 6 weeks. Seen by vascular surgery 12/2024 plan for testing an appointment to follow up.?Saw outpatient psych 12/2024 continue on current medication not a candidate for weight loss surgery. Presenting with symptoms of a sinus infection and concerns regarding a toe injury. The patient reports sinus pressure, congestion, and coughing up phlegm for two weeks, with grayish phlegm occurring intermittently. The patient denies fever and has been using NyQuil for symptom relief. Diabetes Mellitus Managed with Ozempic and metformin, the patient's A1c is 8.4, with recent weight loss of 9 pounds. The patient reports pain and discoloration after stubbing the toe, with concern for a fracture. [facility] Medical History Elevated LFTs Lymphedema Major depression, recurrent, chronic Chronic post-traumatic stress disorder (PTSD) Type 2 diabetes mellitus with morbid obesity Spinal stenosis Spondylolisthesis of lumbar region Anxiety Hypertension Prediabetes Vitamin D deficiency Surgical History No pertinent past surgical history Family History Father Hypertension Heart disease CVA (cerebral vascular accident) Mother Hypertension Diabetes Thyroid nodule Obesity Social History Housing: House Alcohol intake: current Alcohol intake frequency: holidays/special occasions only Patient Tobacco Use Status: Never used Tobacco e-Cigarette/Vaping Use: Never Used Second Hand Smoke Exposure: No service: No Current occupational status: disabled Cognitive needs: Yes (cane) Hearing needs: No Vision needs: No Questionnaire Thrive Questionnaire Date Thrive assessed: 11/16/24 I am a: Patient What is your living situation today?: I choose not to answer this question Within the past 12 months, did the food you bought not last and you didn't have the money to get more?: I choose not to answer this question Within the past 12 months, did you worry whether your food would run out before you got money to buy more?: I choose not to answer this question Do you have trouble paying for medicines?: I choose not to answer this question Do you have trouble getting transportation to medical appointments?: I choose not to answer this question Do you have trouble paying your heating and electricity bill?: I choose not to answer this question Do you have trouble taking care of your child, family member or friend?: I choose not to answer this question Do you have trouble with day-to-day activities such as bathing, preparing meals, shopping, managing finances, etc.?: I choose not to answer this question Are you currently unemployed and looking for a job?: I choose not to answer this question Are you interested in more education?: I choose not to answer this question Please select the resources that you would like help with: None Currently or been in a relationship where the following occur: I choose not to answer THRIVE Score: 0 CARLOS-7 AMB Questionnaire CARLOS-7 Date CARLOS - 7 assessed: 11/22/24 Source: Developed by Drs. Kyle Chiang, Padmaja Shen, Maximus Cyr and colleagues, with an educational pastor from [employer]. Review of Systems Const Denies body aches, Denies chills, Denies fever(s), Denies headache(s) and Denies poor appetite Eyes Reports no additional complaints ENT Denies dysphagia, Denies dizziness, Denies headache(s) and Denies odynophagia Card Denies chest pain, Denies syncope, Denies edema, Denies irregular heart rhythm, Denies lightheadedness and Denies dyspnea Resp Denies cough and Denies dyspnea GI Denies abdominal pain, Denies constipation, Denies dysphagia, Denies diarrhea, Denies nausea, Denies odynophagia and Denies vomiting Reports no additional complaints Musc Reports no additional complaints and Denies abnormal gait Skin/Breast Reports system reviewed and no additional complaints, except as documented Neuro Denies abnormal gait, Denies dizziness, Denies syncope and Denies headache(s) Psych Reports no additional complaints Physical exam (Primary Care) Vital Signs: Last Vital Signs Temp 97.6 F 02/22/25 09:00 Pulse 86 02/22/25 09:00 BP 138/78 02/22/25 09:00 Pulse Ox 95 02/22/25 09:00 Oxygen Delivery Method Room Air 02/22/25 09:00 BMI result Body Mass Index 70.6 Tobacco/Smoking Status: Tobacco use Status Tobacco use date assessed 02/22/25 02/22/25 09:07 Patient Tobacco Use Status Never used Tobacco 02/22/25 09:07 e-Cigarette/Vaping Use Never Used 02/22/25 09:07 Thrive Assessment: Date of Thrive Assessment Date Thrive assessed 11/16/24 02/22/25 09:07 Currently or been in a relationship where the following occur: I choose not to answer Const General: cooperative, healthy appearing, comfortable and no acute distress Orientation/consciousness: patient oriented x3 HENMT Head: Yes normocephalic Ears: hearing grossly normal bilaterally General nose exam: Normal external nose present Eyes General: appearance normal, both eyes and all related structures Conjunctivae: conjunctivae normal Neck Neck: Yes full ROM and Yes no lymphadenopathy Resp Effort & Inspection: normal respiratory effort Auscultation: clear to auscultation bilaterally, no crackles, no rales, no rhonchi and no wheezes Cardio Rate: regular rate Rhythm: regular rhythm Skin General skin exam: no rashes or lesions noted Neuro General: patient oriented x3 Gait exam (Neuro): Normal gait present Extrem Other: right pinky toe tenderness to palpation without bruising. Intact strength, sensation and pulses in bilateral lower extremities General: Yes normal to inspection, Yes full ROM and No edema Psych Affect: normal affect Attitude: cooperative Insight: Good insight present (Psych) Judgement: Good judgement present (Psych) Coding Level of Care Code Est Pt Level 4 (45940) Diagnoses Type 2 diabetes mellitus with morbid obesity E11.69; E66.01 Mixed hyperlipidemia E78.2 Hyperlipidemia type: mixed hyperlipidemia Morbid (severe) obesity due to excess calories E66.01 Major depression, recurrent, chronic F33.9 Sinusitis J32.9 Toe pain, right M79.674 Assessment & Plan Assessment & Plan (1) Type 2 diabetes mellitus with morbid obesity: Code(s): E11.69 - Type 2 diabetes mellitus with other specified complication; E66.01 - Morbid (severe) obesity due to excess calories Category: Medical Plan: Decrease the amount of carbohydrates such as pasta, bread, rice, and potatoes and limit the amount of sweets. Although fruits are generally healthy they should be eaten in moderation as they are still high in sugar. Hemoglobin A1c goal of less than 7%. Currently following with [facility] endocrinology on Ozempic 0.5 mg and metformin 1000 mg b.i.d.A1c in the clinic today 8.4% he will continue to follow with endocrinology. (2) Hyperlipidemia: Code(s): E78.5 - Hyperlipidemia, unspecified Category: Medical Qualifiers: Hyperlipidemia type: mixed hyperlipidemia Qualified Code(s): E78.2 - Mixed hyperlipidemia Plan: Avoid foods that are high in cholesterol such as red meat, fried foods, eggs and baked goods. Triglyceride goal of less than 150 and LDL goal of less than 100. Continue on atorvastatin 10. Last LDL within normal limits. (3) Morbid (severe) obesity due to excess calories: Code(s): E66.01 - Morbid (severe) obesity due to excess calories Category: Medical Plan: Healthy diet and regular exercise is encouraged. 9 lb weight loss since last visit. (4) Major depression, recurrent, chronic: Code(s): F33.9 - Major depressive disorder, recurrent, unspecified Category: Medical Plan: Patient is currently following with Psychiatry on oxcarbazepine, lorazepam, duloxetine, clonazepam and BuSpar. (5) Sinusitis: Code(s): J32.9 - Chronic sinusitis, unspecified Category: Medical Plan: Patient has symptoms concerning for acute bacterial sinusitis. He reports sinus pressure and pain, nasal discharge and headache which has been persistent for the last 2 weeks. Plan to treat with Augmentin twice daily for 7 days advised patient to follow up if symptoms do not resolve. Low suspicion for pneumonia as lungs are clear on exam and only mild intermittent cough. (6) Toe pain, right: Comment: R pinky toe Code(s): M79.674 - Pain in right toe(s) Category: Medical Plan: Patient complaining of right pinky toe pain and tenderness on exam today. Plan to obtain x-ray for further evaluation Plan The patient will be treated with Augmentin for the sinusitis, with instructions to monitor symptoms and report any worsening of the cough. An x-ray is recommended for the right toe to assess for possible fracture due to persistent pain and discoloration. The patient is advised to continue follow-up with endocrinology for diabetes management, given the current A1c level of 8.4. This note was constructed using voice recognition software. While every effort has been made to ensure accuracy and ammunition supervisor, still areas may have been included sometimes these areas may affect the content or meeting of the given symptoms. Total time spent caring for the patient today was 20 minutes. This includes time spent before the visit reviewing the chart, time spent during the visit, and time spent after the visit and documentation. Patient was informed and verbally consented to the use of an ambient scribe for clinic note documentation during this visit. Orders: Orders AMB Hemoglobin A1c Today E11.69 - Type 2 diabetes mellitus with other specified complication, E66.01 - Morbid (severe) obesity due to excess calories XR foot RT 2V Today M79.674 - Pain in right toe(s) Medications: New amoxicillin-pot clavulanate 875-125 mg 1 tab PO BID 14 tabs 0RF
[2025-02-22 09:00] VITALS: BP 138/78; PULSE 86; TEMP 36.4; O2SAT 95; BMI 70.6
--- OUTSIDE RECORDS SUMMARY | 2025-02-22 09:05 | XMS_ITS | Clinical Summary ---
Author Organization [facility] Address [address] [place] [address] Phone Care Team Providers Care Appraiser Name Role Phone Emily Jurado Primary Care Provider [phone] Social History Tobacco Use Types Packs/Day Years Used Date Smoking Tobacco: Never Assessed Sex and Gender Information Value Date Recorded Sex Assigned at Not on file Legal Sex Male 10:45 AM EDT Gender Identity Not on file Sexual Orientation Not on file Plan of Treatment Upcoming Encounters Date Type Department Care Team ([facility] Contact Info) Description 04/24/2025 9:00 AM EDT Consult Orthopedic Surgery - [place] [id number] [phone] Eugene Jones, DPM [address] [address] Health Maintenance Due Date Last Done Comments [...] Vaccine ( - 2023-2 5 season) 2024 Depression Screening 07/25/2024 Cholesterol Screening (Lipid Panel) 12/01/2024 Diabetes: Annual Urine Albumin-Creatinine Ratio (uACR) [...] complete this topic Insurance MEDICAID - [place] [facility] [address] [place] [address] Care Teams Appraiser Relationship Specialty Start Date End Date Emily Jurado PA [address] [facility], [address] [place] [address] PCP - General 12/01/24
--- OUTSIDE RECORDS SUMMARY | 2025-02-22 09:05 | XMS_ITS | Encounter Summary ---
Author Organization [facility] Address [address] [place] [address] Phone Care Team Providers Care Computer Information Systems Professor Name Role Phone Monty De Los Santos MD Primary Care Provider Dane morillo Encounter Details Date Type Department Care Team (Late st Contact Info) Description 03/02/2011 Documentation [facility] [address] [place], [place] [phone] Family Medicine, Physician [address] [place] [address] Social History Tobacco Use Types Packs/Day Years [...] on filedocumented in this encounter Care Teams Computer Information Systems Professor Relationship Specialty Start Date End Date Monty De Los Santos MD PCP - General 03/04/17 09/09/22 documented as of this encounter
== END 2025-02-22 09:38 | disposition home or self-care (01) ==
LOC: HO.HMCH 08:52
DX: E11.69 Type 2 diabetes mellitus with other specified complication (principal); E66.01 Morbid (severe) obesity due to excess calories; Z68.45 Body mass index [BMI] 70 or greater, adult; E78.2 Mixed hyperlipidemia; F33.9 Major depressive disorder, recurrent, unspecified; J32.9 Chronic sinusitis, unspecified; M79.674 Pain in right toe(s)

== ENCOUNTER 2025-03-06 10:16 | Outpatient (AMB) | payer OTHER, MEDICAID, SELFPAY ==
[2025-03-06 10:23] VITALS: BP 114/66; PULSE 97; TEMP 36.6; O2SAT 96; BMI 70.7
--- NOTE | 2025-03-06 10:23 | AM.OFFWIN_ITS ---
Intake Vital Signs 03/06/25 10:23 Height 6 ft Weight 521 lb BMI 70.7 BP 114/66 Blood Pressure Location Lt brachial Position Sitting Pulse 97 Pulse Source Pulse Oximeter Temp 97.8 F Temp Source Oral Pulse Oximetry (%) 96 Oxygen Delivery Method Room Air Intake Visit Reasons: EP Foreskin inflammed, hurts to urinate Intake Note: presents with inflammation to loose skin on penis and burning with peeing. states he was recently on abx for sinus issues Patient Tobacco Use Status: Never used Tobacco Allergies Sulfa (Sulfonamide Antibiotics) (SULFA (SULFONAMIDE ANTIBIOTICS)) Allergy (Unknown, Verified 03/06/25 10:26) RASH sulfamethoxazole (From BACTRIM) Allergy (Unknown, Verified 03/06/25 10:26) RASH trimethoprim (From BACTRIM) Allergy (Unknown, Verified 03/06/25 10:26) RASH Do you need a note to return to daycare/school/sports/work: No HPI HPI Comments History of Present Illness Details History - The patient is a 34-year-old male pres enting with foreskin pain. - The patient noticed inflammation and r edness of the foreskin on the sixth day of antibiotic treatment for a sinus infection. - Symptoms include pain during retractio n of the foreskin and pain with urination, particularly at the end of urination. - There is no abnormal discharge or bloo d in his urine reported. - The patient has no fever and denies an y sexual activity that could lead to a sexually transmitted infection. - The patient has a history of diabetes mellitus and was recently on am oxicillin. Physical Exam General: Cooperative, healthy appearing, comfortable, no acute distress and well developed Orientation: Patient oriented x3 Limitations: No limitations Head: Normal to inspection Ears: Hearing grossly normal bilaterally Nose: Normal External nose present Face and sinus: Normal facial exam Mouth: normal, moist oral mucosa Eyes: Appearance normal, both eyes and all related structures Neck: Normal visual inspection and Yes full ROM Respiratory: Normal respiratory effort and able to speak in complete sentences. Skin: no rashes or lesions noted Neuro: Patient oriented x3 Extremities: moving all extremities normally [facility] Medical History Elevated LFTs Lymphedema Major depression, recurrent, chronic Chronic post-traumatic stress disorder (PTSD) Type 2 diabetes mellitus with morbid obesity Spinal stenosis Spondylolisthesis of lumbar region Anxiety Hypertension Prediabetes Vitamin D deficiency Surgical History No pertinent past surgical history Family History Father Hypertension Heart disease CVA (cerebral vascular accident) Mother Hypertension Diabetes Thyroid nodule Obesity Social History Housing: House Alcohol intake: current Alcohol intake frequency: holidays/special occasions only Patient Tobacco Use Status: Never used Tobacco e-Cigarette/Vaping Use: Never Used Second Hand Smoke Exposure: No service: No Current occupational status: disabled Cognitive needs: Yes (cane) Hearing needs: No Vision needs: No Review of Systems Const All systems reviewed & are unremarkable except as noted in HPI and below Physical Exam Vital Signs: Last Vital Signs Temp 97.8 F 03/06/25 10:23 Pulse 97 03/06/25 10:23 BP 114/66 03/06/25 10:23 Pulse Ox 96 03/06/25 10:23 Oxygen Delivery Method Room Air 03/06/25 10:23 BMI result Body Mass Index 70.7 Assessment & Plan Assessment & Plan (1) Balanitis: Code(s): N48.1 - Balanitis Plan: Plan Patient was informed and verbally consented to the use of an ambient scribe for clinic note documentation during this visit - Prescribed fluconazole oral tablet to be taken immediately and another dose in three days if symptoms persist. - Prescribed clotrimazole cream to be applied twice daily for up to 2 weeks, although shorter duration is expected. - Advised to monitor symptoms and contact the clinic if there is no improvement. - Pt not sexually active and never has been so no STI testing indicated - If doesn't resolve, can consider metronidazole however no discharge so not indicated at this time. Medications: New fluconazole may repeat second dose 72 hrs after first dose if symptoms persist 150 mg PO Q3D 2 tabs 0RF clotrimazole 1% 1 appl topical bid 45 grams 1RF 2 weeks Coding Level of Care Code Est Pt Level 3 (63662) Diagnoses Balanitis N48.1
--- OUTSIDE RECORDS SUMMARY | 2025-03-06 10:56 | XMS_ITS | Clinical Summary ---
Author Organization 175 [facility] Address [address] [place] [address] Phone Care Team Providers Care Laundry Aid Name Role Phone Emily Jurado Primary Care Provider [phone] Social History Tobacco Use Types Packs/Day Years Used Date Smoking Tobacco: Never Assessed Sex and Gender Information Value Date Recorded Sex Assigned at Not on file Legal Sex Male 10:45 AM EDT Gender Identity Not on file Sexual Orientation Not on file Plan of Treatment Upcoming Encounters Date Type Department Care Team ([facility] Contact Info) Description 04/24/2025 9:00 AM EDT Consult Orthopedic Surgery - [place] [address] [phone] Eugene Jones, DPM [address] [address] Health Maintenance Due Date Last Done Comments [...] complete this topic Insurance [place]ICAID - [place] [facility] [address] [place] [address] Care Teams Laundry Aid Relationship Specialty Start Date End Date Emily Jurado PA [address] [facility], [address] [place] [address] PCP - General 12/01/24
--- OUTSIDE RECORDS SUMMARY | 2025-03-06 10:56 | XMS_ITS | Encounter Summary ---
Author Organization [facility] Address [address] [place] [address] Phone Care Team Providers Care Grading Supervisor Name Role Phone Monty De Los Santos MD Primary Care Provider Dane morillo Encounter Details Date Type Department Care Team (Late st Contact Info) Description 03/02/2011 Documentation [facility] [address] [place], [place] [phone] Family Medicine, Physician [address] [place] [address] Social History Tobacco Use Types Packs/Day Years [...] on filedocumented in this encounter Care Teams Grading Supervisor Relationship Specialty Start Date End Date Monty De Los Santos MD PCP - General 03/04/17 09/09/22 documented as of this encounter
== END 2025-03-06 10:57 | disposition home or self-care (01) ==
PROVIDERS: Visit Provider Physician Assistant
DX: N48.1 Balanitis (principal)

== ENCOUNTER 2025-03-09 19:03 | Emergency (ER) | payer OTHER, MEDICAID, SELFPAY ==
--- NOTE | ~2025-03-09 | XR_ITS ---
CLINICAL HISTORY: cough, SOB 2 view chest x-ray Comparison: None provided Findings: The lungs are clear. Normal size heart. No acute fracture. IMPRESSION: 1. No acute findings. This document has been electronically signed by: Parviz Mendez DO on 03/09/2025 21:36:39
--- NOTE | 2025-03-09 19:25 | ED_ITS ---
HPI - URI/Sore Throat General Chief Complaint: Dyspnea Stated Complaint: sob, fever Time Seen by Provider: 03/09/25 21:54 Source: patient Limitations: no limitations History of Present Illness HPI Narrative: 34-year-old male who has a history of morbid obesity, depression, PTSD, diabetes, hypertension and anxiety, presents for evaluation of shortness of breath. Patient states that he had been feeling well up until approximately 1 hour prior to arrival. He was in the process of taking fluconazole for which he is being treated for balanitis. Patient states his symptoms are improving regarding this. Patient states during this time, he had a dry nonproductive cough, felt as though he had nasal congestion and was short of breath. He therefore presented immediately to the emergency department. He denies any fevers chills nausea or vomiting. No sick contacts. He is otherwise feeling well. Currently his symptoms have resolved. He also denies choking on the medication he was taking. Related Data Previous Rx's ?Medication ?Instructions ?Recorded pen needle, diabetic 32 gauge x 1 ea subcut DIRECTE D 90 days 12/16/20 (BD Ultra-Fine Keara Pen #100 ea Needle) blood sugar diagnostic (FreeStyle #50 ea 05/18/22 Lite Strips) blood-glucose meter (FreeStyle #1 ea 05/18/22 Lite Meter kit) lancets 28 gauge (FreeStyle #50 ea 05/18/22 Lancets) cholecalciferol (vitamin D3) 50 50 mcg PO DAILY 90 day s #90 caps 11/30/23 mcg (2,000 unit) capsule triamcinolone acetonide 0.5 % 1 appl topical TID #15 g keith 11/22/24 topical cream metformin 1,000 mg tablet 1,000 mg PO BID #180 tabs propranolol 10 mg tablet 20 mg (2 x 10 mg) PO TID 30 days 11/29/24 #180 tabs gabapentin 300 mg capsule 300 mg PO TID #90 caps 12/12 duloxetine 60 mg capsule,delayed 60 mg PO BID 90 days #180 caps 12/31/24 release buspirone 15 mg tablet 15 mg PO TID #270 tabs 01/14 clonazepam 0.5 mg tablet 0.5 mg PO TID #90 tabs 01/14 clonidine HCl 0.1 mg tablet 0.1 mg PO BID 90 days #180 tabs 01/14/25 lorazepam 1 mg tablet 1 mg PO DAILY PRN agitation #20 01/14/25 tabs oxcarbazepine 300 mg tablet 300 mg PO BID #180 tabs risperidone 0.5 mg tablet 0.5 mg PO BID #180 tabs 12/24 10/16 Ozempic 0.25 mg or 0.5 mg (2 mg/3 0.5 mg (0.736 mL) givens bcut QWEEK 4 01/30/25 mL) subcutaneous pen injector weeks #3 mL (semaglutide) lisinopril 10 mg tablet 10 mg PO DAILY #90 tabs 04/18 blood-glucose sensor (FreeStyle #2 ea 02/05/25 Desiree 3 Plus Sensor device) atorvastatin 10 mg tablet 10 mg PO DAILY #90 tabs 01/16 clotrimazole 1 % topical cream 1 appl topical bid 2 we eks #45 03/06/25 grams fluconazole 150 mg tablet 150 mg PO Q3D #2 tabs Allergies Allergy/AdvReac Type Severity Reaction Status Date / Time Sulfa (Sulfonamide Allergy Unknown RASH Verified 03/09/25 19:28 Antibiotics) (SULFA (SULFONAMIDE ANTIBIOTICS)) sulfamethoxazole (From Allergy Unknown RASH Verified 03/09/25 19:28 BACTRIM) trimethoprim (From BACTRIM) Allergy Unknown RASH Verified 03/09/25 19:28 Review of Systems Constitutional: Constitutional: Denies chills, Denies fever(s) and Denies headache(s) Eyes: Eyes: Denies change in vision and Denies other (No redness.) ENT: Denies headache(s), Reports nasal congestion, Denies nasal discharge and Denies sore throat Cardiovascular: Cardiovascular: Denies chest pain, Denies dyspnea, Denies dyspnea on exertion and Denies orthopnea Respiratory: Respiratory: Denies cough, Denies dyspnea and Denies dyspnea on exertion Gastrointestinal: Gastrointestinal: Denies abdominal pain, Denies nausea and Denies vomiting Genitourinary: Genitourinary: Denies difficulty urinating, Denies dysuria and Denies urinary urgency Musculoskeletal: Musculoskeletal: Denies back pain Integumentary/Breasts: Skin/Breast: Denies rash Neurologic: Denies headache(s) and Denies focal weakness [facility] Past Medical History Medical History Elevated LFTs Lymphedema Major depression, recurrent, chronic Chronic post-traumatic stress disorder (PTSD) Type 2 diabetes mellitus with morbid obesity Spinal stenosis Spondylolisthesis of lumbar region Anxiety Hypertension Prediabetes Vitamin D deficiency Surgical History No pertinent past surgical history Family History Family History Father Hypertension Heart disease CVA (cerebral vascular accident) Mother Hypertension Diabetes Thyroid nodule Obesity Social History Social History Housing: House Alcohol intake: current Alcohol intake frequency: holidays/special occasions only Patient Tobacco Use Status: Never used Tobacco e-Cigarette/Vaping Use: Never Used Second Hand Smoke Exposure: No Advance Directives: No Advance Directives Information Provided: No service: No Current occupational status: disabled Cognitive needs: Yes (cane) Hearing needs: No Vision needs: No Physical Exam Vital Signs: Vital Signs: Last Vital Signs Temp 100.3 F 03/09/25 19:26 Resp 16 03/09/25 19:26 BP 184/88 H 03/09/25 19:26 Pulse Ox 95 03/09/25 19:26 O2 Del Method Room Air 03/09/25 19:26 BMI result Body Mass Index 69.6 Const: General: alert and awake HEENT: Other: Oropharynx is moist. Slight erythema to the right posterior soft palate and pillar. There is no evidence of DIRECT [facility]. No exudate. Speaks full clear sentences. No drooling. Slight nasal congestion but no nasal discharge. No maxillary tenderness Resp: Other: Lung sounds clear throughout Cardio: Rate: regular rate Rhythm: regular rhythm Course Course Course Narrative: Rheaalanis Hurley [employer] 03/09 1927 This is a rapid medical exam. Deferred additional HPI, ROS, PE to primary provider. 34 yo male with history of morbid obesity, HTN, DM, depression, anxiety, PTSD, HLD, juvenile asthma here with complaints of shortness of breath today. No recent illnesses. Low grade fever in triage. Will obtain CXR, viral testing. Medications Administered Discontinued Medications Generic Name Dose Route Start Last Admin Trade Name Rusty PRN Reason Stop Dose Admin Acetaminophen 975 mg 03/09/25 19:30 03/09/25 19:43 Acetaminophen 325 Mg Tablet PO 03/09/25 19:31 975 mg ONCE ONE Administration Medical Decision Making Medical Decision Making [facility] Narrative: 34-year-old male with episode of shortness of breath and cough which has since resolved. He is hemodynamically stable. Low-grade temperature on arrival, resolved with Tylenol. Viral swabs are negative including negative chest x-ray. Patient has very mild symptoms, nasal congestion. No obvious sinusitis that would warrant antibiotics. Trial of symptomatic treatment and patient will continue to monitor symptoms. Patient states his glucose has been fairly well controlled but has not checked it today. We will check point of care now. In addition I have discussed with the patient about checking his urine for UTI. Patient states that he urinated earlier in is not able to provide even a small sample and does not wish to wait any longer. He denies any dysuria or hematuria, no back pain. He assures me that his symptoms of balanitis are improving. At this time, the patient feels comfortable with discharge plan home. He will follow up with PCP. No further questions at this time. Differential Diagnosis Differential Diagnoses: The differential diagnosis associated with the presentation includes Viral syndrome Sinusitis URI UTI Lab Data [facility] Lab Attestation statement: I reviewed the patient's lab results. Labs: Lab Results 03/09/25 Range/Units 20:02 Influenza Type A (PCR) NEGATIVE (Negative) Influenza Type B (PCR) NEGATIVE (Negative) RSV RNA Qual (PCR) NEGATIVE (Negative) SARS-CoV-2 RNA (RT-PCR) NEGATIVE (Negative) Chronic Conditions Patient?s care impacted by: Diabetes and Hypertension Discharge Plan Discharge Clinical Impression: URI (upper respiratory infection) Patient Disposition: Home, Self-Care Instructions: Upper Respiratory Infection (ED) Additional Instructions: As discussed, your chest x-ray was normal today. Your viral test for flu, RSV and COVID were negative. Warm water and salt gargles. Tylenol or ibuprofen for pain, fever. You may also try nasal saline. Closely monitor your glucose levels. Follow-up with your primary care provider. Call this week to schedule a follow- up appointment. Return to the emergency department if you have any worsening of symptoms, or any concerns. Get well soon! Prescriptions: No Action (DME) blood-glucose meter [FreeStyle Lite Meter] Kit See Rx Instructions .Route Qty: 1 0RF Rx Instructions: As directed 2 X/day (DME) FreeStyle Lite Strips Strip See Rx Instructions .Route Qty: 50 5RF Rx Instructions: As directed tests 2 X/day (DME) lancets [FreeStyle Lancets] 28 gauge misc See Rx Instructions .Route Qty: 50 5RF Rx Instructions: As directed tests 2 X/day cholecalciferol (vitamin D3) 50 mcg (2,000 unit) capsule 50 mcg PO DAILY 90 Days Qty: 90 1RF metformin 1,000 mg tablet 1,000 mg PO BID Qty: 180 8RF propranolol 10 mg tablet 20 mg PO TID 30 Days Qty: 180 1RF gabapentin 300 mg capsule 300 mg PO TID Qty: 90 3RF duloxetine 60 mg capsule,delayed release(DR/EC) 60 mg PO BID 90 Days Qty: 180 1RF lisinopril 10 mg tablet 10 mg PO DAILY Qty: 90 1RF Ozempic 0.25 mg or 0.5 mg (2 mg/3 mL) pen injector 0.5 mg subcut QWEEK 28 Days Qty: 3 3RF atorvastatin 10 mg tablet 10 mg PO DAILY Qty: 90 1RF pen needle, diabetic [BD Ultra-Fine Keara Pen Needle] 32 gauge x 5/32 needle 1 ea subcut DIRECTED 90 Days Qty: 100 1RF fluconazole 150 mg tablet 150 mg PO Q3D Qty: 2 0RF Rx Instructions: may repeat second dose 72 hrs after first dose if symptoms persist clotrimazole 1 % cream 1 appl topical bid 14 Days Qty: 45 1RF triamcinolone acetonide 0.5 % cream 1 appl topical TID Qty: 15 3RF buspirone 15 mg tablet 15 mg PO TID Qty: 270 1RF clonazepam 0.5 mg tablet 0.5 mg PO TID Qty: 90 1RF clonidine HCl 0.1 mg tablet 0.1 mg PO BID 90 Days Qty: 180 1RF oxcarbazepine 300 mg tablet 300 mg PO BID Qty: 180 1RF risperidone 0.5 mg tablet 0.5 mg PO BID Qty: 180 1RF lorazepam 1 mg tablet 1 mg PO DAILY PRN (Reason: agitation) Qty: 20 1RF (DME) FreeStyle Desiree 3 Plus Sensor Device See Rx Instructions .ROUTE .MEDSUPPLY Qty: 2 11RF Rx Instructions: As directed every 15 days Print Language: Pashto
[2025-03-09 19:26] VITALS: BP 184/88; RESP 16; TEMP 37.9; O2SAT 95; BMI 69.6
--- NOTE | 2025-03-09 19:46 | PC.NURSE ---
Pt a&ox4. no signs of distress Pt ambulates with walker Pt medicated per mar Plan of care ongoing
[2025-03-09 20:45] LABS: Resp Syncy Virus RNA Qual PCR NEGATIVE (Negative); SARS COV2 PCR INHOUSE NEGATIVE (Negative)
--- OUTSIDE RECORDS SUMMARY | 2025-03-09 21:56 | XMS_ITS | Encounter Summary ---
Author Organization [facility] Address [address] [place] [phone] Phone Care Team Providers Care Building Associate Name Role Phone Monty De Los Santos MD Primary Care Provider Dane morillo Encounter Details Date Type Department Care Team (Late st Contact Info) Description 03/02/2011 Documentation [facility] [address] [place], [place] [phone] Family Medicine, Physician [address] [place] [address] Social History Tobacco Use Types Packs/Day Years [...] on filedocumented in this encounter Care Teams Building Associate Relationship Specialty Start Date End Date Monty De Los Santos MD PCP - General 03/04/17 09/09/22 documented as of this encounter
--- OUTSIDE RECORDS SUMMARY | 2025-03-09 21:56 | XMS_ITS | Clinical Summary ---
Author Organization 175 [facility] Address [address] [place] [address] Phone Care Team Providers Care Electric Blasting Cap Assembler Name Role Phone Emily Jurado Primary Care Provider [phone] Social History Tobacco Use Types Packs/Day Years Used Date Smoking Tobacco: Never Assessed Sex and Gender Information Value Date Recorded Sex Assigned at Not on file Legal Sex Male 10:45 AM EDT Gender Identity Not on file Sexual Orientation Not on file Plan of Treatment Upcoming Encounters Date Type Department Care Team ([facility] Contact Info) Description 04/24/2025 9:00 AM EDT Consult Orthopedic Surgery - [place] [address] [phone] Eugene Jones, DPM [address] [address] Health Maintenance Due Date Last Done Comments [...] complete this topic Insurance [place] - [place] [facility] [address] [place] [address] Care Teams Electric Blasting Cap Assembler Relationship Specialty Start Date End Date Emily Jurado PA [address] [facility], [address] [place] [address] PCP - General 12/01/24
[2025-03-09 23:16] LABS: Glucose, Whole Blood 212 mg/dL (60-115)
[2025-03-09 23:36] VITALS: BP 155/83; PULSE 100; RESP 20; TEMP 36.5; O2SAT 96
--- NOTE | 2025-03-09 23:37 | PC.NURSE ---
This RN was not the primary nurse, only reviewed discharge instructions with pt. pt verbalized understanding, no sign of distress upon discharge.
[2025-03-09 23:38] VITALS: BP 155/83; PULSE 100; RESP 20; TEMP 36.5; O2SAT 96
--- NOTE | 2025-03-09 23:38 | PC.NURSE ---
poc 212
== END 2025-03-09 23:39 | disposition home or self-care (01) ==
PROVIDERS: Nurse Practitioner Family; Emergency Provider Emergency Medicine
DX: J06.9 Acute upper respiratory infection, unspecified (principal); E66.01 Morbid (severe) obesity due to excess calories; F43.10 Post-traumatic stress disorder, unspecified; E11.9 Type 2 diabetes mellitus without complications; I10 Essential (primary) hypertension; F41.9 Anxiety disorder, unspecified; R79.89 Other specified abnormal findings of blood chemistry; F33.9 Major depressive disorder, recurrent, unspecified; E55.9 Vitamin D deficiency, unspecified; E78.5 Hyperlipidemia, unspecified; J45.909 Unspecified asthma, uncomplicated; Z79.84 Long term (current) use of oral hypoglycemic drugs; Z79.85 Long-term (current) use of injectable non-insulin antidiabetic drugs
CPT/HCPCS: 71046; 82947; 87637; 99284

== ENCOUNTER → 2025-03-09 19:28 | Outpatient (BNV) | payer OTHER, MEDICAID, SELFPAY | PROVIDERS: Emergency Provider Emergency Medicine; Visit Provider Family Medicine | DX: R06.02 Shortness of breath (principal) | CPT/HCPCS: 71046 ==

== ENCOUNTER 2025-03-10 08:07 | Emergency (ER) | payer OTHER, MEDICAID, SELFPAY ==
--- NOTE | 2025-03-10 | ECG_ITS ---
Test Reason : cp Blood Pressure : */* mmHG Vent. Rate : 99 BPM Atrial Rate : 99 BPM P-R Int : 162 ms QRS Dur : 86 ms QT Int : 320 ms P-R-T Axes : 18 86 11 degrees QTcB Int : 410 ms Normal sinus rhythm Normal ECG When compared with ECG of 31-Jul-2019 21:55, No significant change was found Referred By: Generic ED Physician Electronically Signed By: Tad Kumar
--- NOTE | ~2025-03-10 | US_ITS ---
CLINICAL HISTORY: swelling, pain, nunbness left leg Bilateral lower extremity duplex venous Doppler Comparison: None Technique: Grayscale/Color/Duplex Doppler sonographic evaluation of the deep venous system within both lower extremities. Findings: Right lower extremity Common femoral vein: Patent CFV/GSV junction: Patent Femoral vein: Patent Popliteal vein: Patent Infrapopliteal veins: Not well seen due to body habitus Soft tissue: No focal abnormality Left lower extremity Common femoral vein: Patent CFV/GSV junction: Patent Femoral vein: Patent where seen the distal femoral vein was limited due to body habitus Popliteal vein: Patent Infrapopliteal veins: Not well seen due to body habitus Soft tissues: No focal abnormality Impression: 1. Negative for bilateral lower extremity DVT. Limited exam due to body habitus 2. No Estes's cyst This document has been electronically signed by: Andrés De La Garza MD on 03/10/2025 15:54:25
[2025-03-10 08:12] VITALS: BP 161/68; PULSE 105; RESP 22; TEMP 37; O2SAT 97; BMI 78.3
[2025-03-10 08:35] LABS: Glucose, Whole Blood 260 mg/dL (60-115)
[2025-03-10 09:26] LABS: MANUAL DIFF FLAG NO
[2025-03-10 09:28] LABS: Hematocrit 38.7 % (42.0-52.0); Hemoglobin 13.9 g/dl (14.0-18.0); Imm Gran Abs Auto 0.08 X10*3/uL (0.00-0.03); Imm Gran Pct Auto 0.8 % (0.0-0.4); Lymphocytes Absolute Auto 1.2 X10*3/uL (1.2-4.9); Mean Corpuscular HGB Conc 35.9 g/dl (31.0-36.0); Mean Corpuscular Hemoglobin 30.7 pg (27.0-33.0); Mean Corpuscular Volume 85.4 fL (80.0-98.0); NRBC Abs Auto 0.000 X10*3/uL (0.0-0.012); NRBC Pct Auto 0.0 /100WBC (0.0-0.2); Platelet Count 249 X10*3/uL (160-400); Red Blood Count 4.53 X10*6/uL (4.60-5.80); White Blood Count 10.0 X10*3/uL (4.8-10.8)
--- OUTSIDE RECORDS SUMMARY | 2025-03-10 09:30 | XMS_ITS | Clinical Summary ---
Author Organization 175 [facility] Address [address] [place] [address] Phone Care Team Providers Care Field Service Manager Name Role Phone Emily Jurado Primary Care Provider [phone] Social History Tobacco Use Types Packs/Day Years Used Date Smoking Tobacco: Never Assessed Sex and Gender Information Value Date Recorded Sex Assigned at Not on file Legal Sex Male 10:45 AM EDT Gender Identity Not on file Sexual Orientation Not on file Plan of Treatment Upcoming Encounters Date Type Department Care Team ([facility] Contact Info) Description 04/24/2025 9:00 AM EDT Consult Orthopedic Surgery - [place] [address] [phone] Eugene Jones, DPM [address] [address] Health Maintenance Due Date Last Done Comments [...] complete this topic Insurance [place] - [place] [facility] [address] [place] [address] Care Teams Field Service Manager Relationship Specialty Start Date End Date Emily Jurado PA [address] [facility], [address] [place] [address] PCP - General 12/01/24
[2025-03-10 09:43] LABS: Alanine Aminotransferase 18 U/L (0-40); Albumin Level 3.7 g/dL (3.5-5.0); Alkaline Phosphatase 64 U/L (39-117); Anion Gap 15 (12-20); Aspartate Amino Transferase 44 U/L (5-37); Blood Urea Nitrogen 10 mg/dL (9-16); Calcium 9.5 mg/dL (8.4-10.2); Carbon Dioxide 21 mmol/L (22-29); Chloride 100 mmol/L (96-108); Creatinine Clr Calc Pharmacy 232.2; Estimated Glomerular Filt Rate > 60; Magnesium 1.7 mg/dL (1.6-2.6); Potassium 3.8 mmol/L (3.3-5.1); Sodium 132 mmol/L (135-145); Total Protein 7.0 g/dL (6.5-8.0)
[2025-03-10 10:27] VITALS: BMI 75.3
--- NOTE | 2025-03-10 10:32 | PC.NURSE ---
weight updated via standing scale in triage
[2025-03-10 10:42] VITALS: BP 129/74; PULSE 102; RESP 17; O2SAT 96
--- NOTE | 2025-03-10 10:42 | ED_ITS ---
HPI - Chest Pain General Chief Complaint: Chest Pain Stated Complaint: fever + left foot numb + CP Time Seen by Provider: 03/10/25 10:36 Source: patient Mode of arrival: ambulatory Limitations: no limitations History of Present Illness ED Provider: Rhea Hurley APRN HPI narrative: 34 yo male with a past medical history of diabetes, hypertension, hyperlipidemia, anxiety, depression, PTSD, chronic lymphedema, morbid obesity presents to the ER with complaints of 2 days of shortness of breath. Patient reports yesterday he experience shortness of breath and was seen in the emergency room. He had a low-grade fever. He had viral testing and a chest x- ray which were normal and he was discharged home with the diagnosis viral upper respiratory infection. He returns to the emergency room today with continued shortness of breath and pleuritic chest pain. He reports when he woke up this morning he also noticed some numbness to his left lower extremity. Denies any pain in the left lower extremity. He does have chronic lymphedema and swelling of both lower extremities right greater than left. Also denies any history of diabetic neuropathy. He denies any cough. He is unsure if he has had fevers since being discharge. He has no history of chronic lung disease. He denies any recent travel, surgeries or hospitalizations. No history of PE/DVT. Currently being treated for balanitis from with fluconazole and clotrimazole topical. Related Data Previous Rx's ?Medication ?Instructions ?Recorded pen needle, diabetic 32 gauge x 1 ea subcut DIRECTE D 90 days 12/16/20 (BD Ultra-Fine [place] Pen #100 ea Needle) blood sugar diagnostic (FreeStyle #50 ea 05/18/22 Lite Strips) blood-glucose meter (FreeStyle #1 ea 05/18/22 Lite Meter kit) lancets 28 gauge (FreeStyle #50 ea 05/18/22 Lancets) cholecalciferol (vitamin D3) 50 50 mcg PO DAILY 90 day s #90 caps 11/30/23 mcg (2,000 unit) capsule triamcinolone acetonide 0.5 % 1 appl topical TID #15 g ekith 11/22/24 topical cream metformin 1,000 mg tablet 1,000 mg PO BID #180 tabs propranolol 10 mg tablet 20 mg (2 x 10 mg) PO TID 30 days 11/29/24 #180 tabs gabapentin 300 mg capsule 300 mg PO TID #90 caps 12/12 duloxetine 60 mg capsule,delayed 60 mg PO BID 90 days #180 caps 12/31/24 release buspirone 15 mg tablet 15 mg PO TID #270 tabs 01/14 clonazepam 0.5 mg tablet 0.5 mg PO TID #90 tabs 01/14 clonidine HCl 0.1 mg tablet 0.1 mg PO BID 90 days #180 tabs 01/14/25 lorazepam 1 mg tablet 1 mg PO DAILY PRN agitation #20 01/14/25 tabs oxcarbazepine 300 mg tablet 300 mg PO BID #180 tabs risperidone 0.5 mg tablet 0.5 mg PO BID #180 tabs 12/24 10/16 Ozempic 0.25 mg or 0.5 mg (2 mg/3 0.5 mg (0.736 mL) givens bcut QWEEK 4 01/30/25 mL) subcutaneous pen injector weeks #3 mL (semaglutide) lisinopril 10 mg tablet 10 mg PO DAILY #90 tabs 04/18 blood-glucose sensor (FreeStyle #2 ea 02/05/25 Desiree 3 Plus Sensor device) atorvastatin 10 mg tablet 10 mg PO DAILY #90 tabs 01/16 clotrimazole 1 % topical cream 1 appl topical bid 2 we eks #45 03/06/25 grams fluconazole 150 mg tablet 150 mg PO Q3D #2 tabs Allergies Allergy/AdvReac Type Severity Reaction Status Date / Time Sulfa (Sulfonamide Allergy Unknown RASH Verified 03/10/25 08:15 Antibiotics) (SULFA (SULFONAMIDE ANTIBIOTICS)) sulfamethoxazole (From Allergy Unknown RASH Verified 03/10/25 08:15 BACTRIM) trimethoprim (From BACTRIM) Allergy Unknown RASH Verified 03/10/25 08:15 Review of Systems 2 Review of Systems: Yes all other systems are reviewed and are negative Constitutional: Constitutional: Reports no additional constitutional complaints, Denies body ache(s), Denies chills, Denies fever(s), Denies headache(s) and Denies weakness Eyes: Eyes: Reports no additional eye complaints and Denies change in vision ENT: Reports system reviewed and no additional complaints, except as documented, Denies dizziness, Denies headache(s), Denies nasal congestion, Denies nasal discharge and Denies neck pain Cardiovascular: Cardiovascular: Reports no additional cardiovascular complaints, Reports chest pain, Denies leg edema and Reports dyspnea Respiratory: Respiratory: Reports no additional respiratory complaints, Denies cough and Reports dyspnea Gastrointestinal: Gastrointestinal: Reports no additional gastrointestinal complaints, Denies abdominal pain, Denies diarrhea, Denies nausea and Denies vomiting Genitourinary: Genitourinary: Denies urinary incontinence Musculoskeletal: Musculoskeletal: Reports no additional musculoskeletal complaints, Denies back pain, Denies arthralgias, Denies joint swelling, Denies neck pain, Reports numbness and Denies tingling Integumentary/Breasts: Skin/Breast: Reports system reviewed and no additional complaints, except as docu and Denies rash Neurologic: Reports system reviewed and no additional complaints, except as documented, Denies Abnormal speech present, Denies dizziness, Denies headache(s), Reports numbness, Denies tingling and Denies weakness PMFSH Past Medical History Attestation statement: The following information was validated with the patient. Source: old records reviewed and nursing notes reviewed Medical History Elevated LFTs Lymphedema Major depression, recurrent, chronic Chronic post-traumatic stress disorder (PTSD) Type 2 diabetes mellitus with morbid obesity Spinal stenosis Spondylolisthesis of lumbar region Anxiety Hypertension Prediabetes Vitamin D deficiency Surgical History No pertinent past surgical history Family History Family History Father Hypertension Heart disease CVA (cerebral vascular accident) Mother Hypertension Diabetes Thyroid nodule Obesity Social History Social History Housing: House Alcohol intake: current Alcohol intake frequency: holidays/special occasions only Patient Tobacco Use Status: Never used Tobacco Smoked in Last 30 Days: No e-Cigarette/Vaping Use: Never Used Second Hand Smoke Exposure: No Advance Directives: No Advance Directives Information Provided: No service: No Current occupational status: disabled Cognitive needs: Yes (cane) Hearing needs: No Vision needs: No Physical Exam 2 Vital Signs: Vital Signs: Last Vital Signs Temp 99.1 F 03/10/25 13:04 Pulse 102 H 03/10/25 10:42 Resp 17 03/10/25 10:42 BP 129/74 03/10/25 10:42 Pulse Ox 96 03/10/25 10:42 O2 Del Method Room Air 03/10/25 10:42 BMI result Body Mass Index 75.3 Const: General: cooperative, healthy appearing, comfortable and no acute distress Orientation/consciousness: patient oriented x3 Limitations: no limitations HEENT: Head: Yes normal to inspection Ears: hearing grossly normal bilaterally and TM's normal bilaterally General nose exam: Normal external nose present Face and sinus: Yes normal facial exam Mouth: Normal oral and palatal mucosa present Throat: Yes posterior oropharynx normal, Yes tonsils normal and Yes uvula midline Eyes: General: appearance normal, both eyes and all related structures P upils: Equal, round and reactive pupils present Neck: Neck: Yes normal visual inspection, Yes full ROM, Yes no lymphadenopathy and Yes no meningeal signs Chest: Chest palpation & inspection: normal inspection of the chest Resp: Other: +tachypnea with rate 25-26 Auscultation: clear to auscultation bilaterally Cardio: Rate: regular rate Rhythm: regular rhythm Peripheral pulses: P eripheral pulses 2+ throughout GI: Inspection: Yes normal to inspection Palpation (GI): Soft to palpation and nontender Auscultation: normal bowel sounds Back/Spine/Pelvis: Thoracic/Lumbar Spine: thoracic and lumbar spine normal to inspection Skin: General skin exam: no rashes or lesions noted Neuro: General: patient oriented x3, no meningeal signs, no focal motor deficits and normal sensation to monofilament Cranial nerves: Yes Equal, round and reactive pupils present Cognition (Neuro): normal cognition S peech: No Abnormal speech present Gait exam (Neuro): Normal gait present M otor exam (neuro): 5/5 motor strength present throughout Extrem: Other: +lymphedema to both LE Left > Right 2+ DP/PT pulses Normal sensation No calf tenderness Patient reports decreased sensation to the posterior left calf. He tells me he can feel me touching but it is diminished General: Yes normal to inspection Course Course Course Narrative: I did confirm with out machine operator slitter technician that our ER CT scan has a weight limit of 440lbs and our main CT scan has a weight limit of 500lbs. We did weigh the patient today and his weight is 508.64. I also confirmed with [facility] that their bed has a 500lb weight limit. Reevaluation(s) Reevaluation #1: 1300-this is a morbidly obese patient with reports of shortness of breath and pleuritic chest pain x 48hrs who has tachypnea, tachycardia and a low-grade fever who I strongly suspect may have a PE however neither are CAT scan or nuclear medicine department have a bed that can hold the weight of the patient in order to definitively rule this out. Therefore after discussion with my attending physician I will attempt to transfer him to a facility has the capability to perform bariatric CT scan. 1315-Called [facility] transfer [place] and they are closed to transfers. I will attempt to call [facility] as this the nearest tertiary care center that may have capability to perform this test. Reevaluation #2: 1330- needs chest measurements. We do not have tape measures in this hospital per our supervisor ornamental ironworking. Therefore we were able to use measured tubing to obtain measurements for this patient. Reevaluation #3: 1420- accepts patient transfer to their ER with accepting MD Dr Silva Additional Reevaluation(s): 1500-when the patient left the department his ultrasound is still pending. Unofficially it is negative for DVT but very limited due to underlying patient body habitus Medications Administered Discontinued Medications Generic Name Dose Route Start Last Admin Trade Name Freq PRN Reason Stop Dose Admin Acetaminophen 975 mg 03/10/25 12:15 03/10/25 12:26 Acetaminophen 325 Mg Tablet PO 03/10/25 12:16 975 mg ONCE ONE Administration Sodium Chloride 500 mls @ 999 mls/hr 03/10/25 11:01 03/10/25 12:25 Ns IV 03/10/25 11:31 Infused .Q31M STA Infusion Medical Decision Making Medical Decision Making [facility] Narrative: 34 yo male with a past medical history of diabetes, hypertension, hyperlipidemia, anxiety, depression, PTSD, chronic lymphedema, morbid obesity presents to the ER with complaints of 2 days of shortness of breath. Patient reports yesterday he experience shortness of breath and was seen in the emergency room. He had a low-grade fever. He had viral testing and a chest x- ray which were normal and he was discharged home with the diagnosis viral upper respiratory infection. He returns to the emergency room today with continued shortness of breath and pleuritic chest pain. He reports when he woke up this morning he also noticed some numbness to his left lower extremity. Denies any pain in the left lower extremity. He does have chronic lymphedema and swelling of both lower extremities right greater than left. Also denies any history of diabetic neuropathy. He denies any cough. He is unsure if he has had fevers since being discharge. He has no history of chronic lung disease. He denies any recent travel, surgeries or hospitalizations. No history of PE/DVT. Currently being treated for balanitis from with fluconazole and clotrimazole topical. On arrival the patient is alert. He is oriented x3. He is speaking full sentences but has to pause to catch his breath occasionally. His respiratory rate at rest is 24-26. His pulse oximeter is 96% on room air. His heart rate is 102-105. He is mildly hypertensive. His lungs are clear. He is mildly diaphoretic. He has chronic lymphedema to both lower extremities. There is more swelling on the right versus the left which patient reports is normal. Normal CMS distally. I do not appreciate any pain on palpation to the calves. There is no warmth. There is no pitting edema. He does report some decreased sensation on palpation over the posterior left calf. Patient was seen here yesterday and I did review his chest x-ray and viral testing which were unremarkable. Today I will order lab work, an EKG, a venous ultrasound, and I will repeat his viral testing. Differential Diagnosis Differential Diagnoses: The differential diagnosis associated with the presentation includes Due to his obesity, immobility with tachycardia, tachypnea and complaints of pleuritic chest pain and shortness of breath I would consider PE Pneumonia ACS Viral syndrome Admission/Observation Consideration of admission/observation: Escalation of care including admission/observation considered Lab Data [facility] Lab Attestation statement: I reviewed the patient's lab results. 03/10/25 09:22 03/10/25 09:22 Labs: Lab Results 03/10/25 03/10/25 03/10/25 Range/Units 08:16 09:22 11:00 WBC 10.0 (4.8-10.8) X10*3/uL RBC 4.53 L (4.60-5.80) X10*6/uL Hgb 13.9 L (14.0-18.0) g/dl Hct 38.7 L (42.0-52.0) % MCV 85.4 (80.0-98.0) fL MCH 30.7 (27.0-33.0) pg MCHC 35.9 (31.0-36.0) g/dl RDW 12.6 (11.0-16.0) % Plt Count 249 D (160-400) X10*3/uL MPV 9.3 L (9.4-12.4) fL Immature Gran % (Auto) 0.8 H (0.0-0.4) % Neut % (Auto) 74.9 H (45-73) % Lymph % (Auto) 12.2 L (20-40) % [place] % (Auto) 9.2 (2-11) % Eos % (Auto) 2.5 (0-4) % Baso % (Auto) 0.4 (0-2) % Lymph # (Auto) 1.2 (1.2-4.9) X10*3/uL [place] # (Auto) 0.9 (0.1-1.2) X10*3/uL Eos # (Auto) 0.3 (0.0-0.4) X10*3/uL Baso # (Auto) 0.0 (0.0-0.2) X10*3/uL Abs Immat Gran (auto) 0.08 H (0.00-0.03) X10*3/uL Absolute Neuts (auto) 7.5 (2.0-8.3) x10*3/uL Absolute Nucleated RBC 0.000 (0.0-0.012) X10*3/uL Nucleated RBC % (auto) 0.0 (0.0-0.2) /100WBC ESR 66 H (0-15) MM/HR PT (10.9-12.4) SEC INR (0.9-1.1) D-Dimer High Sensitivty NG/ML Sodium 132 L (135-145) mmol/L Potassium 3.8 (3.3-5.1) mmol/L Chloride 100 (96-108) mmol/L Carbon Dioxide 21 L (22-29) mmol/L Anion Gap 15 (12-20) BUN 10 (9-16) mg/dL Creatinine 0.87 (0.5-1.4) mg/dL Estim Creat Clear Calc 232.2 Estimated GFR > 60 POC Glucose 260 H (60-115) mg/dL Random Glucose 248 H (60-115) mg/dL Calcium 9.5 (8.4-10.2) mg/dL Magnesium 1.7 (1.6-2.6) mg/dL Total Bilirubin 0.6 (0.0-1.0) mg/dL Direct Bilirubin 0.3 (0.0-0.5) mg/dL AST 44 H (5-37) U/L ALT 18 (0-40) U/L Alkaline Phosphatase 64 (39-117) U/L Troponin I High Sens 4.2 (<3.5-35.0) ng/L C-Reactive Protein 17.13 H (< or = 0.50) mg/dL Total Protein 7.0 (6.5-8.0) g/dL Albumin 3.7 (3.5-5.0) g/dL Influenza Type A (PCR) NEGATIVE (Negative) Influenza Type B (PCR) NEGATIVE (Negative) RSV RNA Qual (PCR) NEGATIVE (Negative) SARS-CoV-2 RNA (RT-PCR) NEGATIVE (Negative) 03/10/25 Range/Units 11:08 WBC (4.8-10.8) X10*3/uL RBC (4.60-5.80) X10*6/uL Hgb (14.0-18.0) g/dl Hct (42.0-52.0) % MCV (80.0-98.0) fL MCH (27.0-33.0) pg MCHC (31.0-36.0) g/dl RDW (11.0-16.0) % Plt Count (160-400) X10*3/uL MPV (9.4-12.4) fL Immature Gran % (Auto) (0.0-0.4) % Neut % (Auto) (45-73) % Lymph % (Auto) (20-40) % [place] % (Auto) (2-11) % Eos % (Auto) (0-4) % Baso % (Auto) (0-2) % Lymph # (Auto) (1.2-4.9) X10*3/uL [place] # (Auto) (0.1-1.2) X10*3/uL Eos # (Auto) (0.0-0.4) X10*3/uL Baso # (Auto) (0.0-0.2) X10*3/uL Abs Immat Gran (auto) (0.00-0.03) X10*3/uL Absolute Neuts (auto) (2.0-8.3) x10*3/uL Absolute Nucleated RBC (0.0-0.012) X10*3/uL Nucleated RBC % (auto) (0.0-0.2) /100WBC ESR (0-15) MM/HR PT 13.5 H (10.9-12.4) SEC INR 1.2 H (0.9-1.1) D-Dimer High Sensitivty 355 NG/ML Sodium (135-145) mmol/L Potassium (3.3-5.1) mmol/L Chloride (96-108) mmol/L Carbon Dioxide (22-29) mmol/L Anion Gap (12-20) BUN (9-16) mg/dL Creatinine (0.5-1.4) mg/dL Estim Creat Clear Calc Estimated GFR POC Glucose (60-115) mg/dL Random Glucose (60-115) mg/dL Calcium (8.4-10.2) mg/dL Magnesium (1.6-2.6) mg/dL Total Bilirubin (0.0-1.0) mg/dL Direct Bilirubin (0.0-0.5) mg/dL AST (5-37) U/L ALT (0-40) U/L Alkaline Phosphatase (39-117) U/L Troponin I High Sens (<3.5-35.0) ng/L C-Reactive Protein (< or = 0.50) mg/dL Total Protein (6.5-8.0) g/dL Albumin (3.5-5.0) g/dL Influenza Type A (PCR) (Negative) Influenza Type B (PCR) (Negative) RSV RNA Qual (PCR) (Negative) SARS-CoV-2 RNA (RT-PCR) (Negative) Independent Interpretation I performed an independent interpretation of an: EKG Interpretation: I independently reviewed an EKG which shows normal sinus rhythm with a rate of 99, normal MO, normal QRS, normal QT Independent Historian Clinical information obtained from an independent historian. History obtained from or confirmed by: Parent Critical Care Time Critical Care Time Critical Care Time: Yes Total Critical Care Time: 90 Attestation: Direct patient care, patient reassessment, coordination of patient care, interpretation of data (laboratory data, pulse oximetry, arterial blood gases and chest xrays), review of patient's medical records, medical consultation and documentation of patient care. Discharge Plan Discharge Clinical Impression: Shortness of breath Patient Disposition: [facility] Transfer Details: [facility] Prescriptions: No Action (DME) blood-glucose meter [FreeStyle Lite Meter] Kit See Rx Instructions .Route Qty: 1 0RF Rx Instructions: As directed 2 X/day (DME) FreeStyle Lite Strips Strip See Rx Instructions .Route Qty: 50 5RF Rx Instructions: As directed tests 2 X/day (DME) lancets [FreeStyle Lancets] 28 gauge misc See Rx Instructions .Route Qty: 50 5RF Rx Instructions: As directed tests 2 X/day cholecalciferol (vitamin D3) 50 mcg (2,000 unit) capsule 50 mcg PO DAILY 90 Days Qty: 90 1RF metformin 1,000 mg tablet 1,000 mg PO BID Qty: 180 8RF propranolol 10 mg tablet 20 mg PO TID 30 Days Qty: 180 1RF gabapentin 300 mg capsule 300 mg PO TID Qty: 90 3RF duloxetine 60 mg capsule,delayed release(DR/EC) 60 mg PO BID 90 Days Qty: 180 1RF lisinopril 10 mg tablet 10 mg PO DAILY Qty: 90 1RF Ozempic 0.25 mg or 0.5 mg (2 mg/3 mL) pen injector 0.5 mg subcut QWEEK 28 Days Qty: 3 3RF atorvastatin 10 mg tablet 10 mg PO DAILY Qty: 90 1RF pen needle, diabetic [BD Ultra-Fine [place] Pen Needle] 32 gauge x 5/32 needle 1 ea subcut DIRECTED 90 Days Qty: 100 1RF fluconazole 150 mg tablet 150 mg PO Q3D Qty: 2 0RF Rx Instructions: may repeat second dose 72 hrs after first dose if symptoms persist clotrimazole 1 % cream 1 appl topical bid 14 Days Qty: 45 1RF triamcinolone acetonide 0.5 % cream 1 appl topical TID Qty: 15 3RF buspirone 15 mg tablet 15 mg PO TID Qty: 270 1RF clonazepam 0.5 mg tablet 0.5 mg PO TID Qty: 90 1RF clonidine HCl 0.1 mg tablet 0.1 mg PO BID 90 Days Qty: 180 1RF oxcarbazepine 300 mg tablet 300 mg PO BID Qty: 180 1RF risperidone 0.5 mg tablet 0.5 mg PO BID Qty: 180 1RF lorazepam 1 mg tablet 1 mg PO DAILY PRN (Reason: agitation) Qty: 20 1RF (DME) FreeStyle Desiree 3 Plus Sensor Device See Rx Instructions .ROUTE .MEDSUPPLY Qty: 2 11RF Rx Instructions: As directed every 15 days Print Language: Cameroonian
[2025-03-10 11:11] LABS: Troponin-I High Sensitivity 4.2 ng/L (<3.5-35.0)
[2025-03-10 11:24] LABS: INTERNATIONAL NORM RATIO 1.2 (0.9-1.1); Prothrombin Time 13.5 SEC (10.9-12.4)
[2025-03-10 11:31] LABS: D Dimer High Sensitivity 355 NG/ML
[2025-03-10 12:16] VITALS: TEMP 38.3
[2025-03-10 12:16] LABS: Resp Syncy Virus RNA Qual PCR NEGATIVE (Negative); SARS COV2 PCR INHOUSE NEGATIVE (Negative)
[2025-03-10 13:04] VITALS: TEMP 37.3
--- NOTE | 2025-03-10 16:00 | PC.NURSE ---
Addendum entered by Kimi Lechuga RN 03/10/25 16:16: call center manager back to [place] able to speak to Stephie MCLAIN and gave verbal report over phone. Original Note: Pt to [facility] for needed CT scan, report given to EMS. Attempted to reach [facility] staff via phone and unable to
== END 2025-03-10 15:04 | disposition short-term general hospital (02) ==
PROVIDERS: Nurse Practitioner Family; Physician Assistant Medical; Emergency Provider Emergency Medicine
DX: R06.02 Shortness of breath (principal); R07.9 Chest pain, unspecified; R50.9 Fever, unspecified; I10 Essential (primary) hypertension; E78.5 Hyperlipidemia, unspecified; E11.9 Type 2 diabetes mellitus without complications; F41.9 Anxiety disorder, unspecified; Z03.818 Encounter for observation for suspected exposure to other biological agents ruled out
CPT/HCPCS: 36415; 80053; 82248; 82947; 83735; 84484; 85025; 85379; 85610; 85652; 86140; 87637; 93005; 93970; 96360; 99285

== ENCOUNTER → 2025-03-10 08:19 | Outpatient (BNV) | payer OTHER, MEDICAID, SELFPAY | PROVIDERS: Emergency Provider Emergency Medicine; Visit Provider Internal Medicine Cardiovascular Disease | DX: R07.9 Chest pain, unspecified (principal) | CPT/HCPCS: 93010 ==

== ENCOUNTER → 2025-03-10 11:00 | Outpatient (BNV) | payer OTHER, MEDICAID, SELFPAY | PROVIDERS: Emergency Provider Emergency Medicine; Visit Provider Radiology Diagnostic Radiology | DX: R22.43 Localized swelling, mass and lump, lower limb, bilateral (principal) | CPT/HCPCS: 93970 ==

== ENCOUNTER 2025-03-19 08:25 | Outpatient (AMB) | payer OTHER, MEDICAID, SELFPAY ==
--- NOTE | 2025-03-19 08:34 | MHC.OFFVIS ---
Vital Signs 03/19/25 08:37 Height 5 ft 9 in Weight 511 lb 7.559 oz BMI 75.5 BP 134/74 Blood Pressure Location Rt radial Position Sitting Pulse 79 Pulse Source Pulse Oximeter Pulse Oximetry (%) 97 Oxygen Delivery Method Room Air Intake Visit Reasons: Type II diabetes Intake Note: Patient present today to follow up on Type 2 Diabetes Mellitus. 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 Accompanied by: Mother Allergies Sulfa (Sulfonamide Antibiotics) (SULFA (SULFONAMIDE ANTIBIOTICS)) Allergy (Unknown, Verified 03/19/25 08:38) RASH sulfamethoxazole (From BACTRIM) Allergy (Unknown, Verified 03/19/25 08:38) RASH trimethoprim (From BACTRIM) Allergy (Unknown, Verified 03/19/25 08:38) RASH amoxicillin Adverse Reaction (Unknown, Verified 03/19/25 08:38) UTI, Swelling in the genital area Medication List - Last Reconciled 03/19/25 by JERICHO Rao atorvastatin 10 mg PO DAILY blood sugar diagnostic (FreeStyle Lite Strips) As directed tests 2 X/day blood-glucose meter (FreeStyle Lite Meter kit) As directed 2 X/day blood-glucose sensor (FreeStyle Desiree 3 Plus Sensor device) As directed every 15 days buspirone 15 mg PO TID cholecalciferol (vitamin D3) 50 mcg PO DAILY 90 days clonazepam 0.5 mg PO TID clonidine HCl 0.1 mg PO BID 90 days clotrimazole 1% 1 appl topical bid 2 weeks duloxetine 60 mg PO BID 90 days fluconazole 150 mg PO Q3D gabapentin 300 mg PO TID lancets (FreeStyle Lancets) As directed tests 2 X/day lisinopril 10 mg PO DAILY lorazepam 1 mg PO DAILY PRN metformin 1,000 mg PO BID oxcarbazepine 300 mg PO BID pen needle, diabetic (BD Ultra-Fine [place] Pen Needle) 1 ea subcut DIRECTED 90 days propranolol 20 mg (2 x 10 mg) PO TID 30 days risperidone 0.5 mg PO BID semaglutide (Ozempic) 1 mg (0.75 mL) subcut QWEEK triamcinolone acetonide 0.5% 1 appl topical TID HPI Comments Details: This is a 34-year-old male with a past medical history of type 2 diabetes, hyperlipidemia, hypertension, vitamin-D deficiency, lymphedema, depression, anxiety, agoraphobia and PTSD presenting for diabetic management. He was initially diagnosed with type 2 diabetes and approximately 2020. Hemoglobin A1c today is 8.6%. He is severely needle phobic and does not use a glucometer. He does not have CGM with him today. He has the sensors at home. Current medication regimen: Ozempic 0.5 mg weekly. Metformin 1000 mg twice daily. Past medications: Mounjaro discontinued due to nausea. Denies hypoglycemia. Denies symptoms of hyperglycemia. Complications: Neuropathy, upcoming appointment with Podiatry at [place]. Patient's liver function tests have been elevated. He was hospitalized with pneumonia at [facility]. He is doing better now. He completed antibiotics. ROS: Constitutional: No fevers, chills or night sweats. Respiratory: No shortness of breath Cardiovascular: No chest pain Gastrointestinal: No anorexia, nausea, vomiting or diarrhea. No abdominal pain or blood in stool. Endocrine: No cold or heat intolerance. No polyuria or polydipsia. Physical exam: Constitutional: Alert, in no distress. Neck: Supple, Full range of motion. No lymphadenopathy. No palpable thyroid masses. Respiratory: Clear to auscultation. Cardiovascular: S1 S2 regular. No murmurs. Neurologic: No focal neurological deficits. Psychiatric: Normal mood and affect [facility] Medical History Elevated LFTs Lymphedema Major depression, recurrent, chronic Chronic post-traumatic stress disorder (PTSD) Type 2 diabetes mellitus with morbid obesity Spinal stenosis Spondylolisthesis of lumbar region Anxiety Hypertension Prediabetes Vitamin D deficiency Surgical History No pertinent past surgical history Family History Father Hypertension Heart disease CVA (cerebral vascular accident) Mother Hypertension Diabetes Thyroid nodule Obesity Social History Housing: House Alcohol intake: current Alcohol intake frequency: holidays/special occasions only Patient Tobacco Use Status: Never used Tobacco e-Cigarette/Vaping Use: Never Used Second Hand Smoke Exposure: No service: No Current occupational status: disabled Cognitive needs: Yes (cane) Hearing needs: No Vision needs: No Physical Exam Vital Signs: Last Vital Signs Pulse 79 03/19/25 08:37 BP 134/74 03/19/25 08:37 Pulse Ox 97 03/19/25 08:37 Oxygen Delivery Method Room Air 03/19/25 08:37 BMI result Body Mass Index 75.5 Results AMB Hemoglobin A1c AMB Hemoglobin A1c 8.6 % Last Edit by CHIQUI Hooks on 03/19/25 08:58 Results Reviewed Results Reviewed: Laboratory Last Values Glucose (Clinic) 160 mg/dL (60-115) H 03/19/25 08:43 Laboratory Tests 01/31/25 03/10/25 08:10 09:22 Plt Count 367 249 D Creatinine 0.76 0.87 Estimated GFR > 60 > 60 AST 49 H 44 H ALT 43 H 18 Triglycerides 197 H Cholesterol 137 LDL Cholesterol, Calc 54 HDL Cholesterol 44 Vitamin B12 414 TSH 3.32 Assessment & Plan Assessment & Plan (1) Type 2 diabetes mellitus with morbid obesity: Code(s): E11.69 - Type 2 diabetes mellitus with other specified complication; E66.01 - Morbid (severe) obesity due to excess calories Category: Medical (2) Elevated LFTs: Code(s): R79.89 - Other specified abnormal findings of blood chemistry Category: Medical Plan In summary this is a 34-year-old male with uncontrolled type 2 diabetes currently on Ozempic and metformin. Discussed pathophysiology of Type II Diabetes Mellitus with the patient in detail.? I explained the fci risks and complications associated with uncontrolled diabetes including nephropathy, neuropathy, peripheral vascular disease, retinopathy, increased risk of heart disease and stroke.? Discussed lifestyle modification with the patient. Recommended 30 minutes of moderately vigorous exercise 5 days per week to promote weight loss. Continue metformin 1000 mg twice a day. Increase Ozempic to 1 mg weekly. Reviewed the importance of monitoring his blood sugars. Advised to start using CGM and use backup glucometer when necessary, but he is needle phobic. The patient and I discussed possible etiologies for elevated liver enzymes. Could this could be related to prior illness when he had labs drawn, and he was also taking aleve, DayQuil and NyQuil to treat his symptoms. Patient was advised to repeat blood work today. Check hepatitis a B and C serology. Ordered liver ultrasound with elastography. Declines follow up in 6 weeks. He will follow up in 3 months. Orders: Orders AMB Hemoglobin A1c Today E11.69 - Type 2 diabetes mellitus with other specified complication, E66.01 - Morbid (severe) obesity due to excess calories US abdomen rico w elastography Today R79.89 - Other specified abnormal findings of blood chemistry Medications: New semaglutide (Ozempic) 1 mg (0.75 mL) subcut QWEEK 3 mL 3RF Discontinued Ozempic (semaglutide) Discontinued Reason: Doctor's Order 0.5 mg (0.736 mL) subcut QWEEK 4 weeks 3 mL 3RF NS Coding Level of Care Code Est Pt Level 4 (63547) Complex EM visit Add On G2211 Diagnoses Type 2 diabetes mellitus with morbid obesity E11.69; E66.01 Elevated LFTs R79.89
[2025-03-19 08:37] VITALS: BP 134/74; PULSE 79; O2SAT 97; BMI 75.5
--- OUTSIDE RECORDS SUMMARY | 2025-03-19 08:38 | XMS_ITS | Clinical Summary ---
Author Organization [facility] Address [address] [place] [address] Care Team Providers Care Jewel Bearing Turner Name Role Phone Emily Jurado PA-C Primary Care Provider [phone] Allergies Active Allergy Reactions Criticality Noted Date Comments Sulfamethoxazole-Trimethopri m Unknown/Patient and Family Unable to Define Medium 03/10/2025 Sulfa Antibiotics Unknown/Patient and Family Unable to Define Medium 03/10/2025 Medications atorvastatin (LIPITOR) 10 MG tablet Take 1 tablet (10 mg total) by mouth daily. 5 Active busPIRone (BUSPAR) 15 MG tablet Take 1 tablet (15 mg total) by mouth 3 times a day. 5 Active clonazePAM (KlonoPIN) 0.5 MG tablet Take 1 tablet (0.5 mg total) by mouth 3 times a day. 5 Active cloNIDine (CATAPRES) 0.1 MG tablet Take 1 tablet (0.1 mg total) by mouth 2 (two) times a day. 5 Active clotrimazole (LOTRIMIN) 1 % cream APPLY TO AFFECTED AREA TWICE A DAY FOR 2 WEEKS 5 Active DULoxetine (CYMBALTA) 60 MG capsule Take 1 capsule (60 mg total) by mouth 2 (two) times a day in the morning and the early evening.. 5 Active gabapentin (NEURONTIN) 300 MG capsule Take 1 capsule (300 mg total) by mouth 3 times a day. 5 Active metFORMIN (GLUCOPHAGE) 1000 MG tablet Take 1 tablet (1,000 mg total) by mouth 2 (two) times a day with meals. 5 Active OXcarbazepine (TRILEPTAL) 300 MG tablet Take 1 tablet (300 mg total) by mouth 2 (two) times a day. 5 Active propranolol (INDERAL) 10 MG tablet Take 2 tablets (20 mg total) by mouth 3 times a day. 5 Active risperiDONE (RisperDAL) 0.5 MG tablet Take 1 tablet (0.5 mg total) by mouth 2 (two) times a day. 5 Active Ozempic, 0.25 or 0.5 MG/DOSE, 2 MG/3ML prefilled pen injection Inject 0.5 mg under the skin once a week. On Wednesdays 5 Active cholecalcifero l (CHOLECALCIFER OL) 25 MCG (1000 UT) tablet Take 1 tablet (1,000 Units total) by mouth daily. Active Continuous Glucose Sensor (FreeStyle Desiree 3 Sensor) [facility] DIRECT[facility] EVERY 15 DAYS Active lisinopril (PRINIVIL,ZeST RIL) 20 MG tabletIndicati ons:Shortness of breath Take 1 tablet (20 mg total) by mouth daily. Do not start before March 12, 2025. 30 tablet 5 04/11/20 25 Active lisinopril (PRINIVIL,ZeST RIL) 10 MG tablet Take 1 tablet (10 mg total) by mouth daily. 5 03/11/20 25 Discontinu ed(Stop Taking at Discharge) azithromycin (ZITHROMAX) 500 MG tabletIndicati ons:Shortness of breath Take 1 tablet (500 mg total) by mouth daily. 2 tablet 5 03/13/20 25 cefpodoxime (VANTIN) 200 MG tabletIndicati ons:Shortness of breath Take 1 tablet (200 mg total) by mouth 2 (two) times a day. 10 tablet 5 03/16/20 25 Active Problems Problem Noted Date Diagnosed Date Primary hypertension 03/10/2025 Assessment & Plan (03/10/2025 9:46 PM EDT): - Continue lisinopril 10 mg daily Mixed hyperlipidemia 03/10/2025 Assessment & Plan (03/10/2025 9:46 PM EDT): - Continue Lipitor 10 mg daily Type 2 diabetes mellitus wit hout complication, without long-term current use of insulin 03/10/2025 Assessment & Plan (03/10/2025 9:46 PM EDT): Patient is on metformin and semaglutide at baseline. - Will hold metformin and Ozempic while admitted -Will start sliding scale insulin with meals - Glucose checks before every meal and nightly -Follow-up A1c Anxiety 03/10/2025 Assessment & Plan (03/10/2025 9:46 PM EDT): - Continue buspirone 15 mg 3 times daily -Continue clonazepam 0.5 mg 3 times daily -Continue clonidine 0.1 mg twice daily -Continue Cymbalta 60 mg twice daily -Continue Trileptal 300 mg twice daily -Continue propranolol 20 mg 3 times daily -Continue risperidone 0.5 mg twice daily Major depressive disorder in remission Assessment & Plan (03/10/2025 9:46 PM EDT): - Continue buspirone 15 mg 3 times daily -Continue clonazepam 0.5 mg 3 times daily -Continue clonidine 0.1 mg twice daily -Continue Cymbalta 60 mg twice daily -Continue Trileptal 300 mg twice daily -Continue propranolol 20 mg 3 times daily -Continue risperidone 0.5 mg twice daily Chronic acquired lymphedema 03/10/2025 Assessment & Plan (03/10/2025 9:46 PM EDT): Patient has a history of bilateral lymphedema of lower extremities iso morbid obesity. Ultrasound was performed in [facility] of left lower extremity due to numbness and tingling. No DVT was definitively seen although vasculature was poorly visualized due to obesity. No PE seen on CTPA. - Will continue gabapentin 300 mg 3 times daily Morbid obesity (230 kg) 03/10/2025 Assessment & Plan (03/10/2025 9:46 PM EDT): Patient has a history of bilateral lymphedema of lower extremities iso morbid obesity. Ultrasound was performed in [facility] of left lower extremity due to numbness and tingling. No DVT was definitively seen although vasculature was poorly visualized due to obesity. No PE seen on CTPA. - Will continue gabapentin 300 mg 3 times daily Community acquired pneumonia of right middle lob e of lung 03/10/2025 Assessment & Plan (03/10/2025 9:46 PM EDT): Patient presented as a transfer from [facility] for 7 to 10 days of cough with progressive shortness of breath and fevers. He was initially diagnosed with a viral URI after an x-ray outpatient. He was treated with Augmentin for a possible sinus infection but his symptoms persisted and he was developing worsening shortness of breath. He had an elevated D-dimer at [facility] and was transferred to for CTPA. CTPA here was without evidence of DVT but did show right middle lobe consolidation. The patient is febrile to 102.7 in our ED. He remains on room air at this time. Will admit for CAP as he is high risk given his morbid obesity and other comorbidities. - Continue ceftriaxone and azithromycin -Continue Tylenol as needed for fever -Follow-up blood cultures Balanitis 03/10/2025 Assessment & Plan (03/10/2025 9:46 PM EDT): Patient was recently started on treatment for fungal balanitis with oral fluconazole and clotrimazole cream. He completed oral fluconazole. - Will continue clotrimazole cream twice daily Other chronic pain 03/10/2025 Assessment & Plan (03/10/2025 9:46 PM EDT): Patient has a history of bilateral lymphedema of lower extremities iso morbid obesity. Ultrasound was performed in [facility] of left lower extremity due to numbness and tingling. No DVT was definitively seen although vasculature was poorly visualized due to obesity. No PE seen on CTPA. - Will continue gabapentin 300 mg 3 times daily Encounters Date Type Department Care Team Description 03/10/2025 7:20 PM EDT Ancillary Procedure [facility] Emergency Department [address] [place] [address] Arnold He MD 03/10/2025 4:38 PM EDT - 03/11/2025 4:10 PM EDT Hospital Encounter [facility] Emergency Department [address] [place] [address] Arnold He MD Morse, Emily, MD Hamed, Moaz, MD Gandhi, Mehak, MD Shortness of breath (Primary Dx); Chest pain, unspecified; Chest pain on breathing; Breath shortness; Painful respiration; Unresolved pneumonia; Paresthesia; Tactile anesthesia; Stomach ache; Nausea; Diabetes mellitus without complication (HCC); Morbid obesity (HCC); Essential hypertension, malignant ; Major depressive disorder, single episode in full remission ; Obliteration of lymphatic vessel; Chronic intractable pain; MCC (current) use of oral hypoglycemic drugs; Long-term current use of injectable noninsulin antidiabetic medication Discharge Disposition: Home or Self Care 03/10/2025 Travel from Last 3 Months Social History Tobacco Use Types Packs/Day Years Used Date Smoking Tobacco: Never Assessed [facility] Utilities Answer Date Recorded In the past 12 months has th e [employer] gas, oil, or water [employer] threatened to shut off services in your home? No 03/11/2025 Hunger Vital Sign Answer Date Recorded Within the past 12 months, y ou worried that your food would run out before you got the money to buy more. Never true 03/11/20 25 Within the past 12 months, t he food you bought just didn't last and you didn't have money to get more. Never true 03/11/2025 PRAPARE - Transportation Answer Date Re corded In the past 12 months, has l ack of transportation kept you from medical appointments or from getting medications? No 02/22 In the past 12 months, has l ack of transportation kept you from meetings, work, or from getting things needed for daily living? No 03/11/2025 Housing Stability Vital Sign Answer Demond e Recorded In the last 12 months, was t here a time when you were not able to pay the mortgage or rent on time? No 03/11/2025 In the past 12 months, how m any times have you moved where you were living? 0 03/11/2025 At any time in the past 12 m [facility], were you homeless or living in a penitentiary (including now)? No 03/11/2025 Sex and Gender Information Value Date Recorded Sex Assigned at Male 03/10/2025 5:28 PM EDT Legal Sex Male 1:50 PM EDT Gender Identity Male 03/10/2025 5:28 PM EDT Sexual Orientation Heterosexual (straight) 03/10 5:28 PM EDT Last Filed Vital Signs Vital Sign Reading Time Taken Comments Blood Pressure 144/67 03/11/2025 3:59 PM EDT Pulse 89 03/11/2025 3:59 PM EDT Temperature 36.3 C (97.4 F) 03/11/2025 3:59 PM EDT Respiratory Rate 20 03/11/2025 3:59 PM EDT Oxygen Saturation 96% 03/11/2025 2:16 PM EDT Inhaled Oxygen Concentration - - Weight 230 kg (508 lb) 03/10/2025 5:15 PM EDT Height - - Body Mass Index - - Plan of Treatment Health Maintenance Due Date Last Done Comments Hepatitis C Virus Screening 1989 Foot Exam 1999 Lipid Panel 1999 Ophthalmology Exam 1999 HIV Screening 2002 Microalbumin/Creatinine Ratio Urine 2007 DTaP/Tdap/Td Vaccines (1 - Tdap) 2008 Hepatitis B Vaccines (1 of 3 - 19+ 3-dose series) 2008 Pneumococcal Vaccine: Pediat chris (0-5 Years) and At-Risk Patients (6 to 49 Years) (1 of 2 - PCV) 2008 HPV Vaccines (1 - 3-dose SCDM series) 2016 COVID-19 Vaccine ( season) 2024 Influenza Vaccine 02/22/2025 Hemoglobin A1C 06/11/2025 03/11/2025 Creatinine with GFR 03/11/2026 03/11/2025, Procedures Procedure Name Priority Date/Time Associated Diagnosis Comments POCT GLUCOSE, FINGERSTICK (CHARGE) Routine 03/11/2025 1:12 PM EDT POCT GLUCOSE, FINGERSTICK (CHARGE) Routine 03/11/2025 8:06 AM EDT HEMOGLOBIN A1C WITH ESTIMATED AVERAGE GLUCOSE STAT 03/11/2025 7:17 AM EDT MAGNESIUM STAT 03/11/2025 7:17 AM EDT BASIC METABOLIC PANEL STAT 03/11/2025 7:17 AM EDT COMPLETE BLOOD COUNT, WITH DIFFERENTIAL STAT 03/11/2025 7:17 AM EDT LACTIC ACID, PLASMA Routine 03/10/2025 1 0:46 PM EDT BLOOD CULTURE (HOSP LAB) STAT 03/10/2025 8:22 PM EDT LACTIC ACID, PLASMA Timed 03/10/2025 8 :20 PM EDT CTA CHEST FOR P.E. STAT 03/10/2025 7: 12 PM EDT HIGH SENSITIVITY TROPONIN T Routine 03/10/2025 5:39 PM EDT ED PERFORMED US CARDIAC LIMITED STAT 03/10/2025 5:26 PM EDT Chest pain, unspecified ECG 12-LEAD STAT 03/10/2025 5:09 PM EDT PROBNP, N-TERMINAL STAT 03/10/2025 4: 48 PM EDT HIGH SENSITIVITY TROPONIN T CARD 03/10/2025 4:48 PM EDT COMPREHENSIVE METABOLIC PANEL STAT 03/10/2025 4:48 PM EDT COMPLETE BLOOD COUNT, WITH DIFFERENTIAL STAT 03/10/2025 4:48 PM EDT from Last 3 Months Results * (ABNORMAL) POCT Glucose, Fingerstick (03/11/2025 1:12 PM EDT) Only the most recent of2 resultswithin the time period is included. [facility] POC Glucose 235(H) 65 - 99 mg/dL 03/11/2025 1:16 PM EDT Blood specimen / Unknown 03/11/2025 1:12 PM EDT 03/11/2025 1:16 PM EDT Arnold He MD POINT OF CARE TEST ORDERABLES Fi nal Result HOSPITAL LAB See Below * (ABNORMAL) Hemoglobin A1c with Estimated Average Glucose (03/11/2025 7:17 AM EDT) Hemoglobin A1C 8.2(H) <5.7 % 03/11/2025 8:28 AM EDT [facility] Comment: A1c% Interpretation 5.7 - 6.0 Increase risk of diabetes 6.1 - 6.4 Higher risk of diabetes > or = 6.5 Consistent with diabetes Diabetes Care, 33(Supp 1):S1-S61, 2010 Estimated Average Glucose 189 mg/dL 03/11/2025 8:28 AM EDT [facility] Blood Blood specimen / Unknown 03/11/2025 7:17 AM EDT 03/11/2025 7:49 AM EDT Mayte Shaikh MD LAB BLOOD ORDERABLES Final Resul t Performing Organization Address City/[facility]/[place] [address], [place] [address] * (ABNORMAL) Complete Blood Count, with Differential (03/11/2025 7:17 AM EDT) Only the most recent of2 resultswithin the time period is included. White Blood Cell Count 8.3 4.0 - 11.0 Thou/uL 03/11/2025 8:00 AM EDT [facility] Platelet Count 258 150 - 450 Thou/uL 03/11/2025 8:00 AM EDT [facility] Hemoglobin 12.8(L) 13.0 - 17.7 g/dL 03/11/2025 8:00 AM EDT [facility] Hematocrit 38.3(L) 39.0 - 54.0 % 03/11/2025 8:00 AM [facility] Red Blood Cell Count 4.40(L) 4.50 - 6.20 Mil/uL 03/11/2025 8:00 AM [facility] MCV 87 80 - 100 fL 03/11/2025 8:00 AM [facility] MCH 29.1 26.0 - 34.0 pg 03/11/2025 8:00 AM [facility] MCHC 33.4 30.0 - 36.0 g/dL 03/11/2025 8:00 AM [facility] RDW 12.7 11.5 - 14.5 % 03/11/2025 8:00 AM [facility] MPV 9.8 7.5 - 12.5 fL 03/11/2025 8:00 AM [facility] Neutrophils Auto 55.7 % 03/11/20 8:00 AM [facility] Immature Granulocytes 1.0 % 03/11/2025 8:00 AM [facility] Lymphocytes Auto 23.1 % 03/11/20 8:00 AM [facility] Monocytes Auto 12.3 % 03/11/2025 8:00 AM [facility] Eosinophils Auto 7.4 % 03/11/20 8:00 AM [facility] Basophils Auto 0.5 % 03/11/2025 8:00 AM [facility] Abs Neutrophils Auto 4.60 2.00 - 7.50 Thou/uL 03/11/2025 8:00 AM [facility] Abs Immature Granulocytes 0.08 0.00 - 0.10 Thou/uL 03/11/2025 8:00 AM [facility] Abs Lymphocytes Auto 1.91 1.50 - 4.50 Thou/uL 03/11/2025 8:00 AM [facility] Abs Monocytes Auto 1.02 0.20 - 1.50 Thou/uL 03/11/2025 8:00 AM [facility] Abs Eosinophils Auto 0.61 0.00 - 0.70 Thou/uL 03/11/2025 8:00 AM [facility] Abs Basophils Auto 0.04 0.00 - 0.20 Thou/uL 03/11/2025 8:00 AM [facility] Blood Blood specimen / Unknown 03/11/2025 7:17 AM EDT 03/11/2025 7:49 AM EDT us Mayte Shaikh MD LAB BLOOD ORDERABLES Final Resul t Performing Organization Address City/[facility] [place] [address], [place] [address] * Magnesium (03/11/2025 7:17 AM EDT) Magnesium 1.9 1.6 - 2.7 mg/dL 03/11/2025 8:28 AM EDT [facility] Blood Blood specimen / Unknown 03/11/2025 7:17 AM EDT 03/11/2025 7:49 AM EDT us Mayte Shaikh MD LAB BLOOD ORDERABLES Final Resul t Performing Organization Address City/[facility] [place] [address], [address] [address] * (ABNORMAL) Basic Metabolic Panel (03/11/2025 7:17 AM EDT) Glucose 215(H) 65 - 99 mg/dL 03/11/2025 8:28 AM T [facility] Comment:Fasting: <100 mg/dL, Non-Fasting: <200 mg/dL (ADA 2005) Blood Urea Nitrogen (BUN) 9 8 - 21 mg/dL 03/11/2025 8:28 AM T [facility] Creatinine 0.8 0.5 - 1.3 mg/dL 03/11/2025 8:28 AM [facility] eGFR >90 >59 03/11/2025 8:28 AM [facility] Comment:CKD-EPI (2020) in mL /min/1.73 sq meters. Sodium 134(L) 136 - 145 mmol/L 03/11/2025 8:28 AM T [facility] Potassium 3.8 3.4 - 5.3 mmol/L 03/11/2025 8:28 AM EDT [facility] Comment:Specimen hemolyzed. Results may be artifactually elevated. Chloride 99 98 - 107 mmol/L 03/11/2025 8:28 AM EDT [facility] CO2 22 22 - 33 mmol/L 03/11/2025 8:28 AM EDT [facility] Anion Gap 13 7 - 17 03/11/2025 8:28 AM EDT [facility] Calcium 9.2 8.7 - 10.5 mg/dL 03/11/2025 8:28 AM EDT [facility] BUN/Creatinine Ratio 11 10.0 - 25.0 Ratio 03/11/2025 8:28 AM EDT [facility] Blood Blood specimen / Unknown 03/11/2025 7:17 AM EDT 03/11/2025 7:49 AM EDT Mayte Shaikh MD LAB BLOOD ORDERABLES Final Resul t Performing Organization Address City/[facility] [place] [address], [place] [address] * LACTIC ACID, PLASMA (03/10/2025 10:46 PM EDT) Only the most recent of2 resultswithin the time period is included. Lactic Acid 1.1 0.5 - 1.9 mmol/L 03/10/2025 11:39 PM EDT [facility] 03/10/2025 10:4 6 PM EDT 03/10/2025 11:18 PM EDT Arnold He MD LAB BLOOD ORDERABLES Final Resul t Performing Organization Address City/[facility]/[place] [address], [place] [address] * Blood Culture (03/10/2025 8:22 PM EDT) Culture Sterile after 5 days 03/15/2025 7:47 AM EDT [facility] Blood Blood specimen / Unknown 03/10/2025 8:22 PM EDT 03/10/2025 9:28 PM EDT Comment:Blood us Arnold He MD LAB BLOOD ORDERABLES Final Resul t [facility] [address] [place] [address], [place] * CTA Chest for P.E. (03/10/2025 7:12 PM EDT) Anatomical Region Laterality Modality Chest Computed Tomogra phy 03/10/2025 6:48 PM EDT Impressions 03/10/2025 7:[address] angiographic evidence of acute pulmonary embolism. 2. Focal airspace consolidation within the posteroinferior aspect of the right middle lobe, which could represent focal pneumonia. 3. Partially visualized hepatomegaly and steatosis. Partially visualized splenomegaly. VTE: Negative. Narrative 03/10/2025 7:35 PM EDT EXAMINATION: CT ANGIOGRAM OF THE CHEST WITH AND WITHOUT CONTRAST (CT PULMONARY ANGIOGRAM FOR PE) CLINICAL INFORMATION: Pleuritic left-sided CP, dyspnea, elevated dimer. COMPARISON: No relevant prior studies are available for comparison. TECHNIQUE: Prior to contrast administration, noncontrast localization images were obtained. Subsequently, multidetector volumetric imaging was performed from the thoracic inlet to below the diaphragms following the administration of 80 mL Omnipaque 350 intravenous contrast during the pulmonary arterial phase of enhancement. No contrast reaction reported Sagittal, coronal, and MIP oblique sagittal reformatted images were obtained on the CT workstation, uploaded to PACS, and reviewed. This CT examination was performed using dose optimization techniques as appropriate, variously including the following: *Automated exposure control *Adjustment of mA and/or kV according to patient size (this includes techniques or standardized protocols for targeted exams where dose is matched to indication/reason for exam; i.e. extremities or head) *Use of iterative reconstruction technique Total exam dose-length product 831.68 mGy-cm FINDINGS: QUALITY OF STUDY/CONTRAST BOLUS: Satisfactory. PULMONARY ARTERIES: No pulmonary emboli. THORACIC AORTA: No aneurysm. LUNG: Focal airspace consolidation within the posteroinferior aspect of the right middle lobe, which could represent focal pneumonia. No additional airspace consolidation. No pulmonary nodule or mass. The central airways are patent. PLEURA: No pleural effusion or pneumothorax. MEDIASTINUM: Normal heart size. No pericardial effusion. No hilar or mediastinal lymphadenopathy. No evidence of septal bowing or right heart strain. CORONARY ARTERY CALCIFICATION: None visualized on this study. CHEST WALL/AXILLA: No axillary or internal mammary lymphadenopathy. OSSEOUS STRUCTURES: No acute or suspicious osseous abnormality. UPPER ABDOMEN: Partially visualized hepatomegaly and steatosis. Partially visualized splenomegaly. No reflux of contrast into the hepatic veins to suggest elevated right heart pressures. Procedure Note Norman Fontaine MD - 03/10/2025 EXAMINATION: CT ANGIOGRAM OF THE CHEST WITH AND WITHOUT CONTRAST (CT PULMONARY ANGIOGRAM FOR PE) CLINICAL INFORMATION: Pleuritic left-sided CP, dyspnea, elevated dimer. COMPARISON: No relevant prior studies are available for comparison. TECHNIQUE: Prior to contrast administration, noncontrast localization images were obtained. Subsequently, multidetector volumetric imaging was performed from the thoracic inlet to below the diaphragms following the administration of 80 mL Omnipaque 350 intravenous contrast during the pulmonary arterial phase of enhancement. No contrast reaction reported Sagittal, coronal, and MIP oblique sagittal reformatted images were obtained on the CT workstation, uploaded to PACS, and reviewed. This CT examination was performed using dose optimization techniques as appropriate, variously including the following: *Automated exposure control *Adjustment of mA and/or kV according to patient size (this includes techniques or standardized protocols for targeted exams where dose is matched to indication/reason for exam; i.e. extremities or head) *Use of iterative reconstruction technique Total exam dose-length product 831.68 mGy-cm FINDINGS: QUALITY OF STUDY/CONTRAST BOLUS: Satisfactory. PULMONARY ARTERIES: No pulmonary emboli. THORACIC AORTA: No aneurysm. LUNG: Focal airspace consolidation within the posteroinferior aspect of the right middle lobe, which could represent focal pneumonia. No additional airspace consolidation. No pulmonary nodule or mass. The central airways are patent. PLEURA: No pleural effusion or pneumothorax. MEDIASTINUM: Normal heart size. No pericardial effusion. No hilar or mediastinal lymphadenopathy. No evidence of septal bowing or right heart strain. CORONARY ARTERY CALCIFICATION: None visualized on this study. CHEST WALL/AXILLA: No axillary or internal mammary lymphadenopathy. OSSEOUS STRUCTURES: No acute or suspicious osseous abnormality. UPPER ABDOMEN: Partially visualized hepatomegaly and steatosis. Partially visualized splenomegaly. No reflux of contrast into the hepatic veins to suggest elevated right heart pressures. IMPRESSION: 1. No CT angiographic evidence of acute pulmonary embolism. 2. Focal airspace consolidation within the posteroinferior aspect of the right middle lobe, which could represent focal pneumonia. 3. Partially visualized hepatomegaly and steatosis. Partially visualized splenomegaly. VTE: Negative. us Franky Castañeda PA-C IMG CT ORDERABLES Final Resu lt * High Sensitivity Troponin T (03/10/2025 5:39 PM EDT) Only the most recent of2 resultswithin the time period is included. High Sensitivity Troponin T <6 <23 ng/L 03/10/2025 6:49 PM EDT [facility] Delta (Change) NO CHANGE <3 03/10/2025 6:49 PM EDT [facility] 03/10/2025 5:39 PM EDT 03/10/2025 6:15 PM EDT us Franky Castañeda PA-C LAB BLOOD ORDERABLES Final R esult Performing Organization Address City/State/[facility] Co de Phone Number [address] [address], [address] [address] * Ed Performed Us [facility] (03/10/2025 5:26 PM EDT) Anatomical Region Laterality Modality Ultrasound 03/10/2025 5:05 PM EDT Narrative 03/10/2025 7:15 PM EDT Cardiac ( ED) Exam Information: Exam Category: Diagnostic (Jannie) Exam Occurrence: Initial exam Indication(s) for Exam: Chest Pain, Dyspnea Views Obtained: Parasternal long-axis, Parasternal short-axis, Apical 4-chamber Findings and Interpretation: Cardiac Activity: Present Pericardium: No pericardial effusion LV function (estimated EF): Normal (50-70% EF) RV: Normal Medical Decision Making: All focused emergency ultrasounds are limited exams. Comprehensive studies should be obtained for further evaluation as clinically indicated. 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 Comprehensive studies should be obtained for further evaluation asclinically indicated. Attending Signature: I have personally performed or supervised theperformance of the ultrasound, reviewed the images as archived, and agreewith the findings and impression as documented Electronically signed by Arnold He on Monday, March 10, 2025 at 7:15PM us Arnold He MD IMG US ORDERABLES Final Result * ECG 12 lead (03/10/2025 5:09 PM EDT) Ventricular rate 99 BPM EKG [facility] Atrial rate 99 BPM EKG [facility] P-R interval 148 ms EKG [facility] QRS duration 82 ms EKG [facility] Q-T interval 320 ms EKG [facility] QTC calculation (Bazett) 411 ms EKG [facility] P axis 48 degrees EKG [facility] R axis 62 degrees EKG [facility] T axis 21 degrees EKG [facility] 03/10/2025 5:09 PM EDT Narrative EKG [facility] - 03/10/2025 9:10 PM EDT Normal sinus rhythm Normal ECG No previous ECGs available Confirmed by DO Serrano Kyla ([id number]) on 03/10/2025 9:10:30 PM Procedure Note Genevieve Serrano DO - 03/10/2025 Normal sinus rhythm Normal ECG No previous ECGs available Confirmed by DO Serrano Kyla ([id number]) on 03/10/2025 9:10:30 PM Franky Castañeda PA-C ECG ORDERABLES Final Result Performing Organization Address City/[facility]/ZIP Co de Phone Number EKG [facility] * proBNP, N-terminal (BNP) (03/10/2025 4:48 PM EDT) proBNP, N-terminal 39 <125 pg/mL 03/10/2025 5:47 PM EDT [facility] Blood Blood specimen / Unknown 03/10/2025 4:48 PM EDT 03/10/2025 4:55 PM EDT Franky Castañeda PA-C LAB BLOOD ORDERABLES Final R esult Performing Organization Address [facility] Co de Phone Number [address] [address], [address] [address] * (ABNORMAL) Comprehensive Metabolic Panel (03/10/2025 4:48 PM EDT) Glucose 228(H) 65 - 99 mg/dL 03/10/2025 5:47 PM EDT [facility] Comment:Fasting: <100 mg/dL, Non-Fasting: <200 mg/dL (ADA 2004) Blood Urea Nitrogen (BUN) 10 8 - 21 mg/dL 03/10/2025 5:47 PM EDT [facility] Creatinine 0.9 0.5 - 1.3 mg/dL 03/10/2025 5:47 PM EDT [facility] eGFR >90 >59 03/10/2025 5:47 PM EDT [facility] Comment:CKD-EPI (2020) in mL /min/1.73 sq meters. Sodium 136 136 - 145 mmol/L 03/10/2025 5:47 PM EDT [facility] Potassium 4.1 3.4 - 5.3 mmol/L 03/10/2025 5:47 PM EDT [facility] Chloride 97(L) 98 - 107 mmol/L 03/10/2025 5:47 PM EDT [facility] CO2 23 22 - 33 mmol/L 03/10/2025 5:47 PM EDT [facility] Calcium 9.8 8.7 - 10.5 mg/dL 03/10/2025 5:47 PM [facility] Alkaline Phosphatase 65 45 - 128 U/L 03/10/2025 5:47 PM EDT [facility] Aspartate Aminotrans (AST) 47 10 - 55 U/L 03/10/2025 5:47 PM EDT [facility] Alanine Aminotrans (ALT) 23 10 - 55 U/L 03/10/2025 5:47 PM EDT [facility] Bilirubin, Total 0.6 0.2 - 1.0 mg/dL 03/10/2025 5:47 PM EDT [facility] Protein, Total 7.4 6.3 - 8.3 g/dL 03/10/2025 5:47 PM EDT [facility] Albumin 3.6 3.5 - 5.0 g/dL 03/10/2025 5:47 PM [facility] BUN/Creatinine Ratio 11 10.0 - 25.0 Ratio 03/10/2025 5:47 PM [facility] Globulin 3.8 1.5 - 3.9 g/dL 03/10/2025 5:47 PM [facility] Albumin/Globulin Ratio 0.9(L) 1.0 - 3.0 Ratio 03/10/2025 5:47 PM [facility] Anion Gap 16 7 - 17 03/10/2025 5:47 PM [facility] Blood Blood specimen / Unknown 03/10/2025 4:48 PM EDT 03/10/2025 4:55 PM EDT us Franky Castañeda PA-C LAB BLOOD ORDERABLES Final R esult [facility] [address] [place] [address], [facility] [address] [place] [address] from Last 3 Months Insurance [facility] [id number] Advance Directives * Full Code (Latest Code Status on File) Date Activated Date Inactivated Comments 03/10/2025 9:30 PM Care Teams Jewel Bearing Turner Relationship Specialty Start Date End Date Emily Jurado PA-C [address] [place] [address] PCP - General 03/11/25
--- OUTSIDE RECORDS SUMMARY | 2025-03-19 08:38 | XMS_ITS | Encounter Summary ---
Author Organization [facility] Address [address] [place] [address] Phone Care Team Providers Care Medical Reception Specialist Name Role Phone Monty De Los Santos MD Primary Care Provider Dane morillo Encounter Details Date Type Department Care Team (Late st Contact Info) Description 03/10/2017 Conversion Encounter [facility] - [address] [address] Social History Tobacco Use Types Packs/Day Years [...] on filedocumented in this encounter Care Teams Medical Reception Specialist Relationship Specialty Start Date End Date Monty De Los Santos MD PCP - General 03/04/17 09/09/22 documented as of this encounter
--- OUTSIDE RECORDS SUMMARY | 2025-03-19 08:38 | XMS_ITS | Clinical Summary ---
Author Organization [address] [facility] Address [address] [place] [address] Phone Care Team Providers Care Fish Icer Name Role Phone Emily Jurado Primary Care Provider [phone] Social History Tobacco Use Types Packs/Day Years Used Date Smoking Tobacco: Never Assessed Sex and Gender Information Value Date Recorded Sex Assigned at Not on file Legal Sex Male 10:45 AM EDT Gender Identity Not on file Sexual Orientation Not on file Plan of Treatment Upcoming Encounters Date Type Department Care Team ([facility] Contact Info) Description 04/24/2025 9:00 AM EDT Consult Orthopedic Surgery - [place] [address] [facility] [address] [place] [phone] Eugene Jones, DPJan [address] [place] [phone] Health Maintenance Due Date Last Done Comments DTaP,Tdap,and Td Vaccines (1 - Tdap) 2008 Hepatitis B Vaccines (1 of 3 - 19+ 3-dose series) 2008 Pneumococcal Vaccine: Pediat rics (0 to 5 Years) and At-Risk Patients (6 to 49 Years) (1 of 2 - PCV) 2008 COVID-19 Vaccine (2023-2 5 season) 2024 Depression Screening 07/25/2024 Cholesterol Screening (Lipid Panel) 12/01/2024 HIV Screening 12/01/2024 Hepatitis C Screening [...] complete this topic Insurance [place] Member Subscriber Plan / Payer (Ef fective 2024-Present) Name:SANJEEV HOWARD Relation to Subscriber:Self Name:Jaci Sanjeev Payer ID:[id number] Group ID:Not on file Type:Not on file Address: [facility] ATTN:CLAIMS [address] [place] [phone] [place] [address] [address] [place] [address] Care Teams Fish Icer Relationship Specialty Start Date End Date Emily Jurado PA [address] [facility], [address] [place] [address] PCP - General 12/01/24
--- OUTSIDE RECORDS SUMMARY | 2025-03-19 08:38 | XMS_ITS | Encounter Summary ---
Author Organization [facility] Address [address] [place] [address] Phone Care Team Providers Care [employer] Miner Name Role Phone Monty De Los Santos MD Primary Care Provider Dane morillo Encounter Details Date Type Department Care Team (Late st Contact Info) Description 03/02/2011 Documentation [facility] [address] [place], [place] [phone] Family Medicine, Physician [address] [place] [address] Social History Tobacco Use Types Packs/Day Years [...] on filedocumented in this encounter Care Teams [employer] Miner Relationship Specialty Start Date End Date Monty De Los Santos MD PCP - General 03/04/17 09/09/22 documented as of this encounter
--- OUTSIDE RECORDS SUMMARY | 2025-03-19 08:38 | XMS_ITS ---
Author Name [facility] Organization Unknown Results Test Name/Text Value Interpretation Date Range Source POC Glucose 235.0 mg/dL Above high normal 03/11/2025 65 - 99 [facility] POC Glucose 208.0 mg/dL Above high normal 03/11/2025 65 - 99 [facility] Magnesium SerPl-mCnc 1.9 mg/dL 03/11/2025 1.6 - 2. 7 [facility] Anion Gap Bld-sCnc 13.0 03/11/2025 7 - 17 [facility] BUN/Creat SerPl 11.0 Ratio 03/11/2025 10 - 25 HH CCT Glucose SerPl-mCnc 215.0 mg/dL Above high normal 03/11/2025 65 - 99 [facility] Chloride SerPl-sCnc 99.0 mmol/L 03/11/2025 98 - 10 7 [facility] Creat SerPl-mCnc 0.8 mg/dL 03/11/2025 0.5 - 1.3 HH CCT BUN SerPl-mCnc 9.0 mg/dL 03/11/2025 8 - 21 HHCC T Potassium SerPl-sCnc 3.8 mmol/L 03/11/2025 3.4 - 5 .3 [facility] Calcium SerPl-mCnc 9.2 mg/dL 03/11/2025 8.7 - 10.5 H[facility] CO2 SerPl-sCnc 22.0 mmol/L 03/11/2025 22 - 33 HH CCT GFR/BSA.pred SerPlBld [id number] >90.0 03/11/2025 59 - H[facility]CT Sodium SerPl-sCnc 134.0 mmol/L Below low normal 03/11/2025 1 36 - 145 [facility] Est. average glucose Bld gHb Est-mCnc 189.0 mg/dL 03/11/2025 [facility] Hgb A1c MFr Bld 8.2 % Above high normal 03/11/2025 - 5.7 [facility] Lymphocytes/leuk NFr Bld Auto 23.1 % 03/11/2025 H[facility]CT MCHC RBC Auto-mCnc 33.4 g/dL 03/11/2025 30 - 36 [facility] Imm Granulocytes num Bld Auto 0.08 Thou/uL 03/11/2025 0 - 0.1 [facility] Neutrophils num Bld Auto 4.6 Thou/uL 03/11/2025 2 - 7.5 [facility] Platelet num Bld Auto 258.0 Thou/uL 03/11/2025 150 - 450 [facility] Monocytes/leuk NFr Bld Auto 12.3 % 03/11/2025 [facility] Imm Granulocytes/leuk NFr Bld Auto 1.0 % 03/11/2025 [facility] MCV RBC Auto 87.0 fL 03/11/2025 80 - 100 [facility] Monocytes num Bld Auto 1.02 Thou/uL 03/11/2025 0.2 - 1.5 [facility]CT WBC num Bld Auto 8.3 Thou/uL 03/11/2025 4 - 11 [facility] Hgb Bld-mCnc 12.8 g/dL Below low normal 03/11/2025 13 - 17.7 [facility]CT Lymphocytes num Bld Auto 1.91 Thou/uL 03/11/2025 1.5 - 4.5 H[facility] PMV Bld Auto 9.8 fL 03/11/2025 7.5 - 12.5 [facility] Basophils/leuk NFr Bld Auto 0.5 % 03/11/2025 [facility] RDW RBC Auto-Rto 12.7 % 03/11/2025 11.5 - 14.5 [facility] Basophils num Bld Auto 0.04 Thou/uL 03/11/2025 0 - 0.2 [facility]CT Eosinophil num Bld Auto 0.61 Thou/uL 03/11/2025 0 - 0.7 H[facility]CT Hct VFr Bld Auto 38.3 % Below low normal 03/11/2025 39 - 54 [facility]CT MCH RBC Qn Auto 29.1 pg 03/11/2025 26 - [address] Neutrophils/leuk NFr Bld Auto 55.7 % 03/11/2025 [facility] Eosinophil/leuk NFr Bld Auto 7.4 % 03/11/2025 [facility] RBC num Bld Auto 4.4 Mil/uL Below low normal 03/11/2025 4.5 - 6.2 [facility]CT Lactate SerPl-sCnc 1.1 mmol/L 03/11/2025 0.5 - 1.9 [facility]CT Lactate SerPl-sCnc 1.7 mmol/L 03/11/2025 0.5 - 1.9 [facility]CT Troponin T SerPl-mCnc <6.0 ng/L 03/10/2025 - H[facility] Delta NO CHANGE 03/10/2025 - [facility] Delta NO PREVIOUS RESULT 03/10/2025 - 3 [facility] Troponin T SerPl-mCnc <6.0 ng/L 03/10/2025 - H[facility]CT BUN SerPl-mCnc 10.0 mg/dL 03/10/2025 8 - [address] Albumin SerPl-mCnc 3.6 g/dL 03/10/2025 3.5 - 5 H[facility]CT ALT SerPl-cCnc 23.0 U/L 03/10/2025 10 - 55 [facility] T Glucose SerPl-mCnc 228.0 mg/dL Above high normal 03/10/2025 65 - 99 [facility]CT Bilirub SerPl-mCnc 0.6 mg/dL 03/10/2025 0.2 - 1 [facility]CT Potassium SerPl-sCnc 4.1 mmol/L 03/10/2025 3.4 - 5 .3 [facility] Anion Gap Bld-sCnc 16.0 03/10/2025 7 - 17 H[facility]CT CO2 SerPl-sCnc 23.0 mmol/L 03/10/2025 22 - 33 HH CCT GFR/BSA.pred SerPlBld [id number] >90.0 03/10/2025 59 - HHCCT Prot SerPl-mCnc 7.4 g/dL 03/10/2025 6.3 - 8.[address] Chloride SerPl-sCnc 97.0 mmol/L Below low normal 03/10/2025 98 - 107 HHCCT AST SerPl-cCnc 47.0 U/L 03/10/2025 10 - 55 HHCC T Calcium SerPl-mCnc 9.8 mg/dL 03/10/2025 8.7 - 10.5 H[facility]CT Globulin Ser Calc-mCnc 3.8 g/dL 03/10/2025 1.5 - 3.9 HHCCT ALP SerPl-cCnc 65.0 U/L 03/10/2025 45 - 128 HHCC T Albumin/Glob SerPl 0.9 Ratio Below low normal 03/10/2025 1 - 3 H[facility]CT Creat SerPl-mCnc 0.9 mg/dL 03/10/2025 0.5 - 1.3 HH CCT Sodium SerPl-sCnc 136.0 mmol/L 03/10/2025 136 - 14 5 H[facility]CT BUN/Creat SerPl 11.0 Ratio 03/10/2025 10 - 25 HH CCT pro BNP, N-terminal 39.0 pg/mL 03/10/2025 - 125 H[facility]CT RDW RBC Auto-Rto 12.6 % 03/10/2025 11.5 - 14.5 H[facility]CT Platelet num Bld Auto 258.0 Thou/uL 03/10/2025 150 - 450 H[facility]CT Eosinophil num Bld Auto 0.53 Thou/uL 03/10/2025 0 - 0.7 HHCCT PMV Bld Auto 9.5 fL 03/10/2025 7.5 - 12.5 H[facility]CT Imm Granulocytes/leuk NFr Bld Auto 1.0 % 03/10/2025 H[facility]CT Lymphocytes num Bld Auto 1.54 Thou/uL 03/10/2025 1.5 - 4.5 H[facility]CT Neutrophils/leuk NFr Bld Auto 67.5 % 03/10/2025 HHCCT MCV RBC Auto 88.0 fL 03/10/2025 80 - 100 H[facility]CT Hgb Bld-mCnc 14.3 g/dL 03/10/2025 13 - 17.7 H[facility]CT Monocytes num Bld Auto 1.1 Thou/uL 03/10/2025 0.2 - 1.5 H[facility]CT Lymphocytes/leuk NFr Bld Auto 15.0 % 03/10/2025 HHCCT RBC num Bld Auto 4.85 Mil/uL 03/10/2025 4.5 - 6.2 HHCCT Imm Granulocytes num Bld Auto 0.1 Thou/uL 03/10/2025 0 - 0.1 HHCCT WBC num Bld Auto 10.3 Thou/uL 03/10/2025 4 - 11 H[facility]CT Monocytes/leuk NFr Bld Auto 10.7 % 03/10/2025 HHCCT Basophils num Bld Auto 0.06 Thou/uL 03/10/2025 0 - 0.2 HHCCT MCHC RBC Auto-mCnc 33.6 g/dL 03/10/2025 30 - 36 H[facility]CT Basophils/leuk NFr Bld Auto 0.6 % 03/10/2025 HHCCT Neutrophils num Bld Auto 6.92 Thou/uL 03/10/2025 2 - 7.5 HHCCT Eosinophil/leuk NFr Bld Auto 5.2 % 03/10/2025 HHCCT MCH RBC Qn Auto 29.5 pg 03/10/2025 26 - [address] Hct VFr Bld Auto 42.5 % 03/10/2025 39 - 54 HH CCT Encounters Encounter Type Encounter Reason Primary Diagnosis Location Date Inpatient Shortness of breath Shortness of breath [facility] 03/10/2025 Care Team Organization Name Specialty Phone Email Start Date End [facility] 03/16/2025 [facility] 03/10/2025
--- OUTSIDE RECORDS SUMMARY | 2025-03-19 08:38 | XMS_ITS | Clinical Summary ---
Author Organization [facility] Address [address] [place] [address] Phone Care Team Providers Care Food Counselor Name Role Phone Unavailable Primary Care Provider [...] of 2 - 13+ 2-dose series) 2002 HPV Vaccines (1 - 3-dose SCDM series) 2016 COVID-19 Vaccine (1 - 2023- season) 2024 Influenza Vaccines (#1) 2025 HIB Vaccines Completed 11/22/1990 IPV Vaccines Completed 12/23/1994, 05/0 07/1990, 1989, Additional history exists MMR Vaccines Completed 12/23/1994, 11/22/1990 Hepatitis B Vaccines Completed 03/07/2002, 09/15/2001, 06/20/2001 Hepatitis A Vaccines Aged Out No long [...]
[2025-03-19 08:48] LABS: Glucose, Whole Blood 160 mg/dL (60-115)
== END 2025-03-19 09:05 | disposition home or self-care (01) ==
LOC: HO.ENCR 08:26
PROVIDERS: Visit Provider Physician Assistant Medical
DX: E11.69 Type 2 diabetes mellitus with other specified complication (principal); E66.01 Morbid (severe) obesity due to excess calories; R79.89 Other specified abnormal findings of blood chemistry

== ENCOUNTER → 2025-03-19 08:25 | Outpatient (BNVA) | payer OTHER, MEDICAID, SELFPAY | PROVIDERS: Visit Provider Physician Assistant Medical | DX: E11.69 Type 2 diabetes mellitus with other specified complication (principal); E66.01 Morbid (severe) obesity due to excess calories; R79.89 Other specified abnormal findings of blood chemistry; Z68.45 Body mass index [BMI] 70 or greater, adult; Z79.85 Long-term (current) use of injectable non-insulin antidiabetic drugs | CPT/HCPCS: 82947; 83036 ==

== ENCOUNTER 2025-03-19 09:13 | Outpatient (REF) | payer OTHER, MEDICAID, SELFPAY ==
[2025-03-19 11:31] LABS: Alanine Aminotransferase 34 U/L (0-40); Aspartate Amino Transferase 42 U/L (5-37)
[2025-03-19 11:55] LABS: HBS Num1 > 1000.00 mIU/mL (0-7.99); HBc Num1 0.08 S/CO (0.00-0.79); HBsAGNum1 0.37 S/CO (0.00-0.99); Hepatitis A Antibody IgM 0.18 Index (0-0.79); Hepatitis B Surface Antigen Negative (Negative); ~HepC Num1 0.12 S/CO (0.00-0.79); ~Hepatitis A Antibody IgM Nonreactive (Nonreactive); ~Hepatitis B Surface Antibody REACTIVE (Nonreactive); ~Hepatitis C Antibody Nonreactive (Nonreactive)
[2025-03-19 11:57] LABS: Hepatitis A Antibody IgM 0.20 Index (0-0.79); ~Hepatitis A Antibody IgM Nonreactive (Nonreactive)
== END 2025-03-19 09:14 | disposition home or self-care (01) ==
LOC: HO.10HDL 09:13
PROVIDERS: Visit Provider Physician Assistant Medical
DX: Z11.59 Encounter for screening for other viral diseases (principal); R79.89 Other specified abnormal findings of blood chemistry
CPT/HCPCS: 36415; 84450; 84460; 86704; 86706; 86709; 86803; 87340

== ENCOUNTER 2025-04-01 15:26 | Outpatient (AMB) | payer OTHER, MEDICAID, SELFPAY ==
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
--- OUTSIDE RECORDS SUMMARY | 2025-04-01 18:27 | XMS_ITS | Clinical Summary ---
Author Organization [facility] Address [address] [place] [address] Phone Care Team Providers Care Medical Secretary Teacher Name Role Phone Unavailable Primary Care Provider [...] Vaccines (1 - 3-dose SCDM series) 2016 Influenza Vaccines (#1) 2025 COVID-19 Vaccine ( - season) 2025 HIB Vaccines Completed 11/22/1990 IPV Vaccines [...]
--- OUTSIDE RECORDS SUMMARY | 2025-04-01 18:27 | XMS_ITS | Clinical Summary ---
Author Organization [facility] Address [address] [place] [address] Care Team Providers Care Emergency Management Coordinator Name Role Phone Emily Jurado PA-C Primary Care Provider [phone] Allergies Active Allergy Reactions Criticality Noted Date [...] Continuous Glucose Sensor (FreeStyle Desiree 3 Sensor) [facility] [place] EVERY 15 DAYS Active lisinopril (PRINIVIL,ZeST [...] iso morbid obesity. Ultrasound was performed in [facility] of left lower extremity due to numbness [...] iso morbid obesity. Ultrasound was performed in [facility] of left lower extremity due to numbness and tingling. No DVT was definitively seen although vasculature was poorly visualized due to obesity. No PE seen on CTPA. - Will continue gabapentin 300 mg 3 times daily Community acquired pneumonia of right middle lob e of lung 03/10/2025 Assessment & Plan (03/10/2025 9:46 PM EDT): Patient presented as a transfer from [facility] for 7 to 10 days of cough with progressive shortness of breath and fevers. He was initially diagnosed with a viral URI after an x-ray outpatient. He was treated with Augmentin for a possible sinus infection but his symptoms persisted and he was developing worsening shortness of breath. He had an elevated D-dimer at [facility] and was transferred to for CTPA. CTPA [...] iso morbid obesity. Ultrasound was performed in [facility] of left lower extremity due to numbness and tingling. No DVT was definitively seen although vasculature was poorly visualized due to obesity. No PE seen on CTPA. - Will continue gabapentin 300 mg 3 times daily Encounters Date Type Department Care Team Description 03/10/2025 7:20 PM EDT Ancillary Procedure [facility] Emergency Department [address] [place] [address] Arnold He MD 03/10/2025 4:38 PM EDT - 03/11/2025 4:10 PM EDT Hospital Encounter [facility] Emergency Department [address] [place] [address] Arnold He MD Morse, Emily, MD Hamed, [...] Obliteration of lymphatic vessel; Chronic intractable pain; [facility] (current) use of oral hypoglycemic drugs; Long-term current use of injectable noninsulin antidiabetic medication Discharge Disposition: Home or Self Care 03/10/2025 Travel from Last 3 Months Social History Tobacco Use Types Packs/Day Years Used Date Smoking Tobacco: Never Assessed [facility] Utilities Answer Date Recorded In the past 12 months has th e [employer], gas, oil, or water [employer] threatened to shut off services in your [...] any time in the past 12 m [facility], were you homeless or living in a longterm (including now)? No 03/11/2025 Sex and Gender [...] of2 resultswithin the time period is included. [facility] POC Glucose 235(H) 65 - 99 mg/dL 03/11/2025 1:16 PM EDT Blood specimen / Unknown 03/11/2025 1:12 PM EDT 03/11/2025 1:16 PM EDT Arnold He MD POINT OF CARE TEST ORDERABLES Fi nal Result HOSPITAL LAB See Below * (ABNORMAL) Hemoglobin A1c with Estimated Average Glucose (03/11/2025 7:17 AM EDT) Hemoglobin A1C 8.2(H) <5.7 % 03/11/2025 8:28 AM EDT [facility] Comment: A1c% Interpretation 5.7 - 6.0 Increase risk of diabetes 6.1 - 6.4 Higher risk of diabetes > or = 6.5 Consistent with diabetes Diabetes Care, 33(Supp 1):S1-S61, 2010 Estimated Average Glucose 189 mg/dL 03/11/2025 8:28 AM EDT [facility] Blood Blood specimen / Unknown 03/11/2025 7:17 AM EDT 03/11/2025 7:49 AM EDT Mayte Shaikh MD LAB BLOOD ORDERABLES Final Resul t Performing Organization Address City/[facility]/[place] [address], [place] [address] * (ABNORMAL) Complete Blood Count, with Differential (03/11/2025 7:17 AM EDT) Only the most recent of2 resultswithin the time period is included. White Blood Cell Count 8.3 4.0 - 11.0 Thou/uL 03/11/2025 8:00 AM EDT [facility] Platelet Count 258 150 - 450 Thou/uL 03/11/2025 8:00 AM EDT [facility] Hemoglobin 12.8(L) 13.0 - 17.7 g/dL 03/11/2025 8:00 AM EDT [facility] Hematocrit 38.3(L) 39.0 - 54.0 % 03/11/2025 8:00 AM [facility] Red Blood Cell Count 4.40(L) 4.50 - 6.20 Mil/uL 03/11/2025 8:00 AM [facility] MCV 87 80 - 100 fL 03/11/2025 8:00 AM [facility] MCH 29.1 26.0 - 34.0 pg 03/11/2025 8:00 AM [facility] MCHC 33.4 30.0 - 36.0 g/dL 03/11/2025 8:00 AM [facility] RDW 12.7 11.5 - 14.5 % 03/11/2025 8:00 AM [facility] MPV 9.8 7.5 - 12.5 fL 03/11/2025 8:00 AM [facility] Neutrophils Auto 55.7 % 03/11/20 8:00 AM [facility] Immature Granulocytes 1.0 % 03/11/2025 8:00 AM [facility] Lymphocytes Auto 23.1 % 03/11/20 8:00 AM [facility] Monocytes Auto 12.3 % 03/11/2025 8:00 AM [facility] Eosinophils Auto 7.4 % 03/11/20 8:00 AM [facility] Basophils Auto 0.5 % 03/11/2025 8:00 AM [facility] Abs Neutrophils Auto 4.60 2.00 - 7.50 Thou/uL 03/11/2025 8:00 AM [facility] Abs Immature Granulocytes 0.08 0.00 - 0.10 Thou/uL 03/11/2025 8:00 AM [facility] Abs Lymphocytes Auto 1.91 1.50 - 4.50 Thou/uL 03/11/2025 8:00 AM [facility] Abs Monocytes Auto 1.02 0.20 - 1.50 Thou/uL 03/11/2025 8:00 AM [facility] Abs Eosinophils Auto 0.61 0.00 - 0.70 Thou/uL 03/11/2025 8:00 AM [facility] Abs Basophils Auto 0.04 0.00 - 0.20 Thou/uL 03/11/2025 8:00 AM [facility] Blood Blood specimen / Unknown 03/11/2025 7:17 AM EDT 03/11/2025 7:49 AM EDT us Mayte Shaikh MD LAB BLOOD ORDERABLES Final Resul t Performing Organization Address City/[facility] [place] [address], [place] [address] * Magnesium (03/11/2025 7:17 AM EDT) Magnesium 1.9 1.6 - 2.7 mg/dL 03/11/2025 8:28 AM EDT [facility] Blood Blood specimen / Unknown 03/11/2025 7:17 AM EDT 03/11/2025 7:49 AM EDT us Mayte Shaikh MD LAB BLOOD ORDERABLES Final Resul t Performing Organization Address City/[facility] [place] [address], [address] [address] * (ABNORMAL) Basic Metabolic Panel (03/11/2025 7:17 AM EDT) Glucose 215(H) 65 - 99 mg/dL 03/11/2025 8:28 AM T [facility] Comment:Fasting: <100 mg/dL, Non-Fasting: <200 mg/dL (ADA 2005) Blood Urea Nitrogen (BUN) 9 8 - 21 mg/dL 03/11/2025 8:28 AM T [facility] Creatinine 0.8 0.5 - 1.3 mg/dL 03/11/2025 8:28 AM [facility] eGFR >90 >59 03/11/2025 8:28 AM [facility] Comment:CKD-EPI (2020) in mL /min/1.73 sq meters. Sodium 134(L) 136 - 145 mmol/L 03/11/2025 8:28 AM T [facility] Potassium 3.8 3.4 - 5.3 mmol/L 03/11/2025 8:28 AM EDT [facility] Comment:Specimen hemolyzed. Results may be artifactually elevated. Chloride 99 98 - 107 mmol/L 03/11/2025 8:28 AM EDT [facility] CO2 22 22 - 33 mmol/L 03/11/2025 8:28 AM EDT [facility] Anion Gap 13 7 - 17 03/11/2025 8:28 AM EDT [facility] Calcium 9.2 8.7 - 10.5 mg/dL 03/11/2025 8:28 AM EDT [facility] BUN/Creatinine Ratio 11 10.0 - 25.0 Ratio 03/11/2025 8:28 AM EDT [facility] Blood Blood specimen / Unknown 03/11/2025 7:17 AM EDT 03/11/2025 7:49 AM EDT Mayte Shaikh MD LAB BLOOD ORDERABLES Final Resul t Performing Organization Address City/[facility] [place] [address], [place] [address] * LACTIC ACID, PLASMA (03/10/2025 10:46 PM EDT) Only the most recent of2 resultswithin the time period is included. Lactic Acid 1.1 0.5 - 1.9 mmol/L 03/10/2025 11:39 PM EDT [facility] 03/10/2025 10:4 6 PM EDT 03/10/2025 11:18 PM EDT Arnold He MD LAB BLOOD ORDERABLES Final Resul t Performing Organization Address City/[facility]/[place] [address], [place] [address] * Blood Culture (03/10/2025 8:22 PM EDT) Culture Sterile after 5 days 03/15/2025 7:47 AM EDT [facility] Blood Blood specimen / Unknown 03/10/2025 8:22 PM EDT 03/10/2025 9:28 PM EDT Comment:Blood us Arnold He MD LAB BLOOD ORDERABLES Final Resul t [facility] [address] [place] [address], [place] * CTA Chest for P.E. (03/10/2025 [...] <6 <23 ng/L 03/10/2025 6:49 PM EDT [facility] Delta (Change) NO CHANGE <3 03/10/2025 6:49 PM EDT [facility] 03/10/2025 5:39 PM EDT 03/10/2025 6:15 PM EDT us Franky Castañeda PA-C LAB BLOOD ORDERABLES Final R esult Performing Organization Address City/State/[facility] Co de Phone Number [address] [address], [address] [address] * Ed Performed [employer] (03/10/2025 [...] PM EDT) Ventricular rate 99 BPM EKG [facility] Atrial rate 99 BPM EKG [facility] P-R interval 148 ms EKG [facility] QRS duration 82 ms EKG [facility] Q-T interval 320 ms EKG [facility] QTC calculation (Bazett) 411 ms EKG [facility] P axis 48 degrees EKG [facility] R axis 62 degrees EKG [facility] T axis 21 degrees EKG [facility] 03/10/2025 5:09 PM EDT Narrative EKG [facility] - 03/10/2025 9:10 PM EDT Normal sinus rhythm Normal ECG No previous ECGs available Confirmed by DO Serrano Kyla ([id number]) on 03/10/2025 9:10:30 PM Procedure Note Genevieve Serrano DO - 03/10/2025 Normal sinus rhythm Normal ECG No previous ECGs available Confirmed by DO Serrano Kyla ([id number]) on 03/10/2025 9:10:30 PM Franky Castañeda PA-C ECG ORDERABLES Final Result Performing Organization Address City/[facility]/ZIP Co de Phone Number EKG [facility] * proBNP, N-terminal (BNP) (03/10/2025 4:48 PM EDT) proBNP, N-terminal 39 <125 pg/mL 03/10/2025 5:47 PM EDT [facility] Blood Blood specimen / Unknown 03/10/2025 4:48 PM EDT 03/10/2025 4:55 PM EDT Franky Castañeda PA-C LAB BLOOD ORDERABLES Final R esult Performing Organization Address [facility] Co de Phone Number [address] [address], [address] [address] * (ABNORMAL) Comprehensive Metabolic Panel (03/10/2025 4:48 PM EDT) Glucose 228(H) 65 - 99 mg/dL 03/10/2025 5:47 PM EDT [facility] Comment:Fasting: <100 mg/dL, Non-Fasting: <200 mg/dL (ADA 2004) Blood Urea Nitrogen (BUN) 10 8 - 21 mg/dL 03/10/2025 5:47 PM EDT [facility] Creatinine 0.9 0.5 - 1.3 mg/dL 03/10/2025 5:47 PM EDT [facility] eGFR >90 >59 03/10/2025 5:47 PM EDT [facility] Comment:CKD-EPI (2020) in mL /min/1.73 sq meters. Sodium 136 136 - 145 mmol/L 03/10/2025 5:47 PM EDT [facility] Potassium 4.1 3.4 - 5.3 mmol/L 03/10/2025 5:47 PM EDT [facility] Chloride 97(L) 98 - 107 mmol/L 03/10/2025 5:47 PM EDT [facility] CO2 23 22 - 33 mmol/L 03/10/2025 5:47 PM EDT [facility] Calcium 9.8 8.7 - 10.5 mg/dL 03/10/2025 5:47 PM [facility] Alkaline Phosphatase 65 45 - 128 U/L 03/10/2025 5:47 PM EDT [facility] Aspartate Aminotrans (AST) 47 10 - 55 U/L 03/10/2025 5:47 PM EDT [facility] Alanine Aminotrans (ALT) 23 10 - 55 U/L 03/10/2025 5:47 PM EDT [facility] Bilirubin, Total 0.6 0.2 - 1.0 mg/dL 03/10/2025 5:47 PM EDT [facility] Protein, Total 7.4 6.3 - 8.3 g/dL 03/10/2025 5:47 PM EDT [facility] Albumin 3.6 3.5 - 5.0 g/dL 03/10/2025 5:47 PM [facility] BUN/Creatinine Ratio 11 10.0 - 25.0 Ratio 03/10/2025 5:47 PM [facility] Globulin 3.8 1.5 - 3.9 g/dL 03/10/2025 5:47 PM [facility] Albumin/Globulin Ratio 0.9(L) 1.0 - 3.0 Ratio 03/10/2025 5:47 PM [facility] Anion Gap 16 7 - 17 03/10/2025 5:47 PM [facility] Blood Blood specimen / Unknown 03/10/2025 4:48 PM EDT 03/10/2025 4:55 PM EDT us Franky Castañeda PA-C LAB BLOOD ORDERABLES Final R esult [facility] [address] [place] [address], [facility] [address] [place] [address] from Last 3 Months Insurance [facility] [id number] Advance Directives * Full Code (Latest Code Status on File) Date Activated Date Inactivated Comments 03/10/2025 9:30 PM Care Teams Emergency Management Coordinator Relationship Specialty Start Date End Date Emily Jurado PA-C [address] [place] [address] PCP - General 03/11/25
--- OUTSIDE RECORDS SUMMARY | 2025-04-01 18:27 | XMS_ITS | Encounter Summary ---
Author Organization [facility] Address [address] [place] [address] Phone Care Team Providers Care Behavioral Services Tech Name Role Phone Monty De Los Santos MD Primary Care Provider Dane morillo Encounter Details Date Type Department Care Team (Late st Contact Info) Description 03/10/2017 Conversion Encounter [facility] - [address] [address] Social History Tobacco Use Types Packs/Day Years [...] on filedocumented in this encounter Care Teams Behavioral Services Tech Relationship Specialty Start Date End Date Monty De Los Santos MD PCP - General 03/04/17 09/09/22 documented as of this encounter
--- OUTSIDE RECORDS SUMMARY | 2025-04-01 18:27 | XMS_ITS | Clinical Summary ---
Author Organization [facility] Address [address] [place] [address] Phone Care Team Providers Care Marketing Secretary Name Role Phone Emily Jurado Primary Care Provider [phone] Social History Tobacco Use Types Packs/Day Years Used Date Smoking Tobacco: Never Assessed Sex and Gender Information Value Date Recorded Sex Assigned at Not on file Legal Sex Male 10:45 AM EDT Gender Identity Not on file Sexual Orientation Not on file Plan of Treatment Upcoming Encounters Date Type Department Care Team ([facility] Contact Info) Description 04/24/2025 9:00 AM EDT Consult Orthopedic Surgery - [place] [address] [address] Eugene Jones, DPM [address] [address] Health Maintenance Due Date Last Done Comments DTaP,Tdap,and Td Vaccines (1 - Tdap) 2008 Hepatitis B Vaccines (1 of 3 - 19+ 3-dose series) 2008 Pneumococcal Vaccine: Pediat rics (0 to 5 Years) and At-Risk Patients (6 to 49 Years) (1 of 2 - PCV) 2008 Depression Screening 07/25/2024 Cholesterol Screening (Lipid Panel) 12/01/2024 HIV Screening 12/01/2024 Hepatitis C Screening 12/01/2024 Social Influencers of Health Screening 12/01/2024 COVID-19 Vaccine (1 - 2023-2 5 season) 2025 Influenza Vaccine (#1) 2025 HIB Vaccines Aged [...] ID:Not on file Type:Not on file Address: [facility] ATTN:[employer] [address] [place] [address] [place] [address] Care Teams Marketing Secretary Relationship Specialty Start Date End Date Emily Jurado PA [address] [facility], [address] [place] [address] PCP - General 12/01/24
--- OUTSIDE RECORDS SUMMARY | 2025-04-01 18:27 | XMS_ITS | Encounter Summary ---
Author Organization [facility] Address [address] [place] [address] Phone Care Team Providers Care Aquatic Centre Manager Name Role Phone Monty De Los Santos MD Primary Care Provider Dane morillo Encounter Details Date Type Department Care Team (Late st Contact Info) Description 03/02/2011 Documentation [facility] [address] [place], [place] [id number] Family Medicine, Physician [address] [place] [address] Social History Tobacco Use Types Packs/Day Years [...] on filedocumented in this encounter Care Teams Aquatic Centre Manager Relationship Specialty Start Date End Date Monty De Los Santos MD PCP - General 03/04/17 09/09/22 documented as of this encounter
== END 2025-04-01 15:28 | disposition home or self-care (01) ==
LOC: HO.HOP 15:26
PROVIDERS: Visit Provider Psychiatry & Neurology Psychiatry
DX: F43.12 Post-traumatic stress disorder, chronic (principal)
CPT/HCPCS: 99214

== ENCOUNTER → 2025-04-01 15:26 | Outpatient (BNVA) | payer OTHER, MEDICAID, SELFPAY | PROVIDERS: Visit Provider Psychiatry & Neurology Psychiatry | DX: F43.12 Post-traumatic stress disorder, chronic (principal) ==

== ENCOUNTER 2025-04-04 06:53 | Outpatient (AMB) | payer OTHER, MEDICAID, SELFPAY ==
--- OUTSIDE RECORDS SUMMARY | 2025-04-04 06:56 | XMS_ITS | Clinical Summary ---
Author Organization [facility] Address [address] [place] [address] Phone Care Team Providers Care Shoe Lacer Name Role Phone Unavailable Primary Care Provider [...]
--- OUTSIDE RECORDS SUMMARY | 2025-04-04 06:56 | XMS_ITS | Encounter Summary ---
Author Organization [facility] Address [address] [place] [address] Phone Care Team Providers Care Township Supervisor Name Role Phone Monty De Los Santos MD Primary Care Provider Dane morillo Encounter Details Date Type Department Care Team (Late st Contact Info) Description 03/10/2017 Conversion Encounter [facility] - [address] [address] Social History Tobacco Use Types Packs/Day Years [...] on filedocumented in this encounter Care Teams Township Supervisor Relationship Specialty Start Date End Date Monty De Los Santos MD PCP - General 03/04/17 09/09/22 documented as of this encounter
--- OUTSIDE RECORDS SUMMARY | 2025-04-04 06:56 | XMS_ITS | Encounter Summary ---
Author Organization [facility] Address [address] [place] [id number] Phone Care Team Providers Care Interactive Marketing Strategist Name Role Phone Monty De Los Santos MD Primary Care Provider Dane morillo Encounter Details Date Type Department Care Team (Late st Contact Info) Description 03/02/2011 Documentation [facility] [address] [place], [place] [phone] Family Medicine, Physician [address] [place] [address] Social History Tobacco Use Types Packs/Day Years [...] on filedocumented in this encounter Care Teams Interactive Marketing Strategist Relationship Specialty Start Date End Date Monty De Los Santos MD PCP - General 03/04/17 09/09/22 documented as of this encounter
--- OUTSIDE RECORDS SUMMARY | 2025-04-04 06:56 | XMS_ITS | Clinical Summary ---
Author Organization [facility] Address [address] [place] [address] Care Team Providers Care Testing Machine Operator Name Role Phone Emily Jurado PA-C Primary Care Provider [phone] Allergies Active Allergy Reactions Criticality Noted Date [...] Continuous Glucose Sensor (FreeStyle Desiree 3 Sensor) [facility] [place] EVERY 15 DAYS Active lisinopril (PRINIVIL,ZeST [...] iso morbid obesity. Ultrasound was performed in [facility] of left lower extremity due to [...] iso morbid obesity. Ultrasound was performed in [facility] of left lower extremity due to numbness and tingling. No DVT was definitively seen although vasculature was poorly visualized due to obesity. No PE seen on CTPA. - Will continue gabapentin 300 mg 3 times daily Community acquired pneumonia of right middle lob e of lung 03/10/2025 Assessment & Plan (03/10/2025 9:46 PM EDT): Patient presented as a transfer from [facility] for 7 to 10 days of cough with progressive shortness of breath and fevers. He was initially diagnosed with a viral URI after an x-ray outpatient. He was treated with Augmentin for a possible sinus infection but his symptoms persisted and he was developing worsening shortness of breath. He had an elevated D-dimer at [facility] and was transferred to for CTPA. [...] iso morbid obesity. Ultrasound was performed in [facility] of left lower extremity due to numbness and tingling. No DVT was definitively seen although vasculature was poorly visualized due to obesity. No PE seen on CTPA. - Will continue gabapentin 300 mg 3 times daily Encounters Date Type Department Care Team Description 03/10/2025 7:20 PM EDT Ancillary Procedure [facility] Emergency Department [address] [place] [address] Arnold He MD 03/10/2025 4:38 PM EDT - 03/11/2025 4:10 PM EDT Hospital Encounter [facility] Emergency Department [address] [place] [address] Arnold He MD Morse, Emily, MD Hamed, [...] Obliteration of lymphatic vessel; Chronic intractable pain; ammonia box tender (current) use of oral hypoglycemic drugs; Long-term current use of injectable noninsulin antidiabetic medication Discharge Disposition: Home or Self Care 03/10/2025 Travel from Last 3 Months Social History Tobacco Use Types Packs/Day Years Used Date Smoking Tobacco: Never Assessed [facility] Utilities Answer Date Recorded In the past 12 months has th e [employer], gas, oil, or water [employer] threatened to shut off services in your [...] any time in the past 12 m [place], were you homeless or living in a residential (including now)? No 03/11/2025 Sex and Gender [...] of2 resultswithin the time period is included. [facility] POC Glucose 235(H) 65 - 99 mg/dL 03/11/2025 1:16 PM EDT Blood specimen / Unknown 03/11/2025 1:12 PM EDT 03/11/2025 1:16 PM EDT Arnold He MD POINT OF CARE TEST ORDERABLES Fi nal Result HOSPITAL LAB See Below * (ABNORMAL) Hemoglobin A1c with Estimated Average Glucose (03/11/2025 7:17 AM EDT) Hemoglobin A1C 8.2(H) <5.7 % 03/11/2025 8:28 AM EDT [facility] Comment: A1c% Interpretation 5.7 - 6.0 Increase risk of diabetes 6.1 - 6.4 Higher risk of diabetes > or = 6.5 Consistent with diabetes Diabetes Care, 33(Supp 1):S1-S61, 2010 Estimated Average Glucose 189 mg/dL 03/11/2025 8:28 AM EDT [facility] Blood Blood specimen / Unknown 03/11/2025 7:17 AM EDT 03/11/2025 7:49 AM EDT Mayte Shaikh MD LAB BLOOD ORDERABLES Final Resul t Performing Organization Address City/[facility]/[place] [address], [place] [address] * (ABNORMAL) Complete Blood Count, with Differential (03/11/2025 7:17 AM EDT) Only the most recent of2 resultswithin the time period is included. White Blood Cell Count 8.3 4.0 - 11.0 Thou/uL 03/11/2025 8:00 AM EDT [facility] Platelet Count 258 150 - 450 Thou/uL 03/11/2025 8:00 AM EDT [facility] Hemoglobin 12.8(L) 13.0 - 17.7 g/dL 03/11/2025 8:00 AM EDT [facility] Hematocrit 38.3(L) 39.0 - 54.0 % 03/11/2025 8:00 AM [facility] Red Blood Cell Count 4.40(L) 4.50 - 6.20 Mil/uL 03/11/2025 8:00 AM [facility] MCV 87 80 - 100 fL 03/11/2025 8:00 AM [facility] MCH 29.1 26.0 - 34.0 pg 03/11/2025 8:00 AM [facility] MCHC 33.4 30.0 - 36.0 g/dL 03/11/2025 8:00 AM [facility] RDW 12.7 11.5 - 14.5 % 03/11/2025 8:00 AM [facility] MPV 9.8 7.5 - 12.5 fL 03/11/2025 8:00 AM [facility] Neutrophils Auto 55.7 % 03/11/20 8:00 AM [facility] Immature Granulocytes 1.0 % 03/11/2025 8:00 AM [facility] Lymphocytes Auto 23.1 % 03/11/20 8:00 AM [facility] Monocytes Auto 12.3 % 03/11/2025 8:00 AM [facility] Eosinophils Auto 7.4 % 03/11/20 8:00 AM [facility] Basophils Auto 0.5 % 03/11/2025 8:00 AM [facility] Abs Neutrophils Auto 4.60 2.00 - 7.50 Thou/uL 03/11/2025 8:00 AM [facility] Abs Immature Granulocytes 0.08 0.00 - 0.10 Thou/uL 03/11/2025 8:00 AM [facility] Abs Lymphocytes Auto 1.91 1.50 - 4.50 Thou/uL 03/11/2025 8:00 AM [facility] Abs Monocytes Auto 1.02 0.20 - 1.50 Thou/uL 03/11/2025 8:00 AM [facility] Abs Eosinophils Auto 0.61 0.00 - 0.70 Thou/uL 03/11/2025 8:00 AM [facility] Abs Basophils Auto 0.04 0.00 - 0.20 Thou/uL 03/11/2025 8:00 AM [facility] Blood Blood specimen / Unknown 03/11/2025 7:17 AM EDT 03/11/2025 7:49 AM EDT us Mayte Shaikh MD LAB BLOOD ORDERABLES Final Resul t Performing Organization Address City/[facility] [place] [address], [place] [address] * Magnesium (03/11/2025 7:17 AM EDT) Magnesium 1.9 1.6 - 2.7 mg/dL 03/11/2025 8:28 AM EDT [facility] Blood Blood specimen / Unknown 03/11/2025 7:17 AM EDT 03/11/2025 7:49 AM EDT us Mayte Shaikh MD LAB BLOOD ORDERABLES Final Resul t Performing Organization Address City/[facility] [place] [address], [address] [address] * (ABNORMAL) Basic Metabolic Panel (03/11/2025 7:17 AM EDT) Glucose 215(H) 65 - 99 mg/dL 03/11/2025 8:28 AM T [facility] Comment:Fasting: <100 mg/dL, Non-Fasting: <200 mg/dL (ADA 2005) Blood Urea Nitrogen (BUN) 9 8 - 21 mg/dL 03/11/2025 8:28 AM T [facility] Creatinine 0.8 0.5 - 1.3 mg/dL 03/11/2025 8:28 AM [facility] eGFR >90 >59 03/11/2025 8:28 AM [facility] Comment:CKD-EPI (2020) in mL /min/1.73 sq meters. Sodium 134(L) 136 - 145 mmol/L 03/11/2025 8:28 AM T [facility] Potassium 3.8 3.4 - 5.3 mmol/L 03/11/2025 8:28 AM EDT [facility] Comment:Specimen hemolyzed. Results may be artifactually elevated. Chloride 99 98 - 107 mmol/L 03/11/2025 8:28 AM EDT [facility] CO2 22 22 - 33 mmol/L 03/11/2025 8:28 AM EDT [facility] Anion Gap 13 7 - 17 03/11/2025 8:28 AM EDT [facility] Calcium 9.2 8.7 - 10.5 mg/dL 03/11/2025 8:28 AM EDT [facility] BUN/Creatinine Ratio 11 10.0 - 25.0 Ratio 03/11/2025 8:28 AM EDT [facility] Blood Blood specimen / Unknown 03/11/2025 7:17 AM EDT 03/11/2025 7:49 AM EDT Mayte Shaikh MD LAB BLOOD ORDERABLES Final Resul t Performing Organization Address City/[facility] [place] [address], [place] [address] * LACTIC ACID, PLASMA (03/10/2025 10:46 PM EDT) Only the most recent of2 resultswithin the time period is included. Lactic Acid 1.1 0.5 - 1.9 mmol/L 03/10/2025 11:39 PM EDT [facility] 03/10/2025 10:4 6 PM EDT 03/10/2025 11:18 PM EDT Arnold He MD LAB BLOOD ORDERABLES Final Resul t Performing Organization Address City/[facility]/[place] [address], [place] [address] * Blood Culture (03/10/2025 8:22 PM EDT) Culture Sterile after 5 days 03/15/2025 7:47 AM EDT [facility] Blood Blood specimen / Unknown 03/10/2025 8:22 PM EDT 03/10/2025 9:28 PM EDT Comment:Blood us Arnold He MD LAB BLOOD ORDERABLES Final Resul t [facility] [address] [place] [address], [place] * CTA Chest for P.E. (03/10/2025 [...] <6 <23 ng/L 03/10/2025 6:49 PM EDT [facility] Delta (Change) NO CHANGE <3 03/10/2025 6:49 PM EDT [facility] 03/10/2025 5:39 PM EDT 03/10/2025 6:15 PM EDT us Franky Castañeda PA-C LAB BLOOD ORDERABLES Final R esult Performing Organization Address City/State/[facility] Co de Phone Number [address] [address], [address] [address] * Ed Performed [employer] (03/10/2025 [...] PM EDT) Ventricular rate 99 BPM EKG [facility] Atrial rate 99 BPM EKG [facility] P-R interval 148 ms EKG [facility] QRS duration 82 ms EKG [facility] Q-T interval 320 ms EKG [facility] QTC calculation (Bazett) 411 ms EKG [facility] P axis 48 degrees EKG [facility] R axis 62 degrees EKG [facility] T axis 21 degrees EKG [facility] 03/10/2025 5:09 PM EDT Narrative EKG [facility] - 03/10/2025 9:10 PM EDT Normal sinus rhythm Normal ECG No previous ECGs available Confirmed by DO Serrano Kyla ([id number]) on 03/10/2025 9:10:30 PM Procedure Note Genevieve Serrano DO - 03/10/2025 Normal sinus rhythm Normal ECG No previous ECGs available Confirmed by DO Serrano Kyla ([id number]) on 03/10/2025 9:10:30 PM Franky Castañeda PA-C ECG ORDERABLES Final Result Performing Organization Address City/[facility]/ZIP Co de Phone Number EKG [facility] * proBNP, N-terminal (BNP) (03/10/2025 4:48 PM EDT) proBNP, N-terminal 39 <125 pg/mL 03/10/2025 5:47 PM EDT [facility] Blood Blood specimen / Unknown 03/10/2025 4:48 PM EDT 03/10/2025 4:55 PM EDT Franky Castañeda PA-C LAB BLOOD ORDERABLES Final R esult Performing Organization Address [facility] Co de Phone Number [address] [address], [address] [address] * (ABNORMAL) Comprehensive Metabolic Panel (03/10/2025 4:48 PM EDT) Glucose 228(H) 65 - 99 mg/dL 03/10/2025 5:47 PM EDT [facility] Comment:Fasting: <100 mg/dL, Non-Fasting: <200 mg/dL (ADA 2004) Blood Urea Nitrogen (BUN) 10 8 - 21 mg/dL 03/10/2025 5:47 PM EDT [facility] Creatinine 0.9 0.5 - 1.3 mg/dL 03/10/2025 5:47 PM EDT [facility] eGFR >90 >59 03/10/2025 5:47 PM EDT [facility] Comment:CKD-EPI (2020) in mL /min/1.73 sq meters. Sodium 136 136 - 145 mmol/L 03/10/2025 5:47 PM EDT [facility] Potassium 4.1 3.4 - 5.3 mmol/L 03/10/2025 5:47 PM EDT [facility] Chloride 97(L) 98 - 107 mmol/L 03/10/2025 5:47 PM EDT [facility] CO2 23 22 - 33 mmol/L 03/10/2025 5:47 PM EDT [facility] Calcium 9.8 8.7 - 10.5 mg/dL 03/10/2025 5:47 PM [facility] Alkaline Phosphatase 65 45 - 128 U/L 03/10/2025 5:47 PM EDT [facility] Aspartate Aminotrans (AST) 47 10 - 55 U/L 03/10/2025 5:47 PM EDT [facility] Alanine Aminotrans (ALT) 23 10 - 55 U/L 03/10/2025 5:47 PM EDT [facility] Bilirubin, Total 0.6 0.2 - 1.0 mg/dL 03/10/2025 5:47 PM EDT [facility] Protein, Total 7.4 6.3 - 8.3 g/dL 03/10/2025 5:47 PM EDT [facility] Albumin 3.6 3.5 - 5.0 g/dL 03/10/2025 5:47 PM [facility] BUN/Creatinine Ratio 11 10.0 - 25.0 Ratio 03/10/2025 5:47 PM [facility] Globulin 3.8 1.5 - 3.9 g/dL 03/10/2025 5:47 PM [facility] Albumin/Globulin Ratio 0.9(L) 1.0 - 3.0 Ratio 03/10/2025 5:47 PM [facility] Anion Gap 16 7 - 17 03/10/2025 5:47 PM [facility] Blood Blood specimen / Unknown 03/10/2025 4:48 PM EDT 03/10/2025 4:55 PM EDT us Franky Castañeda PA-C LAB BLOOD ORDERABLES Final R esult [facility] [address] [place] [address], [facility] [address] [place] [address] from Last 3 Months Insurance [facility] [address] [id number] Advance Directives * Full Code (Latest Code Status on File) Date Activated Date Inactivated Comments 03/10/2025 9:30 PM Care Teams Testing Machine Operator Relationship Specialty Start Date End Date Emily Jurado PA-C [address] [place] [address] PCP - General 03/11/25
--- OUTSIDE RECORDS SUMMARY | 2025-04-04 06:56 | XMS_ITS | Clinical Summary ---
Author Organization [facility] Address [address] [place] [address] Phone Care Team Providers Care Professor Of Communication Name Role Phone Emily Jurado Primary Care Provider [phone] Social History Tobacco Use Types Packs/Day Years Used Date Smoking Tobacco: Never Assessed Sex and Gender Information Value Date Recorded Sex Assigned at Not on file Legal Sex Male 10:45 AM EDT Gender Identity Not on file Sexual Orientation Not on file Plan of Treatment Upcoming Encounters Date Type Department Care Team ([facility] Contact Info) Description 04/24/2025 9:00 AM EDT Consult Orthopedic Surgery - [place] [address] [address] Eugene Jones, DPM [address] [address] Health Maintenance Due Date Last [...] ID:Not on file Type:Not on file Address: [facility] ATTN:[employer] [address] [place] [id number] [place] [address] Care Teams Professor Of Communication Relationship Specialty Start Date End Date Emily Jurado PA [address] [facility], [address] [place] [address] PCP - General 12/01/24
--- NOTE | 2025-04-04 07:27 | MHC.AMDMED ---
Intake Intake Visit Reasons: 60 min Lithographic Proofer Required: No Accompanied by: Mother Allergies Sulfa (Sulfonamide Antibiotics) (SULFA (SULFONAMIDE ANTIBIOTICS)) Allergy (Unknown, Verified 03/19/25 08:38) RASH sulfamethoxazole (From BACTRIM) Allergy (Unknown, Verified 03/19/25 08:38) RASH trimethoprim (From BACTRIM) Allergy (Unknown, Verified 03/19/25 08:38) RASH amoxicillin Adverse Reaction (Unknown, Verified 03/19/25 08:38) UTI, Swelling in the genital area HPI Comprehensive Diabetes Asmnt Most Recent Diabetes Results: Hemoglobin A1c 5.9 % 05/21/19 Microalb/Creat Ratio 14.4 ug/mg cr 06/12/18 Cholesterol, (<200) 137 mg/dL 01/31/25 HDL Cholesterol, (>40) 44 mg/dL 01/31/25 Triglycerides, (<150) 197 mg/dL H 01/31/25 Creatinine, (0.5-1.4) 0.87 mg/dL 03/10/25 BUN, (9-16) 10 mg/dL 03/10/25 Sodium, (135-145) 132 mmol/L L 03/10/25 Potassium, (3.3-5.1) 3.8 mmol/L 03/10/25 Chloride, (96-108) 100 mmol/L 03/10/25 Carbon Dioxide, (22-29) 21 mmol/L L 03/10/25 Calcium, (8.4-10.2) 9.5 mg/dL 03/10/25 AST, (5-37) 42 U/L H 03/19/25 ALT, (0-40) 34 U/L 03/19/25 Total Protein, (6.5-8.0) 7.0 g/dL 03/10/25 Albumin, (3.5-5.0) 3.7 g/dL 03/10/25 [facility] Medical History Elevated LFTs Lymphedema Major depression, recurrent, chronic Chronic post-traumatic stress disorder (PTSD) Type 2 diabetes mellitus with morbid obesity Spinal stenosis Spondylolisthesis of lumbar region Anxiety Hypertension Prediabetes Vitamin D deficiency Surgical History No pertinent past surgical history Family History Father Hypertension Heart disease CVA (cerebral vascular accident) Mother Hypertension Diabetes Thyroid nodule Obesity Social History Housing: House Alcohol intake: current Alcohol intake frequency: holidays/special occasions only Patient Tobacco Use Status: Never used Tobacco e-Cigarette/Vaping Use: Never Used Second Hand Smoke Exposure: No service: No Current occupational status: disabled Cognitive needs: Yes (cane) Hearing needs: No Vision needs: No Assessment & Plan Assessment & Plan (1) Type 2 diabetes mellitus with morbid obesity: Code(s): E11.69 - Type 2 diabetes mellitus with other specified complication; E66.01 - Morbid (severe) obesity due to excess calories Plan: Personal Continuous Glucose Monitor: Patients CGM information reviewed, Pt uses [employer] with phone bryan Pt recovering from UTI and pneumonia Last a1c on 03/19/25 8.6% Pt has not increased Ozempic to 1mg. He increase in 3 weeks Introduction to Nutrition Importance of healthy diet in managing DM Diet is personalized to individual preference Review patient?s regular diet/food preferences How diet effects glucose Eating 3 balanced meals a day with small, healthy snacks between meals Review food groups Carbohydrates: What is a carbohydrate/Which food/food groups are considered carbohydrates Effect of carbohydrates on blood glucose Portion sizes Plate method Meal planning Recommendations: Follow plate method, consistent carbs and read nutritional labels. Reminded patient that to check finger sticks if symptoms do not match sensor reading. Discussed lag time between finger stick and sensor data.? Patient able to insert sensor independently at home without issue.? Portions of this note were created using voice recognition software, please excuse any words or phrases that may have been misinterpreted. Coding Level of Care Code Est Pt Level 1 (55191) Diagnoses Type 2 diabetes mellitus with morbid obesity E11.69; E66.01
== END 2025-04-04 07:35 | disposition home or self-care (01) ==
LOC: HO.ENCR 06:54
PROVIDERS: Visit Provider Registered Nurse Diabetes Educator
DX: E11.69 Type 2 diabetes mellitus with other specified complication (principal); E66.01 Morbid (severe) obesity due to excess calories
CPT/HCPCS: 99499

== ENCOUNTER 2025-05-24 08:19 | Outpatient (REF) | payer OTHER, MEDICAID, SELFPAY ==
--- NOTE | ~2025-05-24 | US_ITS ---
EXAMINATION: US ABDOMEN LIMITED WITH LIVER ELASTOGRAPHY HISTORY: R79.89 - Other specified abnormal findings of blood chemistry TECHNIQUE: Real-time grayscale ultrasound imaging of the right upper quadrant was performed and images were reviewed. COMPARISON: There are no prior studies available for comparison. FINDINGS: Liver: The right lobe of the liver measures 23.7 cm in size. The left lobe of the liver measures 15.6 cm in size. The liver demonstrates increased echotexture, consistent with steatosis. No focal mass or intrahepatic biliary ductal dilatation is identified. There is normal hepatopedal flow in the portal vein. Ultrasound elastography of the liver was performed with 10 separate measurements of the liver parenchyma with the patient in the supine position. Measurements were obtained approximately 2 cm below Lorena's capsule and perpendicular to the capsule. The median shear wave velocity is 1.46 m/s. The interquartile range/median (IQR/median) is 0.52. Gallbladder and biliary tree: The gallbladder is unremarkable, without evidence of calculi, wall thickening, or pericholecystic fluid. There is no sonographic Valente sign. The common bile duct is normal in caliber measuring 3 mm. Right Kidney: The right kidney measures 14.4 cm in length. The right kidney is unremarkable, without evidence of masses, hydronephrosis, or calculi. Pancreas: The pancreatic head, neck, and body are unremarkable. The pancreatic tail is obscured by bowel gas. Abdominal aorta and inferior vena cava: The visualized portions of the abdominal aorta and inferior vena cava are normal in caliber. There is no free fluid in the right upper quadrant. US/US abdomen rico w elastography IMPRESSION: Hepatomegaly and hepatic steatosis. The median shear wave velocity in the liver is 1.46 m/s, corresponding to a median liver stiffness of 6.90 kPa. The IQR/median value is 0.52. This is indicative of a poor quality data set, and the estimated liver stiffness may be unreliable. Findings are indicative of a low elastography value which rules out advanced chronic liver disease in asymptomatic patients. REFERENCE: Society of Radiologists in Ultrasound Liver Stiffness Thresholds (2019): LIVER STIFFNESS THRESHOLDS: *Shear wave velocity less than 1.3 m/s (Liver Stiffness equal or less than 5 kPa): High probability of being normal. *Shear wave velocity less than 1.7 m/s (Liver Stiffness less than 9 kPa): In the absence of other known clinical signs, rules out compensated advanced chronic liver disease. *Shear wave velocity between 1.7-2.1 m/s (Liver Stiffness 9-13 kPa): Suggestive of compensated advanced chronic liver disease but need further test for confirmation. *Shear wave velocity between 2.1-2.4 m/s (Liver Stiffness 13-17 kPa): Rules in compensated advanced chronic liver disease. *Shear wave velocity greater than 2.4 m/s (Liver Stiffness over 17 kPa): Suggestive of clinically significant portal hypertension. QUALITY OF DATA SET: *IQR/Median value equal or less than 0.30 implies a quality data set. *IQR/Median value over 0.30 implies a poor quality data set. SIGNIFICANT CHANGE FROM PRIOR EXAM: Significant change if liver stiffness measurement is 10% or greater from prior exam. OTHER CONSIDERATIONS: The stage of liver fibrosis may be overestimated in the setting of acute hepatitis, liver inflammation, elevated liver function tests, hepatic vascular congestion, obstructive cholestasis, non-fasting state, and infiltrative diseases such as amyloidosis and lymphoma. In some patients with NAFLD, the liver stiffness thresholds for compensated advanced chronic liver disease may be lower. In causes other than viral hepatitis and NAFLD, liver stiffness thresholds are not well established. Electronically signed by: Kyle Knight MD 05/24/2025 09:45 AM EDT
--- OUTSIDE RECORDS SUMMARY | 2025-05-24 08:24 | XMS_ITS | Encounter Summary ---
Author Organization [facility] Address [address] [place] [address] Phone Care Team Providers Care Roller Inspector And Mender Name Role Phone Monty De Los Santos MD Primary Care Provider Dane morillo Encounter Details Date Type Department Care Team (Late st Contact Info) Description 03/10/2017 Conversion Encounter [facility] - [address] [address] Social History Tobacco Use Types Packs/Day Years [...] on filedocumented in this encounter Care Teams Roller Inspector And Mender Relationship Specialty Start Date End Date Monty De Los Santos MD PCP - General 03/04/17 09/09/22 documented as of this encounter
--- OUTSIDE RECORDS SUMMARY | 2025-05-24 08:24 | XMS_ITS | Encounter Summary ---
Author Organization [facility] Address [address] [place] [address] Phone Care Team Providers Care Bottom Saw Operator Name Role Phone Monty De Los Santos MD Primary Care Provider Dane morillo Encounter Details Date Type Department Care Team (Late st Contact Info) Description 03/02/2011 Documentation [facility] [address] [place], [place] [id number] Family Medicine, Physician [address] [place] [address] Social History Tobacco Use Types Packs/Day Years [...] on filedocumented in this encounter Care Teams Bottom Saw Operator Relationship Specialty Start Date End Date Monty De Los Santos MD PCP - General 03/04/17 09/09/22 documented as of this encounter
--- OUTSIDE RECORDS SUMMARY | 2025-05-24 08:24 | XMS_ITS | Clinical Summary ---
Author Organization [facility] Address [address] [place] [address] Care Team Providers Care Welding Equipment Repairer Supervisor Name Role Phone Emily Jurado PA-C Primary Care Provider [phone] Allergies Active Allergy Reactions Criticality Noted Date [...] by mouth 2 (two) times a day. Active propranolol (INDERAL) 10 MG tablet Take 2 tablets (20 mg total) by mouth 3 times a day. Active risperiDONE (RisperDAL) 0.5 MG tablet Take 1 tablet (0.5 mg total) by mouth 2 (two) times a day. Active Ozempic, 0.25 or 0.5 MG/DOSE, 2 MG/3ML prefilled pen injection Inject 0.5 mg under the skin once a week. On Wednesdays Active cholecalciferol (CHOLECALCIFERO L) 25 MCG (1000 UT) tablet Take 1 tablet (1,000 Units total) by mouth daily. Active Continuous Glucose Sensor (FreeStyle Desiree 3 Sensor) Mis DIRECTED EVERY 15 DAYS Active lisinopril (PRINIVIL,ZeSTR IL) 20 MG tabletIndicatio ns:Shortness of breath Take 1 tablet (20 mg total) by mouth daily. Do not start before March 12, 2025. 30 tablet Active Active Problems Problem Noted Date Diagnosed Date [...] iso morbid obesity. Ultrasound was performed in [facility] of left lower extremity due to [...] iso morbid obesity. Ultrasound was performed in [facility] of left lower extremity due to numbness and tingling. No DVT was definitively seen although vasculature was poorly visualized due to obesity. No PE seen on CTPA. - Will continue gabapentin 300 mg 3 times daily Community acquired pneumonia of right middle lob e of lung 03/10/2025 Assessment & Plan (03/10/2025 9:46 PM EDT): Patient presented as a transfer from [facility] for 7 to 10 days of cough with progressive shortness of breath and fevers. He was initially diagnosed with a viral URI after an x-ray outpatient. He was treated with Augmentin for a possible sinus infection but his symptoms persisted and he was developing worsening shortness of breath. He had an elevated D-dimer at [facility] and was transferred to for CTPA. [...] iso morbid obesity. Ultrasound was performed in [facility] of left lower extremity due to numbness and tingling. No DVT was definitively seen although vasculature was poorly visualized due to obesity. No PE seen on CTPA. - Will continue gabapentin 300 mg 3 times daily Encounters Date Type Department Care Team Description 03/10/2025 7:20 PM EDT Ancillary Procedure [facility] Emergency Department [address] [place], [place] [id number] Arnold He MD 03/10/2025 4:38 PM EDT - 03/11/2025 4:10 PM EDT Hospital Encounter [facility] Emergency Department [address] [place], [place] [id number] Arnold He MD Morse, Emily, MD Hamed, [...] Obliteration of lymphatic vessel; Chronic intractable pain; FPC (current) use of oral hypoglycemic drugs; Long-term current use of injectable noninsulin antidiabetic medication Discharge Disposition: Home or Self Care 03/10/2025 Travel from Last 3 Months Social History Tobacco Use Types Packs/Day Years Used Date Smoking Tobacco: Never Assessed [facility] Utilities Answer Date Recorded In the past 12 months has th e electric, gas, oil, or water company threatened to shut off services in your [...] any time in the past 12 m [facility], were you homeless or living in a mcfp (including now)? No 03/11/2025 Sex and Gender [...] Years) (1 of 2 - PCV) 2008 Influenza Vaccine 02/22/2025 COVID-19 Vaccine (1 - season) 2025 Hemoglobin A1C 06/11/2025 03/11/2025 Creatinine with GFR 03/11/2026 03/11/2025, HPV Vaccines (No Doses Required) Completed Procedures Procedure Name Priority Date/Time Associated Diagnosis [...] of2 resultswithin the time period is included. POC Glucose 235(H) 65 - 99 mg/dL 03/11/2025 1:16 PM EDT Blood specimen / Unknown 03/11/2025 1:12 PM EDT 03/11/2025 1:16 PM EDT us Arnold He MD POINT OF CARE TEST ORDERABLES Fi nal Result HOSPITAL LAB See Below * (ABNORMAL) Hemoglobin A1c with Estimated Average Glucose (03/11/2025 7:17 AM EDT) Hemoglobin A1C 8.2(H) <5.7 % 03/11/2025 8:28 AM [facility] Comment: A1c% Interpretation 5.7 - 6.0 Increase risk of diabetes 6.1 - 6.4 Higher risk of diabetes > or = 6.5 Consistent with diabetes Diabetes Care, 33(Supp 1):S1-S61, 2010 Estimated Average Glucose 189 mg/dL 03/11/2025 8:28 AM [facility] Blood Blood specimen / Unknown 03/11/2025 7:17 AM EDT 03/11/2025 7:49 AM EDT us Mayte Shaikh MD LAB BLOOD ORDERABLES Final Resul t [address] [address], [address] [address] * (ABNORMAL) Complete Blood Count, with Differential (03/11/2025 7:17 AM EDT) Only the most recent of2 resultswithin the time period is included. White Blood Cell Count 8.3 4.0 - 11.0 Thou/uL 03/11/2025 8:00 AM [facility] Platelet Count 258 150 - 450 Thou/uL 03/11/2025 8:00 AM [facility] Hemoglobin 12.8(L) 13.0 - 17.7 g/dL 03/11/2025 8:00 AM [facility] Hematocrit 38.3(L) 39.0 - 54.0 % 03/11/2025 8:00 AM [facility] Red Blood Cell Count 4.40(L) 4.50 - 6.20 Mil/uL 03/11/2025 8:00 AM [facility] MCV 87 80 - 100 fL 03/11/2025 8:00 AM [facility] MCH 29.1 26.0 - 34.0 pg 03/11/2025 8:00 AM [facility] MCHC 33.4 30.0 - 36.0 g/dL 03/11/2025 8:00 AM [facility] RDW 12.7 11.5 - 14.5 % 03/11/2025 8:00 AM [facility] MPV 9.8 7.5 - 12.5 fL 03/11/2025 8:00 AM [facility] Neutrophils Auto 55.7 % 03/11/20 8:00 AM [facility] Immature Granulocytes 1.0 % 03/11/2025 8:00 AM [facility] Lymphocytes Auto 23.1 % 03/11/20 8:00 AM [facility] Monocytes Auto 12.3 % 03/11/2025 8:00 AM [facility] Eosinophils Auto 7.4 % 03/11/20 8:00 AM [facility] Basophils Auto 0.5 % 03/11/2025 8:00 AM [facility] Abs Neutrophils Auto 4.60 2.00 - 7.50 Thou/uL 03/11/2025 8:00 AM [facility] Abs Immature Granulocytes 0.08 0.00 - 0.10 Thou/uL 03/11/2025 8:00 AM [facility] Abs Lymphocytes Auto 1.91 1.50 - 4.50 Thou/uL 03/11/2025 8:00 AM [facility] Abs Monocytes Auto 1.02 0.20 - 1.50 Thou/uL 03/11/2025 8:00 AM [facility] Abs Eosinophils Auto 0.61 0.00 - 0.70 Thou/uL 03/11/2025 8:00 AM [facility] Abs Basophils Auto 0.04 0.00 - 0.20 Thou/uL 03/11/2025 8:00 AM [facility] Blood Blood specimen / Unknown 03/11/2025 7:17 AM EDT 03/11/2025 7:49 AM EDT us Mayte Shaikh MD LAB BLOOD ORDERABLES Final Resul t [address] [address], [address] [address] * Magnesium (03/11/2025 7:17 AM EDT) Magnesium 1.9 1.6 - 2.7 mg/dL 03/11/2025 8:28 AM [facility] Blood Blood specimen / Unknown 03/11/2025 7:17 AM EDT 03/11/2025 7:49 AM EDT Mayte Shaikh MD LAB BLOOD ORDERABLES Final Resul t [address] [address], [facility] [address] [place] [address] * (ABNORMAL) Basic Metabolic Panel (03/11/2025 7:17 AM EDT) Glucose 215(H) 65 - 99 mg/dL 03/11/2025 8:28 AM [facility] Comment:Fasting: <100 mg/dL, Non-Fasting: <200 mg/dL (ADA 2004) Blood Urea Nitrogen (BUN) 9 8 - 21 mg/dL 03/11/2025 8:28 AM [facility] Creatinine 0.8 0.5 - 1.3 mg/dL 03/11/2025 8:28 AM [facility] eGFR >90 >59 03/11/2025 8:28 AM [facility] Comment:CKD-EPI (2020) in mL /min/1.73 sq meters. Sodium 134(L) 136 - 145 mmol/L 03/11/2025 8:28 AM [facility] Potassium 3.8 3.4 - 5.3 mmol/L 03/11/2025 8:28 AM [facility] Comment:Specimen hemolyzed. Results may be artifactually elevated. Chloride 99 98 - 107 mmol/L 03/11/2025 8:28 AM [facility] CO2 22 22 - 33 mmol/L 03/11/2025 8:28 AM [facility] Anion Gap 13 7 - 17 03/11/2025 8:28 AM [facility] Calcium 9.2 8.7 - 10.5 mg/dL 03/11/2025 8:28 AM [facility] BUN/Creatinine Ratio 11 10.0 - 25.0 Ratio 03/11/2025 8:28 AM [facility] Blood Blood specimen / Unknown 03/11/2025 7:17 AM EDT 03/11/2025 7:49 AM EDT us Mayte Shaikh MD LAB BLOOD ORDERABLES Final Resul t [address] [address], [address] [address] * LACTIC ACID, PLASMA (03/10/2025 10:46 PM EDT) Only the most recent of2 resultswithin the time period is included. Lactic Acid 1.1 0.5 - 1.9 mmol/L 03/10/2025 11:39 PM EDT 03/10/2025 10:4 6 PM EDT 03/10/2025 11:18 PM EDT us Arnold He MD LAB BLOOD ORDERABLES Final Resul t Performing Organization Address City/[facility]/ZIP Co de Phone Number [address] [address], [address] [address] * Blood Culture (03/10/2025 8:22 PM EDT) Culture Sterile after 5 days 03/15/2025 7:47 AM EDT [facility] Blood Blood specimen / Unknown 03/10/2025 8:22 PM EDT 03/10/2025 9:28 PM EDT Comment:Blood us Arnold He MD LAB BLOOD ORDERABLES Final Resul t [facility] [address] [place] [address], * CTA Chest for P.E. (03/10/2025 7:12 [...] and steatosis. Partially visualized splenomegaly. VTE: Negative. Franky Castañeda PA-C [facility] ORDERABLES Final Resu lt * High Sensitivity Troponin T (03/10/2025 5:39 PM EDT) Only the most recent of2 resultswithin the time period is included. High Sensitivity Troponin T <6 <23 ng/L 03/10/2025 6:49 PM EDT Delta (Change) NO CHANGE <3 03/10/2025 6:49 PM EDT 03/10/2025 5:39 PM EDT 03/10/2025 6:15 PM EDT us Franky Castañeda PA-C LAB BLOOD ORDERABLES Final R esult Performing Organization Address City/State/[facility] Co de Phone Number [address] [address], [address] [address] * Ed Performed [facility] (03/10/2025 5:26 PM EDT) Anatomical Region Laterality Modality Ultrasound 03/10/2025 5:05 PM EDT Narrative 03/10/2025 7:15 PM EDT Cardiac ([facility]) Exam Information: Exam Category: Diagnostic (Manager Of Recruiting) Exam Occurrence: Initial exam Indication(s) for Exam: [...] ( ED) Exam Information: Exam Category: Diagnostic (Manager Of Recruiting) Exam Occurrence: Initial exam Indication(s) for Exam: [...] 2025 at 7:15PM us Arnold He MD [facility] US ORDERABLES Final Result * ECG 12 lead (03/10/2025 5:09 PM EDT) [facility] Ventricular rate 99 BPM EKG Atrial rate 99 BPM EKG [facility] P-R interval 148 ms EKG [facility] QRS duration 82 ms EKG [facility] Q-T interval 320 ms EKG [facility] QTC calculation (Bazett) 411 ms EKG P axis 48 degrees EKG [facility] R axis 62 degrees EKG [facility] T axis 21 degrees EKG [facility] 03/10/2025 5:09 PM EDT Narrative G - 03/10/2025 9:10 PM EDT Normal sinus rhythm Normal ECG No previous ECGs available Confirmed by DO Serrano Kyla ([id number]) on 03/10/2025 9:10:30 PM Procedure Note Genevieve Serrano DO - 03/10/2025 Normal sinus rhythm Normal ECG No previous ECGs available Confirmed by DO Serrano Kyla ([id number]) on 03/10/2025 9:10:30 PM us Franky Castañeda PA-C ECG ORDERABLES Final Result [facility] * proBNP, N-terminal (BNP) (03/10/2025 4:48 PM EDT) [facility] proBNP, N-terminal 39 <125 pg/mL 03/10/2025 5:47 PM EDT Blood Blood specimen / Unknown 03/10/2025 4:48 PM EDT 03/10/2025 4:55 PM EDT us Franky Castañeda PA-C LAB BLOOD ORDERABLES Final R esult [address] [place] [address], [facility] [address] [place] [address] * (ABNORMAL) Comprehensive Metabolic Panel (03/10/2025 4:48 PM EDT) Glucose 228(H) 65 - 99 mg/dL 03/10/2025 5:47 PM EDT Comment:Fasting: <100 mg/dL, Non-Fasting: <200 mg/dL (ADA 2004) Blood Urea Nitrogen (BUN) 10 8 - 21 mg/dL 03/10/2025 5:47 PM EDT Creatinine 0.9 0.5 - 1.3 mg/dL 03/10/2025 5:47 PM EDT eGFR >90 >59 03/10/2025 5:47 PM T Comment:CKD-EPI (2020) in mL /min/1.73 sq meters. Sodium 136 136 - 145 mmol/L 03/10/2025 5:47 PM EDT Potassium 4.1 3.4 - 5.3 mmol/L 03/10/2025 5:47 PM [facility] Chloride 97(L) 98 - 107 mmol/L 03/10/2025 5:47 PM [facility] CO2 23 22 - 33 mmol/L 03/10/2025 5:47 PM [facility] Calcium 9.8 8.7 - 10.5 mg/dL 03/10/2025 5:47 PM [facility] Alkaline Phosphatase 65 45 - 128 U/L 03/10/2025 5:47 PM [facility] Aspartate Aminotrans (AST) 47 10 - 55 U/L 03/10/2025 5:47 PM [facility] Alanine Aminotrans (ALT) 23 10 - 55 U/L 03/10/2025 5:47 PM EDT Bilirubin, Total 0.6 0.2 - 1.0 mg/dL 03/10/2025 5:47 PM EDT Protein, Total 7.4 6.3 - 8.3 g/dL 03/10/2025 5:47 PM EDT Albumin 3.6 3.5 - 5.0 g/dL 03/10/2025 5:47 PM EDT BUN/Creatinine Ratio 11 10.0 - 25.0 Ratio 03/10/2025 5:47 PM EDT Globulin 3.8 1.5 - 3.9 g/dL 03/10/2025 5:47 PM EDT Albumin/Globulin Ratio 0.9(L) 1.0 - 3.0 Ratio 03/10/2025 5:47 PM EDT Anion Gap 16 7 - 17 03/10/2025 5:47 PM EDT Blood Blood specimen / Unknown 03/10/2025 4:48 PM EDT 03/10/2025 4:55 PM EDT Franky Castañeda PA-C LAB BLOOD ORDERABLES Final R esult [address] [address], [address] [address] from Last 3 Months Insurance [facility] Advance Directives * Full Code (Latest Code Status on File) Date Activated Date Inactivated Comments 03/10/2025 9:30 PM Care Teams Welding Equipment Repairer Supervisor Relationship Specialty Start Date End Date Emily Jurado PA-C [address] [place] [address] [place] [address] PCP - General 03/11/25
--- OUTSIDE RECORDS SUMMARY | 2025-05-24 08:24 | XMS_ITS | Clinical Summary ---
Author Organization [facility] Address [address] [place] [address] Phone Care Team Providers Care Coater Brake Linings Name Role Phone Unavailable Primary Care Provider [...] Vaccines (#1) 2025 COVID-19 Vaccine ( - 2024- season) 2025 HIB Vaccines Completed 11/22/1990 IPV [...]
== END 2025-05-24 08:20 | disposition home or self-care (01) ==
LOC: HO.US 08:19
PROVIDERS: Visit Provider Physician Assistant Medical
DX: R79.89 Other specified abnormal findings of blood chemistry (principal)
CPT/HCPCS: 76705; 76981

== ENCOUNTER → 2025-05-24 08:27 | Outpatient (BNV) | payer OTHER, MEDICAID, SELFPAY | PROVIDERS: Visit Provider Radiology Diagnostic Radiology | DX: R79.89 Other specified abnormal findings of blood chemistry (principal) | CPT/HCPCS: 76705 ==

== ENCOUNTER 2025-05-27 08:08 | Outpatient (AMB) | payer OTHER, MEDICAID, SELFPAY ==
--- OUTSIDE RECORDS SUMMARY | 2025-05-27 08:22 | XMS_ITS | Encounter Summary ---
Author Organization [facility] Address [address] [place] [id number] Phone Care Team Providers Care Loaf Counter Name Role Phone Monty De Los Santos MD Primary Care Provider Dane morillo Encounter Details Date Type Department Care Team (Late st Contact Info) Description 03/02/2011 Documentation [facility] [address] [place], [place] [id number] Family Medicine, Physician [address] [place] [address] Social History Tobacco Use Types Packs/Day Years [...] on filedocumented in this encounter Care Teams Loaf Counter Relationship Specialty Start Date End Date Monty De Los Santos MD PCP - General 03/04/17 09/09/22 documented as of this encounter
--- OUTSIDE RECORDS SUMMARY | 2025-05-27 08:22 | XMS_ITS | Clinical Summary ---
Author Organization [facility] Address [address] [place] [address] Care Team Providers Care Creative Services Director Name Role Phone Emily Jurado PA-C Primary Care Provider [phone] Allergies Active Allergy Reactions Criticality Noted Date [...] iso morbid obesity. Ultrasound was performed in [facility] of left lower extremity due to numbness [...] iso morbid obesity. Ultrasound was performed in [facility] of left lower extremity due to numbness and tingling. No DVT was definitively seen although vasculature was poorly visualized due to obesity. No PE seen on CTPA. - Will continue gabapentin 300 mg 3 times daily Community acquired pneumonia of right middle lob e of lung 03/10/2025 Assessment & Plan (03/10/2025 9:46 PM EDT): Patient presented as a transfer from [facility] for 7 to 10 days of cough with progressive shortness of breath and fevers. He was initially diagnosed with a viral URI after an x-ray outpatient. He was treated with Augmentin for a possible sinus infection but his symptoms persisted and he was developing worsening shortness of breath. He had an elevated D-dimer at [facility] and was transferred to for CTPA. CTPA [...] iso morbid obesity. Ultrasound was performed in [facility] of left lower extremity due to numbness and tingling. No DVT was definitively seen although vasculature was poorly visualized due to obesity. No PE seen on CTPA. - Will continue gabapentin 300 mg 3 times daily Encounters Date Type Department Care Team Description 03/10/2025 7:20 PM EDT Ancillary Procedure [facility] Emergency Department [address] [place], [place] [id number] Arnold He MD 03/10/2025 4:38 PM EDT - 03/11/2025 4:10 PM EDT Hospital Encounter [facility] Emergency Department [address] [place], [place] [id number] Arnold He MD Morse, Emily, MD Hamed, [...] Obliteration of lymphatic vessel; Chronic intractable pain; half-way (current) use of oral hypoglycemic drugs; Long-term current use of injectable noninsulin antidiabetic medication Discharge Disposition: Home or Self Care 03/10/2025 Travel from Last 3 Months Social History Tobacco Use Types Packs/Day Years Used Date Smoking Tobacco: Never Assessed [facility] Utilities Answer Date Recorded In [...] any time in the past 12 [facility], were you homeless or living in a long term (including now)? No 03/11/2025 Sex and Gender [...] A1C 8.2(H) <5.7 % 03/11/2025 8:28 AM [facility] Comment: A1c% Interpretation 5.7 - 6.0 Increase risk of diabetes 6.1 - 6.4 Higher risk of diabetes > or = 6.5 Consistent with diabetes Diabetes Care, 33(Supp 1):S1-S61, 2010 Estimated Average Glucose 189 mg/dL 03/11/2025 8:28 AM [facility] Blood Blood specimen / Unknown 03/11/2025 7:17 AM EDT 03/11/2025 7:49 AM EDT us Mayte Shaikh MD LAB BLOOD ORDERABLES Final Resul t [address] [address], [address] [address] * (ABNORMAL) Complete Blood Count, with Differential (03/11/2025 7:17 AM EDT) Only the most recent of2 resultswithin the time period is included. White Blood Cell Count 8.3 4.0 - 11.0 Thou/uL 03/11/2025 8:00 AM [facility] Platelet Count 258 150 - 450 Thou/uL 03/11/2025 8:00 AM [facility] Hemoglobin 12.8(L) 13.0 - 17.7 g/dL 03/11/2025 8:00 AM [facility] Hematocrit 38.3(L) 39.0 - 54.0 % 03/11/2025 8:00 AM [facility] Red Blood Cell Count 4.40(L) 4.50 - 6.20 Mil/uL 03/11/2025 8:00 AM [facility] MCV 87 80 - 100 fL 03/11/2025 8:00 AM [facility] MCH 29.1 26.0 - 34.0 pg 03/11/2025 8:00 AM [facility] MCHC 33.4 30.0 - 36.0 g/dL 03/11/2025 8:00 AM [facility] RDW 12.7 11.5 - 14.5 % 03/11/2025 8:00 AM [facility] MPV 9.8 7.5 - 12.5 fL 03/11/2025 8:00 AM [facility] Neutrophils Auto 55.7 % 03/11/20 8:00 AM [facility] Immature Granulocytes 1.0 % 03/11/2025 8:00 AM [facility] Lymphocytes Auto 23.1 % 03/11/20 8:00 AM [facility] Monocytes Auto 12.3 % 03/11/2025 8:00 AM [facility] Eosinophils Auto 7.4 % 03/11/20 8:00 AM [facility] Basophils Auto 0.5 % 03/11/2025 8:00 AM [facility] Abs Neutrophils Auto 4.60 2.00 - 7.50 Thou/uL 03/11/2025 8:00 AM [facility] Abs Immature Granulocytes 0.08 0.00 - 0.10 Thou/uL 03/11/2025 8:00 AM [facility] Abs Lymphocytes Auto 1.91 1.50 - 4.50 Thou/uL 03/11/2025 8:00 AM [facility] Abs Monocytes Auto 1.02 0.20 - 1.50 Thou/uL 03/11/2025 8:00 AM [facility] Abs Eosinophils Auto 0.61 0.00 - 0.70 Thou/uL 03/11/2025 8:00 AM [facility] Abs Basophils Auto 0.04 0.00 - 0.20 Thou/uL 03/11/2025 8:00 AM [facility] Blood Blood specimen / Unknown 03/11/2025 7:17 AM EDT 03/11/2025 7:49 AM EDT us Mayte Shaikh MD LAB BLOOD ORDERABLES Final Resul t [address] [address], [address] [address] * Magnesium (03/11/2025 7:17 AM EDT) Magnesium 1.9 1.6 - 2.7 mg/dL 03/11/2025 8:28 AM [facility] Blood Blood specimen / Unknown 03/11/2025 7:17 AM EDT 03/11/2025 7:49 AM EDT Mayte Shaikh MD LAB BLOOD ORDERABLES Final Resul t [address] [address], [facility] [address] [place] [address] * (ABNORMAL) Basic Metabolic Panel (03/11/2025 7:17 AM EDT) Glucose 215(H) 65 - 99 mg/dL 03/11/2025 8:28 AM [facility] Comment:Fasting: <100 mg/dL, Non-Fasting: <200 mg/dL (ADA 2004) Blood Urea Nitrogen (BUN) 9 8 - 21 mg/dL 03/11/2025 8:28 AM [facility] Creatinine 0.8 0.5 - 1.3 mg/dL 03/11/2025 8:28 AM [facility] eGFR >90 >59 03/11/2025 8:28 AM [facility] Comment:CKD-EPI (2020) in mL /min/1.73 sq meters. Sodium 134(L) 136 - 145 mmol/L 03/11/2025 8:28 AM [facility] Potassium 3.8 3.4 - 5.3 mmol/L 03/11/2025 8:28 AM [facility] Comment:Specimen hemolyzed. Results may be artifactually elevated. Chloride 99 98 - 107 mmol/L 03/11/2025 8:28 AM [facility] CO2 22 22 - 33 mmol/L 03/11/2025 8:28 AM [facility] Anion Gap 13 7 - 17 03/11/2025 8:28 AM [facility] Calcium 9.2 8.7 - 10.5 mg/dL 03/11/2025 8:28 AM [facility] BUN/Creatinine Ratio 11 10.0 - 25.0 Ratio 03/11/2025 8:28 AM [facility] Blood Blood specimen / Unknown 03/11/2025 7:17 AM EDT 03/11/2025 7:49 AM EDT us Mayte Shaikh MD LAB BLOOD ORDERABLES Final Resul t [address] [address], [address] [address] * LACTIC ACID, PLASMA (03/10/2025 10:46 PM EDT) Only the most recent of2 resultswithin the time period is included. Lactic Acid 1.1 0.5 - 1.9 mmol/L 03/10/2025 11:39 PM EDT [facility] 03/10/2025 10:4 6 PM EDT 03/10/2025 11:18 PM EDT us Arnold He MD LAB BLOOD ORDERABLES Final Resul t Performing Organization Address City/[facility]/ZIP Co de Phone Number [address] [address], [address] [address] * Blood Culture (03/10/2025 8:22 PM EDT) Culture Sterile after 5 days 03/15/2025 7:47 AM EDT [facility] Blood Blood specimen / Unknown 03/10/2025 8:22 PM EDT 03/10/2025 9:28 PM EDT Comment:Blood us Arnold He MD LAB BLOOD ORDERABLES Final Resul t [facility] [address] [place] [address], * CTA Chest for P.E. (03/10/2025 7:12 [...] visualized splenomegaly. VTE: Negative. Franky Castañeda PA-C [facility] CT ORDERABLES Final Resu lt * High [...] ORDERABLES Final R esult Performing Organization Address City/State/[facility] Co de Phone Number [address] [address], [address] [address] * Ed Performed [facility] (03/10/2025 5:26 PM EDT) Anatomical Region Laterality Modality Ultrasound 03/10/2025 5:05 PM EDT Narrative 03/10/2025 7:15 PM EDT Cardiac ([facility]) Exam Information: Exam Category: Diagnostic (Light Bulb Assembler) Exam Occurrence: Initial exam Indication(s) for Exam: [...] ( ED) Exam Information: Exam Category: Diagnostic (Light Bulb Assembler) Exam Occurrence: Initial exam Indication(s) for Exam: [...] ECG 12 lead (03/10/2025 5:09 PM EDT) [facility] Ventricular rate 99 BPM EKG [facility] Atrial rate 99 BPM EKG [facility] P-R interval 148 ms EKG [facility] QRS duration 82 ms EKG [facility] Q-T interval 320 ms EKG [facility] QTC calculation (Bazett) 411 ms EKG [facility] P axis 48 degrees EKG [facility] R axis 62 degrees EKG [facility] T axis 21 degrees EKG [facility] 03/10/2025 5:09 PM EDT Narrative G [facility] - 03/10/2025 9:10 PM EDT Normal sinus rhythm Normal ECG No previous ECGs available Confirmed by DO Serrano Kyla ([id number]) on 03/10/2025 9:10:30 PM Procedure Note Genevieve Serrano DO - 03/10/2025 Normal sinus rhythm Normal ECG No previous ECGs available Confirmed by DO Serrano Kyla ([id number]) on 03/10/2025 9:10:30 PM us Franky Castañeda PA-C ECG ORDERABLES Final Result [facility] * proBNP, N-terminal (BNP) (03/10/2025 4:48 PM EDT) [facility] proBNP, N-terminal 39 <125 pg/mL 03/10/2025 5:47 PM EDT [facility] Blood Blood specimen / Unknown 03/10/2025 4:48 PM EDT 03/10/2025 4:55 PM EDT us Franky Castañeda PA-C LAB BLOOD ORDERABLES Final R esult [facility] [address] [place] [address], [facility] [address] [place] [address] * (ABNORMAL) Comprehensive Metabolic Panel (03/10/2025 4:48 [...] [place] eGFR >90 >59 03/10/2025 5:47 PM T [facility] Comment:CKD-EPI (2020) in mL /min/1.73 sq meters. Sodium 136 136 - 145 mmol/L 03/10/2025 5:47 PM EDT [facility] Potassium 4.1 3.4 - 5.3 mmol/L 03/10/2025 5:47 PM [facility] Chloride 97(L) 98 - 107 mmol/L 03/10/2025 5:47 PM [facility] CO2 23 22 - 33 mmol/L 03/10/2025 5:47 PM [facility] Calcium 9.8 8.7 - 10.5 mg/dL 03/10/2025 5:47 [facility] Alkaline Phosphatase 65 45 - 128 U/L 03/10/2025 5:47 PM [facility] Aspartate Aminotrans (AST) 47 10 - 55 U/L 03/10/2025 5:47 PM [facility] Alanine Aminotrans (ALT) 23 10 - 55 U/L 03/10/2025 5:47 PM EDT [facility] Bilirubin, Total 0.6 0.2 - 1.0 mg/dL 03/10/2025 5:47 PM EDT [facility] Protein, Total 7.4 6.3 - 8.3 g/dL 03/10/2025 5:47 PM EDT [facility] Albumin 3.6 3.5 - 5.0 g/dL 03/10/2025 5:47 PM EDT [facility] BUN/Creatinine Ratio 11 10.0 - 25.0 Ratio 03/10/2025 5:47 PM EDT [facility] Globulin 3.8 1.5 - 3.9 g/dL 03/10/2025 5:47 PM EDT [facility] Albumin/Globulin Ratio 0.9(L) 1.0 - 3.0 Ratio 03/10/2025 5:47 PM EDT [facility] Anion Gap 16 7 - 17 03/10/2025 5:47 PM EDT [facility] Blood Blood specimen / Unknown 03/10/2025 4:48 PM EDT 03/10/2025 4:55 PM EDT Franky Castañeda PA-C LAB BLOOD ORDERABLES Final R esult [address] [address], [address] [address] from Last 3 Months Insurance [facility] Advance Directives * Full Code (Latest Code Status on File) Date Activated Date Inactivated Comments 03/10/2025 9:30 PM Care Teams Creative Services Director Relationship Specialty Start Date End Date Emily Jurado PA-C [address] [place] [address] [place] [address] PCP - General 03/11/25
--- OUTSIDE RECORDS SUMMARY | 2025-05-27 08:22 | XMS_ITS | Clinical Summary ---
Author Organization [facility] Address [address] [place] [address] Phone Care Team Providers Care Supervisor Ski Production Name Role Phone Unavailable Primary Care Provider [...]
--- OUTSIDE RECORDS SUMMARY | 2025-05-27 08:22 | XMS_ITS | Encounter Summary ---
Author Organization [facility] Address [address] [place] [phone] Phone Care Team Providers Care Fare Collector Name Role Phone Monty De Los Santos MD Primary Care Provider Dane morillo Encounter Details Date Type Department Care Team (Late st Contact Info) Description 03/10/2017 Conversion Encounter [facility] - [address] [address] Social History Tobacco Use Types Packs/Day Years [...] on filedocumented in this encounter Care Teams Fare Collector Relationship Specialty Start Date End Date Monty De Los Santos MD PCP - General 03/04/17 09/09/22 documented as of this encounter
--- OUTSIDE RECORDS SUMMARY | 2025-05-27 08:22 | XMS_ITS | Clinical Summary ---
Author Organization [address] [facility] Address [address] [place] [address] Phone Care Team Providers Care Clin Tech Name Role Phone Emily Jurado Primary Care Provider [phone] Allergies No known active allergies Medications atorvastatin (LIPITOR) 10 mg tablet Take 1 tablet (10 mg total) by mouth 1 (one) time each day. 5 Active FreeStyle Desiree 3 Plus Sensor device 5 Active busPIRone (BUSPAR) 15 mg tablet Take 1 tablet (15 mg total) by mouth. 5 Active cefpodoxime (VANTIN) 200 mg tablet Take 1 tablet (200 mg total) by mouth 2 (two) times a day. 5 Active clonazePAM (KlonoPIN) 0.5 mg tablet Take 1 tablet (0.5 mg total) by mouth. 5 Active cloNIDine (CATAPRES) 0.1 mg tablet Take 1 tablet (0.1 mg total) by mouth 2 (two) times a day. for 90 days 5 Active DULoxetine (CYMBALTA) [address] capsule Take 1 capsule (60 mg total) by mouth 2 (two) times a day. 5 Active gabapentin (NEURONTIN) 300 mg capsule Take 1 capsule (300 mg total) by mouth. 5 Active lisinopriL (PRINIVIL,ZEST RIL) 10 mg tablet Take 1 tablet (10 mg total) by mouth 1 (one) time each day. 5 Active LORazepam (ATIVAN) 1 mg tablet Take 1 tablet (1 mg total) by mouth. 5 Active metFORMIN (GLUCOPHAGE) 1,000 mg tablet Take 1 tablet (1,000 mg total) by mouth 2 (two) times a day. 5 Active OXcarbazepine (TRILEPTAL) 300 mg tablet Take 1 tablet (300 mg total) by mouth 2 (two) times a day. 5 Active propranoloL (INDERAL) 10 mg tablet TAKE 2 TABLETS ORALLY 3 TIMES A DAY FOR 30 DAYS Active risperiDONE (RisperDAL) 0.5 mg tablet Take 1 tablet (0.5 mg total) by mouth 2 (two) times a day. 5 Active Ozempic 0.25 mg or 0.5 mg (2 mg/3 mL) injection pen 0.5 MG (0.736 ML) SUBCUTANEOUSLY EVERY WEEK FOR 4 WEEKS 5 Active triamcinolone (KENALOG) 0.5 % cream Apply 1 Application topically. Active ammonium lactate (AmLactin) 12 % lotion Apply topically if needed for dry skin. 400 g 5 026 Active nystatin (Nystop) 100,000 unit/gram powder Apply topically 1 (one) time each day. 60 g 1 5 025 Active Encounters Date Type Department Care Team Description 04/24/2025 9:00 AM EDT Consult Orthopedic Surgery - [address] [phone] Eugene Jones, DPM Dermatophytosis of nail (Primary Dx); Pain in toe of right foot; Pain in toe of left foot; Diabetic mononeuropathy simplex (CMS/HCC V24, CMS/HCC V28); Type II diabetes mellitus with peripheral circulatory disorder (CMS/HCC V24, CMS/HCC V28); Corns and callosities; Tinea pedis of both feet from Last 3 Months Social History Tobacco Use Types Packs/Day Years Used Date Smoking Tobacco: Never Assessed Sex and Gender Information Value Date Recorded Sex Assigned at Not on file Legal Sex Male 10:45 AM EDT Gender Identity Not on file Sexual Orientation Not on file Plan of Treatment Upcoming Encounters Date Type Department Care Team (Late st Contact Info) Description 07/29/2025 8:30 AM EST Office Visit Orthopedic Surgery - [place] [address] [place] [phone] Eugene Jones, DPM [address] [place] [address] Health Maintenance Due Date Last Done Comments Diabetes: Annual Foot Exam 1999 Diabetes: Annual Retina Eye Exam 1999 Pneumococcal Vaccine: Pediatrics (0 to 5 Years) and At-Risk Patients (6 to 49 Years) (1 of 2 - PCV) 2008 HPV Vaccines (1 - 3-dose SCDM series) 2016 Depression Screening 07/25/2024 Cholesterol Screening (Lipid Panel) 12/01/2024 HIV Screening 12/01/2024 Hepatitis C Screening 12/01/2024 Social Influencers of Health Screening 12/01/2024 Influenza Vaccine (#1) 2025 , 04/22/2023, 04/30/2022, Additional history exists Diabetes: Annual Urine Albumin-Creatinine Ratio (uACR) 04/24/2025 Diabetes: Blood Sugar Control Test (HGBA1C) 09/11/2025 03/11/2025 Diabetes: Annual GFR (Glomerular Filtration Rate) 03/11/2026 03/11/2025, 03/11/2025, 03/10/2025 Hypertension/CHF/CAD Annual BMP Blood Test 03/11/2026 03/11/2025, 03/11/2025, 03/10/2025 DTaP,Tdap,and Td Vaccines (8 - Td or Tdap) 06/03/2026 06/03/2016, 09/15/2001, 12/23/1994, Additional history exists RSV Immunization Adult Patients (1 - 1-dose 75+ series) 2064 HIB Vaccines Completed 11/22/1990 IPV Vaccines Completed 12/23/1994, 05/0 07/1990, 1989, Additional history exists MMR Vaccines Completed 12/23/1994, 11/22/1990 COVID-19 Vaccine Completed 05/31/2024, , 04/30/2022, Additional history exists Hepatitis B Vaccines Completed 05/31/2024, 03/07/2002, 09/15/2001, Additional history exists Hepatitis A Vaccines Aged Out No long er eligible based on patient's age to complete this topic Meningococcal ACWY Vaccine Aged Out N o longer eligible based on patient's age to complete this topic Meningococcal B Vaccine Aged Out No l onger eligible based on patient's age to complete this topic RSV Immunization Patients Under 20 months Aged Out No longer eligible based on patient's age to complete this topic Varicella Vaccines Aged Out No longer eligible based on patient's age to complete this topic Insurance [place]ICA[place] - [place] [facility] [address] [place] [address] Care Teams Clin Tech Relationship Specialty Start Date End Date Emily Jurado PA [address] [facility], [address] [place] [address] PCP - General 12/01/24
--- NOTE | 2025-05-27 08:31 | MHC.PC.OV ---
Vital Signs 05/27/25 08:33 05/27/25 08:55 Height 5 ft 9 in Weight 514 lb 8.942 oz BMI 76.0 BP 120/76 126/80 Blood Pressure Location Lt brachial Lt radial Position Sitting Sitting Pulse 88 Pulse Source Pulse Oximeter Temp 97.1 F Temp Source Temporal Artery Scan Pulse Oximetry (%) 98 Oxygen Delivery Method Room Air Intake Visit Reasons: f/u DM Intake Note: Patient is here to follow up on DM. 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: No Member Of The Legislative Assembly: Not Required per policy Accompanied by: Self / Same As Patient Allergies Sulfa (Sulfonamide Antibiotics) (SULFA (SULFONAMIDE ANTIBIOTICS)) Allergy (Unknown, Verified 05/27/25 08:33) RASH sulfamethoxazole (From BACTRIM) Allergy (Unknown, Verified 05/27/25 08:33) RASH trimethoprim (From BACTRIM) Allergy (Unknown, Verified 05/27/25 08:33) RASH amoxicillin Adverse Reaction (Unknown, Verified 05/27/25 08:33) UTI, Swelling in the genital area Medication List - Last Reviewed 05/27/25 by CHIQUI Salgado atorvastatin 10 mg PO DAILY blood sugar diagnostic (FreeStyle Lite Strips) As directed tests 2 X/day blood-glucose meter (FreeStyle Lite Meter kit) As directed 2 X/day blood-glucose sensor (FreeStyle Desiree 3 Plus Sensor device) As directed every 15 days buspirone 15 mg PO TID cholecalciferol (vitamin D3) 50 mcg PO DAILY 90 days clonazepam 0.5 mg PO TID clonidine HCl 0.1 mg PO BID 90 days clotrimazole 1% 1 appl topical bid 2 weeks duloxetine 60 mg PO BID 90 days fluconazole 150 mg PO Q3D gabapentin 300 mg PO TID lancets (FreeStyle Lancets) As directed tests 2 X/day lisinopril 20 mg PO DAILY lorazepam 1 mg PO DAILY PRN metformin 1,000 mg PO BID oxcarbazepine 300 mg PO BID pen needle, diabetic (BD Ultra-Fine [place] Pen Needle) 1 ea subcut DIRECTED 90 days propranolol 20 mg (2 x 10 mg) PO TID 30 days risperidone 0.5 mg PO BID semaglutide (Ozempic) 1 mg (0.75 mL) subcut QWEEK triamcinolone acetonide 0.5% 1 appl topical TID Tobacco use date assessed: 05/27/25 Dental Screening Dental Screen Date: 02/22/25 HPI f/u DM HPI Details 34-year-old male with past medical history of morbid obesity, vitamin-D deficiency, diabetes mellitus, hypertension, depression, anxiety, PTSD and hyperlipidemia last seen 02/2025 coming in for follow up. In review of the notes, he had liver elastography performed which revealed hepatic steatosis with hepatomegaly. He was seen by Podiatry 04/2025 given nystatin powder and ammonium lactate. He was seen by Psychiatry 03/2025 continue on current medication. Presenting for a follow-up visit for his chronic conditions. For his type 2 diabetes, he is followed by endocrinology and is managed with metformin and weekly Ozempic 1 mg injections recent A1c improvement from 8.6-6.8%. For hypertension, his lisinopril dose was increased from 10 mg to 20 mg during his ER visit. However, he has been without lisinopril for approximately one week due to a prescription refill issue. A recent liver ultrasound revealed fatty liver disease. He has lost seven pounds since his last visit and reports making dietary changes, such as substituting mashed potatoes for salad. [facility] Medical History Elevated LFTs Lymphedema Major depression, recurrent, chronic Chronic post-traumatic stress disorder (PTSD) Type 2 diabetes mellitus with morbid obesity Spinal stenosis Spondylolisthesis of lumbar region Anxiety Hypertension Prediabetes Vitamin D deficiency Surgical History No pertinent past surgical history Family History Father Hypertension Heart disease CVA (cerebral vascular accident) Mother Hypertension Diabetes Thyroid nodule Obesity Social History Housing: House Alcohol intake: current Alcohol intake frequency: holidays/special occasions only Patient Tobacco Use Status: Never used Tobacco e-Cigarette/Vaping Use: Never Used Second Hand Smoke Exposure: No service: No Current occupational status: disabled Cognitive needs: Yes (cane) Hearing needs: No Vision needs: No Questionnaire Thrive Questionnaire Date Thrive assessed: 11/16/24 I am a: Patient What is your living situation today?: I choose not to answer this question Within the past 12 months, did the food you bought not last and you didn't have the money to get more?: I choose not to answer this question Within the past 12 months, did you worry whether your food would run out before you got money to buy more?: I choose not to answer this question Do you have trouble paying for medicines?: I choose not to answer this question Do you have trouble getting transportation to medical appointments?: I choose not to answer this question Do you have trouble paying your heating and electricity bill?: I choose not to answer this question Do you have trouble taking care of your child, family member or friend?: I choose not to answer this question Do you have trouble with day-to-day activities such as bathing, preparing meals, shopping, managing finances, etc.?: I choose not to answer this question Are you currently unemployed and looking for a job?: I choose not to answer this question Are you interested in more education?: I choose not to answer this question Please select the resources that you would like help with: None Currently or been in a relationship where the following occur: I choose not to answer THRIVE Score: 0 CARLOS-7 AMB Questionnaire CARLOS-7 Date CARLOS - 7 assessed: 11/22/24 Source: Developed by Drs. Kyle Chiang, Padmaja Shen, Maximus Cyr and colleagues, with an educational pastor from [employer] other things you bake. Review of Systems Const Denies body aches, Denies chills, Denies fever(s), Denies headache(s) and Denies poor appetite Eyes Reports no additional complaints ENT Denies dizziness and Denies headache(s) Card Denies chest pain, Denies lightheadedness and Denies dyspnea Resp Denies cough and Denies dyspnea GI Denies abdominal pain, Denies nausea and Denies vomiting Reports no additional complaints Musc Reports no additional complaints and Denies abnormal gait Skin/Breast Reports system reviewed and no additional complaints, except as documented Neuro Denies abnormal gait, Denies dizziness and Denies headache(s) Psych Reports no additional complaints Physical exam (Primary Care) Vital Signs: Last Vital Signs Temp 97.1 F 05/27/25 08:33 Pulse 88 05/27/25 08:33 BP 126/80 05/27/25 08:55 Pulse Ox 98 05/27/25 08:33 Oxygen Delivery Method Room Air 05/27/25 08:33 BMI result Body Mass Index 76.0 Tobacco/Smoking Status: Tobacco use Status Tobacco use date assessed 05/27/25 05/27/25 08:33 Patient Tobacco Use Status Never used Tobacco 05/27/25 08:32 e-Cigarette/Vaping Use Never Used 05/27/25 08:32 Thrive Assessment: Date of Thrive Assessment Date Thrive assessed 11/16/24 05/27/25 08:32 Currently or been in a relationship where the following occur: I choose not to answer Const General: cooperative, healthy appearing, comfortable and no acute distress Orientation/consciousness: patient oriented x3 HENMT Head: Yes normocephalic Ears: hearing grossly normal bilaterally General nose exam: Normal external nose present Eyes General: appearance normal, both eyes and all related structures Conjunctivae: conjunctivae normal Neck Neck: Yes full ROM and Yes no lymphadenopathy Resp Effort & Inspection: normal respiratory effort Auscultation: clear to auscultation bilaterally, no crackles, no rales, no rhonchi and no wheezes Cardio Rate: regular rate Rhythm: regular rhythm Skin General skin exam: no rashes or lesions noted Neuro General: patient oriented x3 Gait exam (Neuro): Normal gait present Extrem General: Yes normal to inspection, Yes full ROM and No edema Psych Affect: normal affect Attitude: cooperative Insight: Good insight present (Psych) Judgement: Good judgement present (Psych) Results AMB Hemoglobin A1c AMB Hemoglobin A1c 6.8 % Last Edit by CHIQUI Salgado on 05/27/25 08:47 Results Reviewed Results Reviewed: Laboratory Last Values Hgb A1c (Clinic) 6.8 % (4.0-6.0) H 05/27/25 08:34 Coding Level of Care Code Est Pt Level 3 (22039) Diagnoses Type 2 diabetes mellitus with morbid obesity E11.69; E66.01 Mixed hyperlipidemia E78.2 Hyperlipidemia type: mixed hyperlipidemia Morbid (severe) obesity due to excess calories E66.01 Major depression, recurrent, chronic F33.9 Hepatic steatosis K76.0 Hypertension I10 Assessment & Plan Assessment & Plan (1) Type 2 diabetes mellitus with morbid obesity: Code(s): E11.69 - Type 2 diabetes mellitus with other specified complication; E66.01 - Morbid (severe) obesity due to excess calories Category: Medical Plan: Decrease the amount of carbohydrates such as pasta, bread, rice, and potatoes and limit the amount of sweets. Although fruits are generally healthy they should be eaten in moderation as they are still high in sugar. Hemoglobin A1c goal of less than 7%. Currently following with [facility] endocrinology on Ozempic 1mg and metformin 1000 mg b.i.d. A1c in the clinic today 6.8% today which has improved since last visit. He will continue to follow with endo. (2) Hyperlipidemia: Code(s): E78.5 - Hyperlipidemia, unspecified Category: Medical Qualifiers: Hyperlipidemia type: mixed hyperlipidemia Qualified Code(s): E78.2 - Mixed hyperlipidemia Plan: Avoid foods that are high in cholesterol such as red meat, fried foods, eggs and baked goods. Triglyceride goal of less than 150 and LDL goal of less than 100. Continue on atorvastatin 10. Last LDL within normal limits. Ordered for repeat blood work before next visit (3) Morbid (severe) obesity due to excess calories: Code(s): E66.01 - Morbid (severe) obesity due to excess calories Category: Medical Plan: Healthy diet and regular exercise is encouraged. 7 lb weight loss since last visit. (4) Major depression, recurrent, chronic: Code(s): F33.9 - Major depressive disorder, recurrent, unspecified Category: Medical Plan: Patient is currently following with Psychiatry on oxcarbazepine, lorazepam, duloxetine, clonazepam and BuSpar. (5) Hepatic steatosis: Code(s): K76.0 - Fatty (change of) liver, not elsewhere classified Category: Medical Plan: Healthy diet and regular exercise is encouraged. (6) Hypertension: Code(s): I10 - Essential (primary) hypertension Category: Medical Plan: Continue on current blood pressure medication. Avoid salt intake and encourage healthy diet and regular exercise. The ED recently increased his Lisinopril to 20mg and has been doing well on this change. He has been out of this medication for a few days however blood pressure remains normal. We will continue on 20mg at this time however if blood pressure is too low or if patient is symptomatic we can decrease to 10mg. Plan This note was constructed using voice recognition software. While every effort has been made to ensure accuracy and water treatment plant supervisor, still areas may have been included sometimes these areas may affect the content or meeting of the given symptoms. Total time spent caring for the patient today was 20 minutes. This includes time spent before the visit reviewing the chart, time spent during the visit, and time spent after the visit and documentation. Patient was informed and verbally consented to the use of an ambient scribe for clinic note documentation during this visit. Orders: Orders AMB Hemoglobin A1c Today E11.69 - Type 2 diabetes mellitus with other specified complication, E66.01 - Morbid (severe) obesity due to excess calories Comprehensive Met. Panel 3 Months R79.89 - Other specified abnormal findings of blood chemistry Hemoglobin A1c 3 Months E11.65 - Type 2 diabetes mellitus with hyperglycemia Lipid Panel 3 Months E78.00 - Pure hypercholesterolemia, unspecified Medications: New lisinopril 20 mg PO DAILY 90 tabs 0RF
[2025-05-27 08:33] VITALS: BP 120/76; PULSE 88; TEMP 36.2; O2SAT 98; BMI 76.0
[2025-05-27 08:55] VITALS: BP 126/80
== END 2025-05-27 09:04 | disposition home or self-care (01) ==
LOC: HO.HMCH 08:09
DX: E11.69 Type 2 diabetes mellitus with other specified complication (principal); E66.01 Morbid (severe) obesity due to excess calories; Z68.45 Body mass index [BMI] 70 or greater, adult; E78.2 Mixed hyperlipidemia; F33.9 Major depressive disorder, recurrent, unspecified; K76.0 Fatty (change of) liver, not elsewhere classified; I10 Essential (primary) hypertension

== ENCOUNTER → 2025-05-27 08:08 | Outpatient (BNVA) | payer OTHER, MEDICAID, SELFPAY | DX: E11.69 Type 2 diabetes mellitus with other specified complication (principal); E66.01 Morbid (severe) obesity due to excess calories; E78.2 Mixed hyperlipidemia; I10 Essential (primary) hypertension; F33.9 Major depressive disorder, recurrent, unspecified; K76.0 Fatty (change of) liver, not elsewhere classified; Z68.45 Body mass index [BMI] 70 or greater, adult | CPT/HCPCS: 83036 ==

== ENCOUNTER 2025-05-29 16:41 | Outpatient (AMB) | payer OTHER, MEDICAID, SELFPAY ==
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
--- OUTSIDE RECORDS SUMMARY | 2025-05-29 19:07 | XMS_ITS | Encounter Summary ---
Author Organization [facility] Address [address] [place] [id number] Phone Care Team Providers Care Lock Technician Name Role Phone Mnoty De Los Santos MD Primary Care Provider Dane morillo Encounter Details Date Type Department Care Team (Late st Contact Info) Description 03/10/2017 Conversion Encounter [facility] - [address] [address] Social History Tobacco Use Types Packs/Day Years [...] on filedocumented in this encounter Care Teams Lock Technician Relationship Specialty Start Date End Date Monty De Los Santos MD PCP - General 03/04/17 09/09/22 documented as of this encounter
--- OUTSIDE RECORDS SUMMARY | 2025-05-29 19:07 | XMS_ITS | Clinical Summary ---
Author Organization [facility] Address [address] [place] [address] Phone Care Team Providers Care Chart Changer Name Role Phone Emily Jurado Primary Care Provider [phone] Allergies No known active allergies Medications atorvastatin [...] 9:00 AM EDT Consult Orthopedic Surgery - [address] [id number] Eugene Jones, DPM Dermatophytosis of [...] AM EST Office Visit Orthopedic Surgery - [place] [address] [phone] Eugene Jones, DPM [address] [phone] Health Maintenance Due Date Last [...] Vaccines Completed 11/22/1990 IPV Vaccines Completed 12/23/1994, 05/07/1990, 1989, Additional history exists MMR Vaccines Completed [...] complete this topic Insurance MEDICAID - [place] [facility] [address] [place] [address] Care Teams Chart Changer Relationship Specialty Start Date End Date Emily Jurado PA [address] [facility], [address] [place] [address] PCP - General 12/01/24
--- OUTSIDE RECORDS SUMMARY | 2025-05-29 19:07 | XMS_ITS | Encounter Summary ---
Author Organization [facility] Address [address] [place] [phone] Phone Care Team Providers Care Cafeteria Monitor Name Role Phone Monty De Los Santos MD Primary Care Provider Dane morillo Encounter Details Date Type Department Care Team (Late st Contact Info) Description 03/02/2011 Documentation [facility] [address] [place], [place] [id number] Family Medicine, Physician [address] [place] [address] Social History Tobacco Use Types Packs/Day Years [...] on filedocumented in this encounter Care Teams Cafeteria Monitor Relationship Specialty Start Date End Date Monty De Los Santos MD PCP - General 03/04/17 09/09/22 documented as of this encounter
--- OUTSIDE RECORDS SUMMARY | 2025-05-29 19:07 | XMS_ITS | Clinical Summary ---
Author Organization [facility] Address [address] [place] [address] Care Team Providers Care Chart Reader Name Role Phone Emily Jurado PA-C Primary Care Provider [phone] Allergies Active Allergy Reactions Criticality Noted Date [...] iso morbid obesity. Ultrasound was performed in [facility] of left lower extremity due to [...] iso morbid obesity. Ultrasound was performed in [facility] of left lower extremity due to numbness and tingling. No DVT was definitively seen although vasculature was poorly visualized due to obesity. No PE seen on CTPA. - Will continue gabapentin 300 mg 3 times daily Community acquired pneumonia of right middle lob e of lung 03/10/2025 Assessment & Plan (03/10/2025 9:46 PM EDT): Patient presented as a transfer from [facility] for 7 to 10 days of cough with progressive shortness of breath and fevers. He was initially diagnosed with a viral URI after an x-ray outpatient. He was treated with Augmentin for a possible sinus infection but his symptoms persisted and he was developing worsening shortness of breath. He had an elevated D-dimer at [facility] and was transferred to for CTPA. [...] iso morbid obesity. Ultrasound was performed in [facility] of left lower extremity due to numbness and tingling. No DVT was definitively seen although vasculature was poorly visualized due to obesity. No PE seen on CTPA. - Will continue gabapentin 300 mg 3 times daily Encounters Date Type Department Care Team Description 03/10/2025 7:20 PM EDT Ancillary Procedure [facility] Emergency Department [address] [place], [place] [id number] Arnold He MD 03/10/2025 4:38 PM EDT - 03/11/2025 4:10 PM EDT Hospital Encounter [facility] Emergency Department [address] [place], [place] [id number] Arnold He MD Morse, Emily, MD Hamed, [...] Obliteration of lymphatic vessel; Chronic intractable pain; jail (current) use of oral hypoglycemic drugs; Long-term current use of injectable noninsulin antidiabetic medication Discharge Disposition: Home or Self Care 03/10/2025 Travel from Last 3 Months Social History Tobacco Use Types Packs/Day Years Used Date Smoking Tobacco: Never Assessed [facility] Utilities Answer Date Recorded In the past [...] any time in the past 12 m [facility], were you homeless or living in a fci (including now)? No 03/11/2025 Sex and Gender [...] A1C 8.2(H) <5.7 % 03/11/2025 8:28 AM [facility] Comment: A1c% Interpretation 5.7 - 6.0 Increase risk of diabetes 6.1 - 6.4 Higher risk of diabetes > or = 6.5 Consistent with diabetes Diabetes Care, 33(Supp 1):S1-S61, 2010 Estimated Average Glucose 189 mg/dL 03/11/2025 8:28 AM [facility] Blood Blood specimen / Unknown 03/11/2025 7:17 AM EDT 03/11/2025 7:49 AM EDT us Mayte Shaikh MD LAB BLOOD ORDERABLES Final Resul t [address] [address], [address] [address] * (ABNORMAL) Complete Blood Count, with Differential (03/11/2025 7:17 AM EDT) Only the most recent of2 resultswithin the time period is included. White Blood Cell Count 8.3 4.0 - 11.0 Thou/uL 03/11/2025 8:00 AM [facility] Platelet Count 258 150 - 450 Thou/uL 03/11/2025 8:00 AM [facility] Hemoglobin 12.8(L) 13.0 - 17.7 g/dL 03/11/2025 8:00 AM [facility] Hematocrit 38.3(L) 39.0 - 54.0 % 03/11/2025 8:00 AM [facility] Red Blood Cell Count 4.40(L) 4.50 - 6.20 Mil/uL 03/11/2025 8:00 AM [facility] MCV 87 80 - 100 fL 03/11/2025 8:00 AM [facility] MCH 29.1 26.0 - 34.0 pg 03/11/2025 8:00 AM [facility] MCHC 33.4 30.0 - 36.0 g/dL 03/11/2025 8:00 AM [facility] RDW 12.7 11.5 - 14.5 % 03/11/2025 8:00 AM [facility] MPV 9.8 7.5 - 12.5 fL 03/11/2025 8:00 AM [facility] Neutrophils Auto 55.7 % 03/11/20 8:00 AM [facility] Immature Granulocytes 1.0 % 03/11/2025 8:00 AM [facility] Lymphocytes Auto 23.1 % 03/11/20 8:00 AM [facility] Monocytes Auto 12.3 % 03/11/2025 8:00 AM [facility] Eosinophils Auto 7.4 % 03/11/20 8:00 AM [facility] Basophils Auto 0.5 % 03/11/2025 8:00 AM [facility] Abs Neutrophils Auto 4.60 2.00 - 7.50 Thou/uL 03/11/2025 8:00 AM [facility] Abs Immature Granulocytes 0.08 0.00 - 0.10 Thou/uL 03/11/2025 8:00 AM [facility] Abs Lymphocytes Auto 1.91 1.50 - 4.50 Thou/uL 03/11/2025 8:00 AM [facility] Abs Monocytes Auto 1.02 0.20 - 1.50 Thou/uL 03/11/2025 8:00 AM [facility] Abs Eosinophils Auto 0.61 0.00 - 0.70 Thou/uL 03/11/2025 8:00 AM [facility] Abs Basophils Auto 0.04 0.00 - 0.20 Thou/uL 03/11/2025 8:00 AM [facility] Blood Blood specimen / Unknown 03/11/2025 7:17 AM EDT 03/11/2025 7:49 AM EDT us Mayte Shaikh MD LAB BLOOD ORDERABLES Final Resul t [address] [address], [address] [address] * Magnesium (03/11/2025 7:17 AM EDT) Magnesium 1.9 1.6 - 2.7 mg/dL 03/11/2025 8:28 AM [facility] Blood Blood specimen / Unknown 03/11/2025 7:17 AM EDT 03/11/2025 7:49 AM EDT Mayte Shaikh MD LAB BLOOD ORDERABLES Final Resul t [address] [address], [facility] [address] [place] [address] * (ABNORMAL) Basic Metabolic Panel (03/11/2025 7:17 AM EDT) Glucose 215(H) 65 - 99 mg/dL 03/11/2025 8:28 AM [facility] Comment:Fasting: <100 mg/dL, Non-Fasting: <200 mg/dL (ADA 2004) Blood Urea Nitrogen (BUN) 9 8 - 21 mg/dL 03/11/2025 8:28 AM [facility] Creatinine 0.8 0.5 - 1.3 mg/dL 03/11/2025 8:28 AM [facility] eGFR >90 >59 03/11/2025 8:28 AM [facility] Comment:CKD-EPI (2020) in mL /min/1.73 sq meters. Sodium 134(L) 136 - 145 mmol/L 03/11/2025 8:28 AM [facility] Potassium 3.8 3.4 - 5.3 mmol/L 03/11/2025 8:28 AM [facility] Comment:Specimen hemolyzed. Results may be artifactually elevated. Chloride 99 98 - 107 mmol/L 03/11/2025 8:28 AM [facility] CO2 22 22 - 33 mmol/L 03/11/2025 8:28 AM [facility] Anion Gap 13 7 - 17 03/11/2025 8:28 AM [facility] Calcium 9.2 8.7 - 10.5 mg/dL 03/11/2025 8:28 AM [facility] BUN/Creatinine Ratio 11 10.0 - 25.0 Ratio 03/11/2025 8:28 AM [facility] Blood Blood specimen / Unknown 03/11/2025 7:17 AM EDT 03/11/2025 7:49 AM EDT us Mayte Shaikh MD LAB BLOOD ORDERABLES Final Resul t [address] [address], [address] [address] * LACTIC ACID, PLASMA (03/10/2025 10:46 PM EDT) Only the most recent of2 resultswithin the time period is included. Lactic Acid 1.1 0.5 - 1.9 mmol/L 03/10/2025 11:39 PM EDT [facility] 03/10/2025 10:4 6 PM EDT 03/10/2025 11:18 PM EDT us Arnold He MD LAB BLOOD ORDERABLES Final Resul t Performing Organization Address City/[facility]/ZIP Co de Phone Number [address] [address], [address] [address] * Blood Culture (03/10/2025 8:22 PM EDT) Culture Sterile after 5 days 03/15/2025 7:47 AM EDT [facility] Blood Blood specimen / Unknown 03/10/2025 8:22 PM EDT 03/10/2025 9:28 PM EDT Comment:Blood us Arnold He MD LAB BLOOD ORDERABLES Final Resul t [facility] [address] [place] [address], * CTA Chest for P.E. (03/10/2025 7:12 [...] visualized splenomegaly. VTE: Negative. Franky Castañeda PA-C [facility] ORDERABLES Final Resu lt * High [...] ORDERABLES Final R esult Performing Organization Address City/State/[facility] Co de Phone Number [address] [address], [address] [address] * Ed Performed [employer] [facility] (03/10/2025 5:26 PM EDT) Anatomical Region Laterality Modality Ultrasound 03/10/2025 5:05 PM EDT Narrative 03/10/2025 7:15 PM EDT Cardiac ([facility]) Exam Information: Exam Category: Diagnostic (Artificial Log Machine Operator) Exam Occurrence: Initial exam Indication(s) for Exam: [...] ( ED) Exam Information: Exam Category: Diagnostic (Artificial Log Machine Operator) Exam Occurrence: Initial exam Indication(s) for Exam: [...] ECG 12 lead (03/10/2025 5:09 PM EDT) [facility] Ventricular rate 99 BPM EKG [facility] Atrial rate 99 BPM EKG [facility] P-R interval 148 ms EKG [facility] QRS duration 82 ms EKG [facility] Q-T interval 320 ms EKG [facility] QTC calculation (Bazett) 411 ms EKG [facility] P axis 48 degrees EKG [facility] R axis 62 degrees EKG [facility] T axis 21 degrees EKG [facility] 03/10/2025 5:09 PM EDT Narrative G [facility] - 03/10/2025 9:10 PM EDT Normal sinus rhythm Normal ECG No previous ECGs available Confirmed by DO Serrano Kyla ([id number]) on 03/10/2025 9:10:30 PM Procedure Note Genevieve Serrano DO - 03/10/2025 Normal sinus rhythm Normal ECG No previous ECGs available Confirmed by DO Serrano Kyla ([id number]) on 03/10/2025 9:10:30 PM us Franky Castañeda PA-C ECG ORDERABLES [facility] * proBNP, N-terminal (BNP) (03/10/2025 4:48 PM EDT) [facility] proBNP, N-terminal 39 <125 pg/mL 03/10/2025 5:47 PM EDT [facility] Blood Blood specimen / Unknown 03/10/2025 4:48 PM EDT 03/10/2025 4:55 PM EDT us Franky Castañeda PA-C LAB BLOOD ORDERABLES Final R esult [facility] [address] [place] [address], [facility] [address] [place] [address] * (ABNORMAL) Comprehensive Metabolic Panel (03/10/2025 4:48 [...] 3.4 - 5.3 mmol/L 03/10/2025 5:47 PM [facility] Chloride 97(L) 98 - 107 mmol/L 03/10/2025 5:47 PM [facility] CO2 23 22 - 33 mmol/L 03/10/2025 5:47 PM [facility] Calcium 9.8 8.7 - 10.5 mg/dL 03/10/2025 5:47 PM [facility] Alkaline Phosphatase 65 45 - 128 U/L 03/10/2025 5:47 PM [facility] Aspartate Aminotrans (AST) 47 10 - 55 U/L 03/10/2025 5:47 PM [facility] Alanine Aminotrans (ALT) 23 10 - [...] PA-C LAB BLOOD ORDERABLES Final R esult [address] [address], [address] [address] from Last 3 Months Insurance [facility] Advance Directives * Full Code (Latest Code Status on File) Date Activated Date Inactivated Comments 03/10/2025 9:30 PM Care Teams Chart Reader Relationship Specialty Start Date End Date Emily Jurado PA-C [address] [place] [address] [place] [address] PCP - General 03/11/25
--- OUTSIDE RECORDS SUMMARY | 2025-05-29 19:07 | XMS_ITS | Clinical Summary ---
Author Organization [facility] Address [address] [place] [address] Phone Care Team Providers Care Plant Buyer Name Role Phone Unavailable Primary Care Provider [...]
== END 2025-05-29 16:43 | disposition home or self-care (01) ==
LOC: HO.HOP 16:41
PROVIDERS: Visit Provider Psychiatry & Neurology Psychiatry
DX: F43.12 Post-traumatic stress disorder, chronic (principal); F33.9 Major depressive disorder, recurrent, unspecified
CPT/HCPCS: 99213

== ENCOUNTER 2025-06-18 08:20 | Outpatient (AMB) | payer OTHER, MEDICAID, SELFPAY ==
--- NOTE | 2025-06-18 08:22 | A.OFFVIS_ITS ---
Vital Signs 06/18/25 08:25 Height 5 ft 9 in Weight 517 lb 3.271 oz BMI 76.4 BP 132/72 Blood Pressure Location Rt radial Position Sitting Pulse 102 H Pulse Source Pulse Oximeter Pulse Oximetry (%) 98 Oxygen Delivery Method Room Air Intake Visit Reasons: Type II diabetes Intake Note: Patient present today to follow up on Type 2 Diabetes Mellitus. Last Diabetic Eye exam: Last year, needs to make an appointment Last Podiatry Visit: Does not see a Pipe Out Worker Random Glucose: 108 mg/dl HgA1C: 6.8% 05/27/2025 Tool And Die Maker Required: No Accompanied by: Mother Allergies Sulfa (Sulfonamide Antibiotics) (SULFA (SULFONAMIDE ANTIBIOTICS)) Allergy (Unknown, Verified 06/18/25 08:26) RASH sulfamethoxazole (From BACTRIM) Allergy (Unknown, Verified 06/18/25 08:26) RASH trimethoprim (From BACTRIM) Allergy (Unknown, Verified 06/18/25 08:26) RASH amoxicillin Adverse Reaction (Unknown, Verified 06/18/25 08:26) UTI, Swelling in the genital area HPI Comments Details: This is a 34-year-old male with a past medical history of type 2 diabetes, hyperlipidemia, hypertension, vitamin-D deficiency, lymphedema, depression, anxiety, agoraphobia and PTSD presenting for diabetic management. He was initially diagnosed with type 2 diabetes and approximately 2020. Hemoglobin A1c 6.8% 05/27/2025 down from 8.6%. He is severely needle phobic and does not use a glucometer. He does not have CGM with him today. Sensor fell off. He is waiting for the pharmacy to refill. Current medication regimen: Ozempic 1 mg weekly. Metformin 1000 mg twice daily. Past medications: Mounjaro discontinued due to nausea. Denies hypoglycemia. Denies symptoms of hyperglycemia. Complications: Neuropathy, followed by [facility]. Wants to transfer to [facility]. He had the liver ultrasound completed on 05/24/2025 which demonstrated hepatomegaly and hepatic steatosis. Elastography values were low ruling against advanced chronic liver disease. ROS: Constitutional: No fevers, chills or night sweats. Respiratory: No shortness of breath Cardiovascular: No chest pain Gastrointestinal: No anorexia, nausea, vomiting or diarrhea. No abdominal pain or blood in stool. Endocrine: No cold or heat intolerance. No polyuria or polydipsia. Physical exam: Constitutional: Alert, in no distress. Neck: Supple, Full range of motion. No lymphadenopathy. No palpable thyroid masses. Respiratory: Clear to auscultation. Cardiovascular: S1 S2 regular. No murmurs. Neurologic: No focal neurological deficits. Feet: Warm and well perfused.No ulcers or wounds or rashes. Intact DP pulses. [facility] Medical History Elevated LFTs Lymphedema Major depression, recurrent, chronic Chronic post-traumatic stress disorder (PTSD) Type 2 diabetes mellitus with morbid obesity Spinal stenosis Spondylolisthesis of lumbar region Anxiety Hypertension Prediabetes Vitamin D deficiency Surgical History No pertinent past surgical history Family History Father Hypertension Heart disease CVA (cerebral vascular accident) Mother Hypertension Diabetes Thyroid nodule Obesity Social History Housing: House Alcohol intake: current Alcohol intake frequency: holidays/special occasions only Patient Tobacco Use Status: Never used Tobacco e-Cigarette/Vaping Use: Never Used Second Hand Smoke Exposure: No service: No Current occupational status: disabled Cognitive needs: Yes (cane) Hearing needs: No Vision needs: No Physical Exam Vital Signs: Last Vital Signs Pulse 102 H 06/18/25 08:25 BP 132/72 06/18/25 08:25 Pulse Ox 98 06/18/25 08:25 Oxygen Delivery Method Room Air 06/18/25 08:25 BMI result Body Mass Index 76.4 Results Reviewed Results Reviewed: Laboratory Last Values Glucose (Clinic) 108 mg/dL (60-115) 06/18/25 08:30 Laboratory Tests 01/31/25 03/10/25 08:10 09:22 Plt Count 367 249 D Creatinine 0.76 0.87 Estimated GFR > 60 > 60 AST 49 H 44 H ALT 43 H 18 Triglycerides 197 H Cholesterol 137 LDL Cholesterol, Calc 54 HDL Cholesterol 44 Vitamin B12 414 TSH 3.32 Assessment & Plan Assessment & Plan (1) Type 2 diabetes mellitus with morbid obesity: Code(s): E11.69 - Type 2 diabetes mellitus with other specified complication; E66.01 - Morbid (severe) obesity due to excess calories Category: Medical (2) Hypertension: Code(s): I10 - Essential (primary) hypertension Category: Medical Qualifiers: Hypertension type: primary hypertension Qualified Code(s): I10 - Essential (primary) hypertension (3) Hyperlipidemia: Code(s): E78.5 - Hyperlipidemia, unspecified Category: Medical Qualifiers: Hyperlipidemia type: mixed hyperlipidemia Qualified Code(s): E78.2 - Mixed hyperlipidemia Plan In summary this is a 34-year-old male with controlled type 2 diabetes currently on Ozempic and metformin. Discussed pathophysiology of Type II Diabetes Mellitus with the patient in detail.? I explained the predatory animal exterminator risks and complications associated with uncontrolled diabetes including nephropathy, neuropathy, peripheral vascular disease, retinopathy, increased risk of heart disease and stroke.? Discussed lifestyle modification with the patient. Recommended 30 minutes of moderately vigorous exercise 5 days per week to promote weight loss. Continue metformin 1000 mg twice a day. The patient would like to stay on Ozempic 1 mg weekly for now. We discussed the option of increasing the dose to promote weight loss. If he would like to try this he will contact the office. Continue lisinopril for hypertension and renal protection. Continue atorvastatin for hyperlipidemia. Referred to [facility]. Referred for diabetic eye exam. Follow up in 3 months for type 2 diabetes. Orders: Referrals Podiatry Referral E11.69 - Type 2 diabetes mellitus with other specified complication, E66.01 - Morbid (severe) obesity due to excess calories, Z91.89 - Other specified personal risk factors, not elsewhere classified Ophthalmology Referral E11.69 - Type 2 diabetes mellitus with other specified complication, E66.01 - Morbid (severe) obesity due to excess calories Coding Level of Care Code Est Pt Level 4 (05814) Complex visit Add On G2211 Diagnoses Type 2 diabetes mellitus with morbid obesity E11.69; E66.01 Primary hypertension I10 Hypertension type: primary hypertension Mixed hyperlipidemia E78.2 Hyperlipidemia type: mixed hyperlipidemia
[2025-06-18 08:25] VITALS: BP 132/72; PULSE 102; O2SAT 98; BMI 76.4
[2025-06-18 08:36] LABS: Glucose, Whole Blood 108 mg/dL (60-115)
--- OUTSIDE RECORDS SUMMARY | 2025-06-18 08:37 | XMS_ITS | Clinical Summary ---
Author Organization [facility] Address [address] [place] [address] Phone Care Team Providers Care Rn Resource Nurse Name Role Phone Unavailable Primary Care Provider [...]
--- OUTSIDE RECORDS SUMMARY | 2025-06-18 08:37 | XMS_ITS | Encounter Summary ---
Author Organization [facility] Address [address] [place] [address] Phone Care Team Providers Care Hot Plate Press Operator Name Role Phone Monty De Los Santos MD Primary Care Provider Dane morillo Encounter Details Date Type Department Care Team (Late st Contact Info) Description 03/10/2017 Conversion Encounter [facility] - [address] [address] Social History Tobacco Use Types Packs/Day Years [...] on filedocumented in this encounter Care Teams Hot Plate Press Operator Relationship Specialty Start Date End Date Monty De Los Santos MD PCP - General 03/04/17 09/09/22 documented as of this encounter
--- OUTSIDE RECORDS SUMMARY | 2025-06-18 08:37 | XMS_ITS | Clinical Summary ---
Author Organization [facility] Address [address] [place] [address] Care Team Providers Care Automatic Coin Machine Mechanic Name Role Phone Emily Jurado PA-C Primary Care Provider [phone] Allergies Active Allergy Reactions Criticality Noted Date [...] iso morbid obesity. Ultrasound was performed in [facility] of left lower extremity due to numbness [...] iso morbid obesity. Ultrasound was performed in [facility] of left lower extremity due to numbness and tingling. No DVT was definitively seen although vasculature was poorly visualized due to obesity. No PE seen on CTPA. - Will continue gabapentin 300 mg 3 times daily Community acquired pneumonia of right middle lob e of lung 03/10/2025 Assessment & Plan (03/10/2025 9:46 PM EDT): Patient presented as a transfer from [facility] for 7 to 10 days of cough with progressive shortness of breath and fevers. He was initially diagnosed with a viral URI after an x-ray outpatient. He was treated with Augmentin for a possible sinus infection but his symptoms persisted and he was developing worsening shortness of breath. He had an elevated D-dimer at [facility] and was transferred to for CTPA. CTPA [...] iso morbid obesity. Ultrasound was performed in [facility] of left lower extremity due to numbness and tingling. No DVT was definitively seen although vasculature was poorly visualized due to obesity. No PE seen on CTPA. - Will continue gabapentin 300 mg 3 times daily Social History Tobacco Use Types Packs/Day Years Used Date Smoking Tobacco: Never Assessed [facility] Utilities Answer Date Recorded In the past 12 months has th e [employer], oil, or water [employer] threatened to shut off services in your [...] any time in the past 12 m [facility], were you homeless or [...] Procedure Name Priority Date/Time Associated Diagnosis Comments HEMOGLOBIN A1C WITH ESTIMATED AVERAGE GLUCOSE STAT 03/11/2025 7:17 AM EDT BASIC METABOLIC PANEL STAT 03/11/2025 7:17 AM EDT from Last 3 Months or Most Recently Relevant to Health Maintenance Results * (ABNORMAL) Hemoglobin A1c with Estimated Average Glucose (03/11/2025 7:17 AM EDT) Hemoglobin A1C 8.2(H) <5.7 % 03/11/2025 8:28 AM EDT [facility] Comment: A1c% Interpretation 5.7 - 6.0 Increase risk of diabetes 6.1 - 6.4 Higher risk of diabetes > or = 6.5 Consistent with diabetes Diabetes Care, 33(Supp 1):S1-S61, 2010 Estimated Average Glucose 189 mg/dL 03/11/2025 8:28 AM T [facility] Blood Blood specimen / Unknown 03/11/2025 7:17 AM EDT 03/11/2025 7:49 AM EDT us Mayte Shaikh MD LAB BLOOD ORDERABLES [place] [address], [place] [address] * (ABNORMAL) Basic Metabolic Panel (03/11/2025 7:17 AM EDT) Glucose 215(H) 65 - 99 mg/dL 03/11/2025 8:28 AM T [facility] Comment:Fasting: <100 mg/dL, Non-Fasting: <200 mg/dL (ADA 2004) Blood Urea Nitrogen (BUN) 9 8 - 21 mg/dL 03/11/2025 8:28 AM T [facility] Creatinine 0.8 0.5 - 1.3 mg/dL 03/11/2025 8:[address] [facility] eGFR >90 >59 03/11/2025 8:28 AM T [facility] Comment:CKD-EPI (2020) in mL /min/1.73 sq meters. Sodium 134(L) 136 - 145 mmol/L 03/11/2025 8:28 AM EDT [facility] Potassium 3.8 3.4 - 5.3 mmol/L 03/11/2025 8:28 AM EDT [facility] Comment:Specimen hemolyzed. Results may be artifactually elevated. Chloride 99 98 - 107 mmol/L 03/11/2025 8:28 AM EDT [facility] CO2 22 22 - 33 mmol/L 03/11/2025 8:28 AM EDT [facility] Anion Gap 13 7 - 17 03/11/2025 8:28 AM EDT [facility] Calcium 9.2 8.7 - 10.5 mg/dL 03/11/2025 8:28 AM EDT [facility] BUN/Creatinine Ratio 11 10.0 - 25.0 Ratio 03/11/2025 8:28 AM T [facility] Blood Blood specimen / Unknown 03/11/2025 7:17 AM EDT 03/11/2025 7:49 AM EDT us Mayte Shaikh MD LAB BLOOD ORDERABLES Final Resul t [address] [address], [address] [address] from Last 3 Months or Most Recently Relevant to Health Maintenance Insurance [facility] Advance Directives * Full Code (Latest Code Status on File) Date Activated Date Inactivated Comments 03/10/2025 9:30 PM Care Teams Automatic Coin Machine Mechanic Relationship Specialty Start Date End Date Emily Jurado PA-C [address] [place] [address] [place] [address] PCP - General 03/11/25
--- OUTSIDE RECORDS SUMMARY | 2025-06-18 08:37 | XMS_ITS | Clinical Summary ---
Author Organization 175 [facility] Address [address] [place] [address] Phone Care Team Providers Care Board Operator Name Role Phone Emily Jurado Primary Care Provider [phone] Allergies No known active allergies Medications atorvastatin [...] 9:00 AM EDT Consult Orthopedic Surgery - [address] [address] Eugene Jones, DPM Dermatophytosis of [...] AM EST Office Visit Orthopedic Surgery - [place] [address] [address] Eugene Jones, DPM [address] [address] Health Maintenance Due Date Last [...] Influencers of Health Screening 12/01/2024 COVID-19 Vaccine ( season) 2025 05/31/2024, 04/22/2023, 04/30/2022, Additional history exists Influenza Vaccine (#1) 2025 , 04/22/2023, 04/30/2022, [...] Completed 12/23/1994, 11/22/1990 Hepatitis B Vaccines Completed 05/31/2024, 03/07/2002, 09/15/2001, [...] fective 2024-Present) Name:SANJEEV HOWARD Relation to Subscriber:Self Name:Sanjeev Howard Payer ID:[id number] Group ID:Not on file Type:Not on file Address: [facility] ATTN:[employer] [address] [place] [id number] [place] [address] Care Teams Board Operator Relationship Specialty Start Date End Date Emily Jurado PA 2 [facility], [address] [place] [address] PCP - General 12/01/24
--- OUTSIDE RECORDS SUMMARY | 2025-06-18 08:37 | XMS_ITS | Encounter Summary ---
Author Organization [facility] Address [address] [place] [address] Phone Care Team Providers Care Marriage Counselor Minister Name Role Phone Monty De Los Santos MD Primary Care Provider Dane morillo Encounter Details Date Type Department Care Team (Late st Contact Info) Description 03/02/2011 Documentation [facility] [address] [place], [place] [id number] Family Medicine, Physician [address] [place] [address] Social History Tobacco Use Types Packs/Day Years [...] on filedocumented in this encounter Care Teams Marriage Counselor Minister Relationship Specialty Start Date End Date Monty De Los Santos MD PCP - General 03/04/17 09/09/22 documented as of this encounter
== END 2025-06-18 08:58 | disposition home or self-care (01) ==
LOC: HO.ENCR 08:21
PROVIDERS: Visit Provider Physician Assistant Medical
DX: E11.69 Type 2 diabetes mellitus with other specified complication (principal); E66.01 Morbid (severe) obesity due to excess calories; I10 Essential (primary) hypertension; E78.2 Mixed hyperlipidemia

== ENCOUNTER → 2025-06-18 08:20 | Outpatient (BNVA) | payer OTHER, MEDICAID, SELFPAY | PROVIDERS: Visit Provider Physician Assistant Medical | DX: E11.69 Type 2 diabetes mellitus with other specified complication (principal); E66.01 Morbid (severe) obesity due to excess calories | CPT/HCPCS: 82947 ==

== ENCOUNTER 2025-07-04 15:11 | Outpatient (AMB) | payer OTHER, MEDICAID, SELFPAY ==
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
--- OUTSIDE RECORDS SUMMARY | 2025-07-04 22:43 | XMS_ITS | Clinical Summary ---
Author Organization [facility] Address [address] [place] [address] Phone Care Team Providers Care Continuity Tester Name Role Phone Unavailable Primary Care Provider [...]
--- OUTSIDE RECORDS SUMMARY | 2025-07-04 22:43 | XMS_ITS | Clinical Summary ---
Author Organization 175 [facility] Address [address] [place] [address] Phone Care Team Providers Care Criminal Attorney Name Role Phone Emily Jurado Primary Care Provider [phone] Allergies No known active allergies Medications atorvastatin (LIPITOR) 10 mg tablet Take 1 tablet (10 mg total) by mouth 1 (one) time each day. 02/28/20 25 Active FreeStyle Desiree 3 Plus Sensor device 04/02/20 25 Active busPIRone (BUSPAR) 15 mg tablet Take 1 tablet (15 mg total) by mouth. 04/14/20 25 Active cefpodoxime (VANTIN) 200 mg tablet Take 1 tablet (200 mg total) by mouth 2 (two) times a day. 03/11/20 25 Active clonazePAM (KlonoPIN) 0.5 mg tablet Take 1 tablet (0.5 mg total) by mouth. 04/16/20 25 Active cloNIDine (CATAPRES) 0.1 mg tablet Take 1 tablet (0.1 mg total) by mouth 2 (two) times a day. for 90 days 02/14/20 25 Active DULoxetine (CYMBALTA) [address] capsule Take 1 capsule (60 mg total) by mouth 2 (two) times a day. 04/02/20 25 Active gabapentin (NEURONTIN) 300 mg capsule Take 1 capsule (300 mg total) by mouth. 04/18/20 25 Active lisinopriL (PRINIVIL,ZEST RIL) 10 mg tablet Take 1 tablet (10 mg total) by mouth 1 (one) time each day. 01/31/20 25 Active LORazepam (ATIVAN) 1 mg tablet Take 1 tablet (1 mg total) by mouth. 04/16/20 25 Active metFORMIN (GLUCOPHAGE) 1,000 mg tablet Take 1 tablet (1,000 mg total) by mouth 2 (two) times a day. 03/01/20 25 Active OXcarbazepine (TRILEPTAL) 300 mg tablet Take 1 tablet (300 mg total) by mouth 2 (two) times a day. 03/16/20 25 Active propranoloL (INDERAL) 10 mg tablet TAKE 2 TABLETS ORALLY 3 TIMES A DAY FOR 30 DAYS 04/01/20 25 Active risperiDONE (RisperDAL) 0.5 mg tablet Take 1 tablet (0.5 mg total) by mouth 2 (two) times a day. 03/01/20 25 Active Ozempic 0.25 mg or 0.5 mg (2 mg/3 mL) injection pen 0.5 MG (0.736 ML) SUBCUTANEOUSLY EVERY WEEK FOR 4 WEEKS 02/25/20 25 Active triamcinolone (KENALOG) 0.5 % cream Apply 1 Application topically. 11/23/19 25 Active ammonium lactate (AmLactin) 12 % lotion Apply topically if needed for dry skin. 400 g 04/24/20 25 026 Active nystatin (Nystop) 100,000 unit/gram powder Apply topically 1 (one) time each day. 60 g 1 04/24/20 25 025 Encounters Date Type Department Care Team Description 04/24/2025 9:00 AM EDT Consult Orthopedic Surgery - [address] [address] Eugene Jones, DPM Dermatophytosis of [...] AM EST Office Visit Orthopedic Surgery - [place] [address] [address] Eugene Jones, DPM [address] [address] Health Maintenance Due Date Last [...] this topic Insurance MEDICAID - [place] [facility] Care Teams Criminal Attorney Relationship Specialty Start Date End Date Emily Jurado PA 2 [facility], [address] [place] [address] PCP - General 12/01/24
--- OUTSIDE RECORDS SUMMARY | 2025-07-04 22:43 | XMS_ITS | Encounter Summary ---
Author Organization [facility] Address [address] [place] [address] Phone Care Team Providers Care Engraver Machine Name Role Phone Monty De Los Santos MD Primary Care Provider Dane morillo Encounter Details Date Type Department Care Team (Late st Contact Info) Description 03/02/2011 Documentation [facility] [address] [place], [place] [id number] Family Medicine, Physician [address] [place] [address] Social History Tobacco Use Types Packs/Day Years [...] on filedocumented in this encounter Care Teams Engraver Machine Relationship Specialty Start Date End Date Monty De Los Santos MD PCP - General 03/04/17 09/09/22 documented as of this encounter
--- OUTSIDE RECORDS SUMMARY | 2025-07-04 22:43 | XMS_ITS | Clinical Summary ---
Author Organization [facility] Address [address] [place] [address] Care Team Providers Care Mangle Tender Cloth Name Role Phone Emily Jurado PA-C Primary Care Provider [phone] Allergies Active Allergy Reactions Criticality Noted Date [...] iso morbid obesity. Ultrasound was performed in [facility] of left lower extremity due to [...] iso morbid obesity. Ultrasound was performed in [facility] of left lower extremity due to numbness and tingling. No DVT was definitively seen although vasculature was poorly visualized due to obesity. No PE seen on CTPA. - Will continue gabapentin 300 mg 3 times daily Community acquired pneumonia of right middle lob e of lung 03/10/2025 Assessment & Plan (03/10/2025 9:46 PM EDT): Patient presented as a transfer from [facility] for 7 to 10 days of cough with progressive shortness of breath and fevers. He was initially diagnosed with a viral URI after an x-ray outpatient. He was treated with Augmentin for a possible sinus infection but his symptoms persisted and he was developing worsening shortness of breath. He had an elevated D-dimer at [facility] and was transferred to for CTPA. [...] iso morbid obesity. Ultrasound was performed in [facility] of left lower extremity due to numbness and tingling. No DVT was definitively seen although vasculature was poorly visualized due to obesity. No PE seen on CTPA. - Will continue gabapentin 300 mg 3 times daily Social History Tobacco Use Types Packs/Day Years Used Date Smoking Tobacco: Never Assessed [facility] Utilities Answer Date Recorded In the past 12 months has th e [employer] oil, or water Science threatened to shut off services in your [...] any time in the past 12 m [facility], were you homeless or living [...] Influenza Vaccine 02/22/2025 COVID-19 Vaccine (1 - 2024- season) 2025 Hemoglobin A1C 06/11/2025 03/11/2025 Creatinine [...] 8.2(H) <5.7 % 03/11/2025 8:28 AM EDT [facility] Comment: A1c% Interpretation 5.7 - 6.0 Increase risk of diabetes 6.1 - 6.4 Higher risk of diabetes > or = 6.5 Consistent with diabetes Diabetes Care, 33(Supp 1):S1-S61, 2010 Estimated Average Glucose 189 mg/dL 03/11/2025 8:28 AM T [facility] Blood Blood specimen / Unknown 03/11/2025 7:17 AM EDT 03/11/2025 7:49 AM EDT us Mayte Shaikh MD LAB [place]OD [place] [address], [place] [address] * (ABNORMAL) Basic Metabolic Panel (03/11/2025 7:17 AM EDT) Glucose 215(H) 65 - 99 mg/dL 03/11/2025 8:28 AM T [facility] Comment:Fasting: <100 mg/dL, Non-Fasting: <200 mg/dL (ADA 2004) Blood Urea Nitrogen (BUN) 9 8 - 21 mg/dL 03/11/2025 8:28 AM T [facility] Creatinine 0.8 0.5 - 1.3 mg/dL 03/11/2025 8:28 AM [facility] eGFR >90 >59 03/11/2025 8:28 AM T [facility] Comment:CKD-EPI (2020) in mL /min/1.73 sq meters. Sodium 134(L) 136 - 145 mmol/L 03/11/2025 8:28 AM EDT [facility] Potassium 3.8 3.4 - 5.3 mmol/L 03/11/2025 8:28 AM EDT [facility] Comment:Specimen hemolyzed. Results may be artifactually elevated. Chloride 99 98 - 107 mmol/L 03/11/2025 8:28 AM EDT [facility] CO2 22 22 - 33 mmol/L 03/11/2025 8:28 AM EDT [facility] Anion Gap 13 7 - 17 03/11/2025 8:28 AM EDT [facility] Calcium 9.2 8.7 - 10.5 mg/dL 03/11/2025 8:28 AM EDT [facility] BUN/Creatinine Ratio 11 10.0 - 25.0 Ratio 03/11/2025 8:28 AM T [facility] Blood Blood specimen / Unknown 03/11/2025 7:17 AM EDT 03/11/2025 7:49 AM EDT us Mayte Shaikh MD LAB BLOOD ORDERABLES Final Resul t [address] [address], [address] [address] from Last 3 Months or Most Recently Relevant to Health Maintenance Insurance [facility] Advance Directives * Full Code (Latest Code Status on File) Date Activated Date Inactivated Comments 03/10/2025 9:30 PM Care Teams Mangle Tender Cloth Relationship Specialty Start Date End Date Emily Jurado PA-C [address] [place] [address] [place] [address] PCP - General 03/11/25
--- OUTSIDE RECORDS SUMMARY | 2025-07-04 22:43 | XMS_ITS | Encounter Summary ---
Author Organization [facility] Address [address] [place] [address] Phone Care Team Providers Care Spinning Frame Changer Name Role Phone Monty De Los Santos MD Primary Care Provider Dane morillo Encounter Details Date Type Department Care Team (Late st Contact Info) Description 03/10/2017 Conversion Encounter [facility] - [address] [address] Social History Tobacco Use Types Packs/Day Years [...] on filedocumented in this encounter Care Teams Spinning Frame Changer Relationship Specialty Start Date End Date Monty De Los Santos MD PCP - General 03/04/17 09/09/22 documented as of this encounter
== END 2025-07-04 15:52 | disposition home or self-care (01) ==
LOC: HO.HOP 15:11
PROVIDERS: Visit Provider Psychiatry & Neurology Psychiatry
DX: F43.12 Post-traumatic stress disorder, chronic (principal)
CPT/HCPCS: 90833; 99213